=== PATIENT | female | born 1930 | race Caucasian/White ===

== ENCOUNTER 2016-10-25 19:07 | Inpatient (IN) | payer MEDICARE, BC ==
[~2016-10-25] VITALS: Ht 160 cm; Wt 106.2 kg
[~2016-10-25 19:07] MED LIST: HYDR-4246 PO; METF500T4 PO; TRAM50TA4 PO
--- OUTSIDE RECORDS SUMMARY | 2016-10-25 19:10 | XMS REPORT ---
Author Author [facility]. Organization [facility] Address [address] [facility] [facility] [place] [address] Phone [phone] Summary purpose CCDA Sent to [facility] Chief Complaint and Reason for Visit No authorized Reason for Visit (Admitting Diagnosis) is available for this visit. Problem list No authorized problems tracked for continuity of care are available for this visit. Encounters No authorized problems tracked for encounter diagnoses are available for this visit. Medications No home medications recorded for this patient visit Allergies, adverse reactions, alerts Allergen Category Ingredient Status Reaction Severity Onset No Known Drug Allergy No Known Drug Allergy No Known Drug Allergy Active Immunizations No immunizations recorded for this patient visit Relevant diagnostic tests and/or laboratory data No authorized results are available for this patient visit History of procedures No procedures recorded for this patient visit. Functional status Cognitive Status Finding Observation Time Level of Consciousne Alert :15 Oriented to Person Yes :[address] Yes :15 Oriented to Time Yes :15 Vital signs Type Value Date Respirations 20 :19 Pulse 108 :48 O2 Saturation 92% :48 Systolic Blood Press 165mm/HG :48 Diastolic Blood Pres 94mm/HG :48 Temperature (Fahr) 98.5Degrees :19 Social history Type Value Smoking Status NEVER SMOKER Treatment Plan No treatment plan text is available for this visit. Hospital discharge instructions No discharge instruction text is available for this visit.
--- OUTSIDE RECORDS SUMMARY | 2016-10-25 19:10 | XMS REPORT ---
Author Author [facility] Organization [facility] Address [address] [facility] [address] [place] [address] Phone [phone] Summary purpose CCDA Sent to [facility] Chief Complaint and Reason for Visit No authorized Reason for Visit (Admitting Diagnosis) is available for this visit. Problem list No authorized problems tracked for continuity of care are available for this visit. Encounters No authorized problems tracked for encounter diagnoses are available for this visit. Medications No medications recorded for this patient visit Allergies, adverse reactions, alerts Allergen Category Ingredient Status Reaction Severity Onset No Known Drug Allergy No Known Drug Allergy No Known Drug Allergy Active Immunizations No immunizations recorded for this patient visit Relevant diagnostic tests and/or laboratory data RESULTS CBC :20:00 Result Normal Range Units WBC 8.01 4.8-10.8 x103/mm3 Neutrophil % 64.1 50-70 % Lymph % 24.5 20-50 % [place] % 8.0 1.0-9.0 % Eosinophil % 3.0 0-4 % Basophil % 0.4 0-2 % Neutrophil # 5.14 3.0-7.0 x103/mm3 Lymph # 1.96 1.0-4.0 x103/mm3 [place] # 0.64 0.0-0.8 x103/mm3 Eosinophil # 0.24 0-0.5 x103/mm3 Basophil # 0.03 0-0.2 x103/mm3 RBC L 3.78 4.20-5.40 x103/mm3 HGB L 11.7 12.0-16.0 g/dl HCT L 36.4 37.0-47.0 % MCV 96.3 81-99 FL MCH 31.0 27.0-31.0 pg MCHC 32.1 32.0-36.0 g/dl RDW 13.1 12-15 % Platelet 185 150-400 x103/mm3 MPV H 14.4 6.0-10.0 FL Chemistry Group [id number]:20:00 Result Normal Range Units Sodium 143 134-145 mmol/L Potassium 4.7 3.6-5.0 mmol/L Chloride 105 98-107 mmol/L CO2 24 22-30 mmol/L Glucose 91 75-110 mg/dl BUN 15 9-20 mg/dl Creatinine L .7 0.8-1.7 mg/dl Total Protein 7.7 6.3-8.2 g/dl Albumin 4.1 3.5-5.0 g/dl Calcium 9.9 8.4-10.2 mg/dl Alk Phos 80 38-126 U/L AST 19 14-36 U/L ALT 24 11-66 U/L T Bili .4 0.2-1.3 mg/dl A/G Ratio 1.1 Ratio Special Chemistry Group :20:00 Result Normal Range Units TSH 4.61 0.50-6.00 uIU/mL History of procedures Procedure Code Code Type Description Date Performed Performing Physician 71179 CPT-4 COMPLETE CBC, AUTOMATED 07-13-2015 [facility] [address]1894 CPT-4 COMPREHEN METABOLIC PANEL 07-13-2015 [facility] 63195 CPT-4 ASSAY THYROID STIM HORMONE 07-13-2015 [facility] Functional status No functional or cognitive status observations are available for this visit. Vital signs No authorized vital signs are available for this visit. Social history No Social History or smoking status observations were recorded for this visit. ( Unknown if ever smoked.) Treatment Plan No treatment plan text is available for this visit. Hospital discharge instructions No discharge instruction text is available for this visit.
--- OUTSIDE RECORDS SUMMARY | 2016-10-25 19:10 | XMS REPORT | Referral Summary ---
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 Final: Facial weakness following cerebral infarction Final: Other sequelae of cerebral infarction Final: Other disturbances of skin sensation Final: Type 2 diabetes mellitus without complications Final: Hyperlipidemia, unspecified Final: Obstructive sleep apnea (adult) (pediatric) Final: Essential (primary) hypertension Final: Disorientation, unspecified Final: Major depressive disorder, single episode, unspecified [facility]ending [facility]ician: Hilary Poon DO Admitting Physician: Yahir Edmond MD Vital Signs Most recent to 1 oldest [Reference Range]: Temperature Oral 36.5 degC [35.8-37.3 degC] (08/18/15 6:45 AM) Peripheral Pulse 76 bpm Rate [60-100 bpm] (08/18/15 6:45 AM) Heart Rate Monitored 72 bpm [60-100 bpm] (08/14/15 5:15 AM) Respiratory Rate 18 br/min [14-20 br/min] (08/18/15 6:45 AM) Blood Pressure 138/74 mmHg [90-140/60-90 mmHg] (08/18/15 6:45 AM) Mean Arterial 87 mmHg Pressure, Cuff (08/12/15 4:32 AM) SpO2 94 % (08/18/15 6:45 AM) Problem List Condition Effective Dates Status Health Status Informant Acute Active pain(Confirmed) At risk for Resolved aspiration(Confirmed )1 At risk for Resolved injury(Confirmed)2 At risk for unstable Active blood glucose level(Confirmed)3 At risk of pressure Active sore(Confirmed) Impaired 07/28/15 Active mobility(Confirmed)4 Knowledge Resolved deficit(Confirmed)5 Self -care 07/28/15 Resolved deficit(Confirmed)6 Tissue perfusion Active alteration(Confirmed )7 Diabetes mellitus Active patient type 2 in obese(Confirmed) Urinary Active incontinence(Confirm ed)8 1Problem added automatically by system based on initiation of At Risk for Aspiration Plan of Care 2Problem added automatically by system based on initiation of Risk for Injury Plan of Care 3Problem added automatically by system based on initiation of At Risk for Unstable Blood Glucose Plan of Care 4Problem added by Discern Expert 5Problem added automatically by system based on initiation of Knowledge Deficit Plan of Care 6Problem added by Discern Expert 7Problem added automatically by system based on initiation of Tissue Perfusion Cerebral Plan of Care 8Problem added automatically by system based on initiation of Urinary Incontinence Plan of Care Allergies, Adverse Reactions, Alerts No Known Medication Allergies Medications acetaminophen 325 mg oral tablet 650 mg 2 tabs, Oral, q6hr, Pain Mild (1-3), 0 Refill(s) Start Date: 07/28/15 Status: Ordered amLODIPine 5 mg oral tablet 5 mg 1 tabs, Oral, Daily, 0 Refill(s) Start Date: 08/17/15 Status: Ordered aspirin 325 mg oral tablet 325 mg 1 tabs, Oral, Daily, 0 Refill(s) Start Date: 08/17/15 Status: Ordered atorvastatin 80 mg oral tablet 80 mg 1 tabs, Oral, Daily, 0 Refill(s) Start Date: 08/17/15 Status: Ordered Benadryl 25 mg oral tablet 50 mg 2 tabs, Oral, Bedtime (once a day), Insomnia, 0 Refill(s) Start Date: 08/17/15 Status: Ordered citalopram 20 mg oral tablet 10 mg 0.5 tabs, Oral, Daily, 0 Refill(s) Start Date: 08/17/15 Status: Ordered cyclobenzaprine 5 mg oral tablet 5 mg 1 tabs, Oral, TID, Leg Cramps, 0 Refill(s) Start Date: 08/17/15 Status: Ordered insulin detemir 100 units/mL subcutaneous solution 5 units, SubCutaneous, Bedtime (once a day), 0 Refill(s) Start Date: 08/17/15 Status: Ordered lactulose 10 g/15 mL oral syrup 20 g 30 mL, Oral, TID, Constipation, 0 Refill(s) Start Date: 08/17/15 Status: Ordered Senna S 50 mg-8.6 mg oral tablet 1 tabs, Oral, BID, 0 Refill(s) Start Date: 08/17/15 Status: Ordered Voltaren 1% topical gel 1 hair, Topical, QID, 0 Refill(s) Start Date: 08/17/15 Status: Ordered Results Hematology Most recent to 1 oldest [Reference Range]: WBC [4.8-10.8 7.6 10*3/uL 10*3/uL] (08/16/15 8:39 AM) RBC [4.00-5.20] 3.95 *LOW* (08/16/15 8:39 AM) Hgb [12.0-16.0 12.1 gm/dL gm/dL] (08/16/15 8:39 AM) Hct [37.0-47.0 %] 37.7 % (08/16/15 8:39 AM) MCV [82.0-99.0 fL] 95.4 fL (08/16/15 8:39 AM) MCH [27.0-32.0 pg] 30.6 pg (08/16/15 8:39 AM) MCHC [32.0-36.0 32.1 gm/dL gm/dL] (08/16/15 8:39 AM) RDW [11.5-14.5 %] 13.2 % (08/16/15 8:39 AM) Platelet [150-400 217 10*3/uL 10*3/uL] (08/16/15 8:39 AM) MPV [9.4-12.4 fL] 12.7 fL *HI* (08/16/15 8:39 AM) Immature 0.1 % Granulocytes (08/16/15 8:39 AM) [0.0-1.0 %] Neutrophils [51-75 65 % %] (08/16/15 8:39 AM) Lymphocytes [20-46 22 % %] (08/16/15 8:39 AM) Monocytes [4-11 %] 8 % (08/16/15 8:39 AM) Eosinophils [0-4 %] 4 % (08/16/15 8:39 AM) Basophils [0-2 %] 1 % (08/16/15 8:39 AM) Neutro Absolute 4.92 10*3 [1.90-7.00 10*3] (08/16/15 8:39 AM) Lymph Absolute 1.65 10*3 [0.80-3.30 10*3] (08/16/15 8:39 AM) [place] Absolute 0.61 10*3 [0.30-1.00 10*3] (08/16/15 8:39 AM) Eos Absolute 0.32 10*3 [0.00-0.50 10*3] (08/16/15 8:39 AM) Baso Absolute 0.05 10*3 [0.00-0.20 10*3] (08/16/15 8:39 AM) Chemistry Most recent to 1 oldest [Reference Range]: Sodium Lvl [136-144 137 mEq/L mEq/L] (08/16/15 8:39 AM) Potassium Lvl 4.2 mEq/L [3.6-5.1 mEq/L] (08/16/15 8:39 AM) Chloride [99-109 107 mEq/L mEq/L] (08/16/15 8:39 AM) CO2 [22-32 mEq/L] 22 mEq/L (08/16/15 8:39 AM) AGAP [3-20] 8 (08/16/15 8:39 AM) BUN [4-20 mg/dL] 17 mg/dL (08/16/15 8:39 AM) Glucose Lvl [70-100 135 mg/dL mg/dL] *HI* (08/16/15 8:39 AM) Creatinine Lvl 0.69 mg/dL [0.44-1.03 mg/dL] (08/16/15 8:39 AM) eGFR [>60] >60 1 (08/16/15 8:39 AM) Calcium Lvl 9.2 mg/dL [8.6-10.0 mg/dL] (08/16/15 8:39 AM) Albumin Lvl [3.5-4.8 3.9 gm/dL gm/dL] (08/16/15 8:39 AM) Magnesium Lvl 2.2 mg/dL [1.8-2.5 mg/dL] (08/16/15 8:39 AM) Phosphorus [2.4-4.7 2.9 mg/dL 2 mg/dL] (08/16/15 8:39 AM) Blood Glucose, 170 mg/dL Capillary [70-100 *HI* mg/dL] (08/18/15 12:24 PM) 1Result Comment: Multiply eGFR results by 1.21 for race. 2Result Comment: High dosages of liposomal Amphotericin B (AmBisome) therapy or other drug preparations that use a liposomal envelope to facilitate drug delivery may cause falsely elevated results for phosphorus. Urinalysis Most recent to 1 oldest [Reference Range]: UA Color Lt Yellow (08/18/15 6:40 AM) UA Appear Clear (08/18/15 6:40 AM) UA pH [5.0-8.0] 5.0 (08/18/15 6:40 AM) UA Leuk Est Negative [Negative] (08/18/15 6:40 AM) UA Nitrite Negative [Negative] (08/18/15 6:40 AM) UA Protein Negative [Negative] (08/18/15 6:40 AM) UA Glucose Negative [Negative] (08/18/15 6:40 AM) UA Ketones Trace [Negative] *ABN* (08/18/15 6:40 AM) UA Urobilinogen Negative [<1.0] (08/18/15 6:40 AM) UA Bili [Negative] Negative (08/18/15 6:40 AM) UA Blood [Negative] Negative (08/18/15 6:40 AM) UA Spec Grav 1.020 [1.003-1.030] (08/18/15 6:40 AM) Type Clean Catch (08/18/15 6:40 AM) UA WBC [0-4] 10-20 *ABN* (08/10/15 7:00 PM) UA RBC [0-2] 0-2 (07/28/15 10:44 PM) Epithelial Cells 5-10 (08/10/15 7:00 PM) UA Bacteria Moderate *ABN* (08/10/15 7:00 PM) Crystals Amorphous (08/10/15 7:00 PM) Microbiology Reports TEST: Urine Culture STATUS: Auth (Verified) BODY SITE: SOURCE: Urine COLLECTED DATE/TIME: 08/10/15 7:00 PM Urine Culture - - - - - - - Positive urine culture (even if >100,000 cfu/ml) without presence of symptoms does not require antibiotic treatment unless the patient is or undergoing urinary surgery. Please document as bacteriuria. Klebsiella pneumoniae >100,000 cfu/ml ORGANISM:Klebsiella pneumoniae TEST: Urine Culture STATUS: Auth (Verified) BODY SITE: SOURCE: Urine, Clean Catch COLLECTED DATE/TIME: 07/28/15 10:44 PM Urine Culture Low counts of multiple isolates. No further workup will be performed on this culture. Immunizations Vaccine Date Refusal Reason influenza virus vaccine, inactivated 08/03/15 Patient Refuses pneumococcal 23-polyvalent vaccine 08/09/04 pneumococcal 23-polyvalent vaccine 07/13/99 tetanus-diphth toxoids (Td) adult/adol 06/29/99 Procedures No data available for this section Social History Social History Type Response Smoking Status Former smoker Assessment and Plan No data available for this section
--- OUTSIDE RECORDS SUMMARY | 2016-10-25 19:10 | XMS REPORT | Referral Summary ---
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 Role Phone No PCP, Pt States Primary Care Physician [phone] Encounter VC Date(s): 07/24/15 - 07/28/15 [facility] [address] [place] [address] Discharge Disposition: [facility]-Inpatient Rehab Facility Attending Physician: Rashard Bauer JR, MD Admitting Physician: Marcus Tabor MD Vital Signs Most recent to 1 oldest [Reference Range]: Temperature Oral 36.8 degC [35.8-37.3 degC] (07/24/15 8:36 PM) Temperature Tympanic 36.8 degC [36.6-38.1 degC] (07/24/15 11:33 PM) Temperature Temporal 36.6 degC Artery [36.3-37.8 (07/28/15 8:00 AM) degC] Peripheral Pulse 104 bpm Rate [60-100 bpm] *HI* (07/26/15 4:07 AM) Heart Rate Monitored 93 bpm [60-100 bpm] (07/28/15 9:00 AM) Respiratory Rate 20 br/min [14-20 br/min] (07/28/15 9:00 AM) Blood Pressure 135/80 mmHg [90-140/60-90 mmHg] (07/28/15 9:00 AM) Mean Arterial 90 mmHg Pressure, Cuff (07/28/15 9:00 AM) SpO2 95 % (07/28/15 9:00 AM) Problem List Condition Effective Dates Status Health Status Informant Acute Active pain(Confirmed) At risk for Active aspiration(Confirmed )1 At risk for Active injury(Confirmed)2 At risk for unstable Active blood glucose level(Confirmed)3 At risk of pressure Active sore(Confirmed) Impaired 07/28/15 Active mobility(Confirmed)4 Knowledge Active deficit(Confirmed)5 Self -care 07/28/15 Active deficit(Confirmed)6 Tissue perfusion Active alteration(Confirmed )7 Diabetes [...] tablet 650 mg 2 tabs, Oral, q6hr, Fever, 0 Refill(s) Start Date: 07/28/15 Status: Ordered Results Hematology Most recent to 1 oldest [Reference Range]: WBC [4.8-10.8 12.7 10*3/uL 10*3/uL] *HI* (07/28/15 3:41 AM) RBC [4.00-5.20] 4.26 (07/28/15 3:41 AM) Hgb [12.0-16.0 13.0 gm/dL gm/dL] (07/28/15 3:41 AM) Hct [37.0-47.0 %] 39.9 % (07/28/15 3:41 AM) MCV [82.0-99.0 fL] 93.7 fL (07/28/15 3:41 AM) MCH [27.0-32.0 pg] 30.5 pg (07/28/15 3:41 AM) MCHC [32.0-36.0 32.6 gm/dL gm/dL] (07/28/15 3:41 AM) RDW [11.5-14.5 %] 13.6 % (07/28/15 3:41 AM) Platelet [150-400 242 10*3/uL 10*3/uL] (07/28/15 3:41 AM) MPV [9.4-12.4 fL] 12.8 fL *HI* (07/28/15 3:41 AM) Immature 0.6 % Granulocytes (07/24/15 8:10 PM) [0.0-1.0 %] Neutrophils [51-75 70 % %] (07/24/15 8:10 PM) Lymphocytes [20-46 18 % %] *LOW* (07/24/15 8:10 PM) Monocytes [4-11 %] 8 % (07/24/15 8:10 PM) Eosinophils [0-4 %] 3 % (07/24/15 8:10 PM) Basophils [0-2 %] 0 % (07/24/15 8:10 PM) Neutro Absolute 7.31 10*3 [1.90-7.00 10*3] *HI* (07/24/15 8:10 PM) Lymph Absolute 1.88 10*3 [0.80-3.30 10*3] (07/24/15 8:10 PM) [place] Absolute 0.84 10*3 [0.30-1.00 10*3] (07/24/15 8:10 PM) Eos Absolute 0.27 10*3 [0.00-0.50 10*3] (07/24/15 8:10 PM) Baso Absolute 0.04 10*3 [0.00-0.20 10*3] (07/24/15 8:10 PM) Nucleated RBC 0.0 /100 WBC Automated [0 /100 (07/24/15 8:10 PM) WBC] Coagulation Most recent to 1 oldest [Reference Range]: INR [0.9-1.2] 1.0 (07/24/15 8:10 PM) PTT [25.0-35.0 34.5 seconds seconds] (07/24/15 8:10 PM) Chemistry Most recent to 1 oldest [Reference Range]: Sodium Lvl [136-144 137 mEq/L mEq/L] (07/28/15 3:41 AM) Potassium Lvl 3.7 mEq/L [3.6-5.1 mEq/L] (07/28/15 3:41 AM) Chloride [99-109 108 mEq/L mEq/L] (07/28/15 3:41 AM) CO2 [22-32 mEq/L] 20 mEq/L *LOW* (07/28/15 3:41 AM) AGAP [3-20] 9 (07/28/15 3:41 AM) BUN [4-20 mg/dL] 29 mg/dL *HI* (07/28/15 3:41 AM) Glucose Lvl [70-100 149 mg/dL mg/dL] *HI* (07/28/15 3:41 AM) Creatinine Lvl 0.83 mg/dL [0.44-1.03 mg/dL] (07/28/15 3:41 AM) eGFR [>60] >60 1 (07/28/15 3:41 AM) Calcium Lvl 9.1 mg/dL [8.6-10.0 mg/dL] (07/28/15 3:41 AM) Albumin Lvl [3.5-4.8 3.8 gm/dL gm/dL] (07/28/15 3:41 AM) Magnesium Lvl 2.3 mg/dL [1.8-2.5 mg/dL] (07/28/15 3:41 AM) Phosphorus [2.4-4.7 2.9 mg/dL 2 mg/dL] (07/28/15 3:41 AM) Troponin [<0.06 <0.05 ng/mL ng/mL] (07/24/15 8:10 PM) Sodium Venous 135 mEq/L [136-144 mEq/L] *LOW* (07/24/15 8:24 PM) Potassium Venous 4.1 mEq/L 3 [3.6-5.1 mEq/L] (07/24/15 8:24 PM) Calcium Ionized 1.09 mmol/L Venous [1.19-1.41 *LOW* mmol/L] (07/24/15 8:24 PM) Total CO2 Venous 25 mEq/L [25-29 mEq/L] (07/24/15 8:24 PM) HGB Venous NPT 11.2 gm/dL [12.0-16.0 gm/dL] *LOW* (07/24/15 8:24 PM) HCT Venous 33.0 % [37.0-47.0 %] *LOW* (07/24/15 8:24 PM) Glucose Venous 155 mg/dL [70-100 mg/dL] *HI* (07/24/15 8:24 PM) BUN Venous [4-20] 15 (07/24/15 8:24 PM) Creatinine Venous 0.9 mg/dL [0.4-1.0 mg/dL] (07/24/15 8:24 PM) Venous CL [99-109 113 mEq/L mEq/L] *HI* (07/24/15 8:24 PM) Anion Gap, Josr -3 [3-20] *LOW* (07/24/15 8:24 PM) Blood Glucose, 159 mg/dL Capillary [70-100 *HI* mg/dL] (07/28/15 7:03 AM) Chol [0-200 mg/dL] 212 mg/dL *HI* (07/25/15 3:52 AM) Trig [0-150 mg/dL] 181 mg/dL *HI* (07/25/15 3:52 AM) HDL [>40 mg/dL] 37 mg/dL *ABN* (07/25/15 3:52 AM) LDL [0-100 mg/dL] 139 mg/dL *HI* (07/25/15 3:52 AM) VLDL Cholesterol 36 mg/dL [0-30 mg/dL] *HI* (07/25/15 3:52 AM) Cardiac Risk 5.7 [0.0-5.0] *HI* (07/25/15 3:52 AM) Hgb A1c [4.1-5.6 %] 6.7 % *HI* (07/24/15 8:10 PM) eAvg Glucose 145.6 mg/dL (07/24/15 8:10 PM) 1Result Comment: Multiply eGFR results by 1.21 for race. 2Result Comment: High dosages of liposomal Amphotericin B (AmBisome) therapy or other drug preparations that use a liposomal envelope to facilitate drug delivery may cause falsely elevated results for phosphorus. 3Result Comment: This test was performed on a whole blood specimen. The presence or absence of hemolysis cannot be assessed. Hemolysis can falsely elevate potassium levels. Normals are for venous specimens only. Urinalysis Most recent to 1 oldest [Reference Range]: UA Color Yellow (07/25/15 8:39 AM) UA Appear Sl Cloudy (07/25/15 8:39 AM) UA pH [5.0-8.0] 7.0 (07/25/15 8:39 AM) UA Leuk Est Negative [Negative] (07/25/15 8:39 AM) UA Nitrite Negative [Negative] (07/25/15 8:39 AM) UA Protein Negative [Negative] (07/25/15 8:39 AM) UA Glucose Negative [Negative] (07/25/15 8:39 AM) UA Ketones Negative [Negative] (07/25/15 8:39 AM) UA Urobilinogen Negative [<1.0] (07/25/15 8:39 AM) UA Bili [Negative] Negative (07/25/15 8:39 AM) UA Blood [Negative] Negative (07/25/15 8:39 AM) UA Spec Grav 1.020 [1.003-1.030] (07/25/15 8:39 AM) Type Clean Catch (07/25/15 8:39 AM) Immunizations Vaccine Date Refusal Reason pneumococcal 23-polyvalent vaccine 08/09/04 pneumococcal 23-polyvalent vaccine 07/13/99 tetanus-diphth toxoids (Td) adult/adol 06/29/99 Procedures No data available for this section Social History Social History Type Response Smoking Status Former smoker Assessment and Plan No data available for this section
--- OUTSIDE RECORDS SUMMARY | 2016-10-25 19:10 | XMS REPORT | Continuity of Care Document ---
Author Author [facility] [employer]. Organization [facility] Address Unknown Phone Unavailable Allergies Active Description Code Type Severity Reaction Onset Reported/Identified Relationship to Patient Clinical Status Yes No Known Drug Allergy 84047266 ND N/A N/A 04/22/2015 Confirmed or Verified Medications Problems Date Dx Coded Attending Type Code Diagnosis Diagnosed By 08/26/2013 SNEHA DAHL MD, BETSY Martines 250.00 DM2/NOS UNCOMP NSU 08/26/2013 BETSY MENJIVAR MD 715.16 LOC PRIM OSTEOART-L/LEG 12/25/2013 SNEHA DAHL MD, BETSY Martines 250.00 DM2/NOS UNCOMP NSU 12/25/2013 BETSY MENJIVAR MD 715.16 LOC PRIM OSTEOART-L/LEG 04/22/2015 BARI DIANE, SANDRA Martines J02.9 Acute pharyngitis, unspecified 07/13/2015 SNEHA DAHL MD, BETSY Martines E11.9 Type 2 diabetes mellitus without complications 07/13/2015 SNEHA DAHL MD, BETSY Martines R53.82 Chronic fatigue, unspecified Procedures Code Description [place] [address] METABOLIC PANEL TOTAL CA SNEHA DAHL MD, BETSY R 08/26/2013 28797 COMPLETE CBC, AUTOMATED SNEHA DAHL MD, BETSY Polanco 08/26/2013 79380 METABOLIC PANEL TOTAL CA SNEHA DAHL MD, BETSY R 12/25/2013 34334 LIPID PANEL SNEHA DAHL MD, BETSY Polanco 12/25/2013 60024 COMPLETE CBC, AUTOMATED SNEHA DAHL MD, BETSY Polanco 12/25/2013 39478 EMERGENCY DEPT VISIT SANDRA CANDELARIA MD 04/22/2015 29954 COMPREHEN METABOLIC PANEL SNEHA DAHL MD, BETSY Polanco 07/13/2015 11790 ASSAY THYROID STIM HORMONE SNEHA DAHL MD, BETSY Polanco 07/13/2015 83306 COMPLETE CBC, AUTOMATED SNEHA DAHL MD, BETSY Polanco 07/13/2015 Encounters ACCT No. Visit Date/Time Discharge Status Pt. Type Provider Facility Loc./Unit Complaint [id number] 07/14/2015 09:39:00 07/14/2015 09:39:00 DIS Outpatient SNEHA DAHL MD, [facility] [id number] 04/22/2015 19:13:00 04/22/2015 21:00:00 DIS Emergency BARI DIANE, [facility] ER [id number] 12/25/2013 13:30:00 12/25/2013 13:30:00 DIS Outpatient SNEHA DAHL MD, [facility] [id number] 08/26/2013 14:57:00 08/26/2013 14:57:00 [facility]
--- OUTSIDE RECORDS SUMMARY | 2016-10-25 19:10 | XMS REPORT | Continuity of Care Document ---
Author Author [facility] Organization [facility] Address Unknown Phone Unavailable Support Name Relationship Address Phone KERWINVINAY SAMPSON Caregiver [facility] [address] [place], [place] [id number] BETSY MENJIVAR MD Caregiver [facility] [address] [place] [address] RODERICK NEAL Next Of Kin [address] [place] [address] Advance Directives Directive Response Recorded Date/Time Advanced Directives Type None 06/22/14 1:17pm Problems Medical Problems Problem Onset Date Status Contusion of coccyx Unknown Active Fall Unknown Active Contusion of coccyx Unknown Active Medications Medication Dose Route Sig Days/Qty Instructions Order Date Discontinued Date Status Metformin HCl 500 Mg PO TWICE DAILY WITH MEALS Take one tablet, by mouth , 2 times a day with Meals. 06/22/14 Active Tramadol HCl 50 Mg PO PRN PAIN/AIR HUNGER 06/22/14 Active Hydrocodone/Acetaminophen 1 Tab PO EVERY 4-6 HOURS 20 Qty 06/22/14 Active Social History Social History Problem Response Recorded Date/Time Tobacco Usage none 06/22/2014 2:31pm Query Response Start Date Stop Date Smoking Status Never smoker Hospital Discharge Instructions Discharge Medications/Orders are not finalized. Discharge Medications/Orders are not finalized. Reason for Hospitalization: Hyponatremia I was in the hospital because (patient own words): "BUMPED MY HEAD" Discharge Diet: Regular; fluid restrict to 1500 cc/day Discharge Activity: Up with Assistance Follow Up Appointments: Dr Gallardo post discharge from [facility] Condition at time of discharge: Good Nebulizer Notify Physician If: Short of breath or wheezing Condition at time of discharge: Fair at [phone]. 2. Problems such as: Temp above 101.5 degrees You develop redness, excessive swelling of the incision, increasing pain or excessive foul smelling drainage. 3. If the office is closed, call [facility] at [phone] and have your Surgeon paged. Condition at time of discharge: Fair Discharge Diet: Regular Diet Discharge Activity: No weight bearing on left leg. Elevate left leg. Apply ice pack to left knee to reduce swelling. May ambulate with front wheeled walker but must avoid weight bearing left leg. Follow Up Appointments: Scheduled for surgical repair of left tibial plateau fracture by Dr. Guillermo Robb on 06/22/14. Patient Instructions: Same as discharge activity listed above Take medications as directed. Durable Medical Equipment: Front wheeled Walker Notify Physician If: Severe pain not controlled with Roxicodone 5 mg 1-2 tabs po q4-6hrs prn pain. Condition at time of discharge: Good Plan of Care Prescriptions See Medications Section Functional Status Query Response Date Recorded Physical Hygiene Self June 22, 2014 2:12pm Disabilities None June 22, 2014 2:12pm Devices Used Cane June 22, 2014 2:12pm Dressing Self June 22, 2014 2:12pm Ambulation Self June 22, 2014 2:12pm Diet Self June 22, 2014 2:12pm Mental Status Alert Oriented June 22, 2014 2:12pm Disabilities None June 22, 2014 2:12pm Devices Used Cane June 22, 2014 2:12pm Physical Hygiene Self June 22, 2014 2:12pm Dressing Self June 22, 2014 2:12pm Ambulation Self June 22, 2014 2:12pm Diet Self June 22, 2014 2:12pm Allergies, Adverse Reactions, Alerts Allergen Type Severity Reaction Status Last Updated No Known Allergies Active 06/22/14 Immunizations Name Given Type Hx Influenza Vaccination Y FALL 2013 Historical Hx Influenza Vaccination Y FALL 2013 Historical Vital Signs Acute Vital Signs Vital Response Date/Time Temperature (Fahrenheit) 97.2 deg F (96.8 - 99.1) Temperature (Calculated Celsius) 36.51715 degrees C (36.0 - 37.3) Pulse Rate (adult) 82 bpm (60 - 100) Respiratory Rate 16 breaths/min (10 - 20) O2 Sat by Pulse Oximetry 100 % (90 - 100) Blood Pressure 133/62 mm Hg Height 5 ft 4 in Weight 200 lb Body Mass Index 34.0 kg/m^2 Results Name: ESEQUIEL NEAL Unit #: [id number] : 1930 Sex: F Loc / Svc: ED DOS: 06/22/14 Signed Report #: [id number] DIAGNOSTIC IMAGING REPORT TYPE OF EXAM: PELVIS AP (1 or 2 view) Dictated By: GUILLERMO GREENE MD INDICATION: ITS.REASON: TAILBONE PAIN, FALL PELVIS AP (1 or 2 view): Comparison: None Findings: There is no acute fracture, dislocation or malalignment identified. Degenerative changes in the visualized lower lumbar spine. Mild degenerative change in both hips. Bony demineralization. Impression: No acute osseous abnormality. . Procedures No known history of procedures. Encounters Encounter Location Date/Time Departed Emergency Room [facility] 06/22/14 12:11pm Recent Diagnosis
--- OUTSIDE RECORDS SUMMARY | 2016-10-25 19:10 | XMS REPORT | Referral Summary ---
Author Author [facility] Organization [facility] Address Unknown Phone Unavailable Care Team Providers Care Receptionist Secretary Name Role Phone Murray Candelario Primary Care Physician [phone] Encounter [facility] [id number] Date(s): 11/22/15 - 11/22/[address] [facility] [address] [facility] [address] [place], [place] [address] Discharge Diagnosis: Acute ischemic stroke Discharge Diagnosis: Diabetes Discharge Diagnosis: HLD (hyperlipidemia) Discharge Diagnosis: Right hemiparesis Discharge Disposition: 01-Home or Self Care Attending Physician: Elijah Rodriguez MD Admitting Physician: Elijah Rodriguez MD Vital Signs Most recent to 1 oldest [Reference Range]: Peripheral Pulse 78 bpm Rate [60-100 bpm] (11/22/15 12:48 PM) Blood Pressure 126/70 mmHg [90-140/60-90 mmHg] (11/22/15 12:48 PM) Problem List Condition Effective Dates Status Health [...] 0 Refill(s) Start Date: 08/17/15 Status: Ordered metFORMIN 500 mg oral tablet 500 mg 1 tabs, Oral, BID, # 60 tabs, 0 Refill(s) Start Date: 11/22/15 Status: Ordered Senna S 50 mg-8.6 mg oral tablet 1 tabs, Oral, BID, 0 Refill(s) Start Date: 08/17/15 Status: Ordered traMADol 50 mg oral tablet 100 mg 2 tabs, Oral, Daily, [facility] [phone], # 60 tabs, 0 Refill(s) Start Date: 11/16/15 Status: Ordered Voltaren 1% topical gel 1 hair, Topical, QID, 0 Refill(s) Start Date: 08/17/15 Status: Ordered Results No data available for this section Immunizations Vaccine Date Refusal Reason influenza virus vaccine, inactivated 08/03/15 Patient Refuses pneumococcal 23-polyvalent vaccine 08/09/04 pneumococcal 23-polyvalent vaccine 07/13/99 tetanus-diphth toxoids (Td) adult/adol 06/29/99 Procedures No data available for this section Social History Social History Type Response Smoking Status Former smoker Assessment and Plan Extracted from: Title: Neurology initial Office Author: Elijah Rodriguez MD Date: 11/22/15 Visit Note Assessment/Plan 1.Acute ischemic stroke Discussed risk factors for her ischemic stroke including DM, hyperlipidemia, and age. Continue ASA 325mg daily Continue Lipitor 80mg daily Stroke counselling: We discussed smoke cessation, healthy diet, exercise, stroke risk factors, signs and symptoms of stroke, what to do in case of suspected acute stroke, options of treatment for acute ischemic stroke including tPA, importance of dialling 911. 2.Diabetes Continue management per PCP 3.HLD (hyperlipidemia) Continue [id number] daily 4.Right hemiparesis Continue physical therapy, the patient reports continued improvement Time spent with the patient: 45min with greater than 50% of the office visit spent in counseling the patient, coordination of care, reviewing diagnostic studies, treatment options, follow up plan, and answering the patient's questions. No need for routine follow up but I will be happy to schedule a follow up appointment if the patient and/or the PCP wish so.
--- NOTE | 2016-10-25 19:23 | NUR ---
TO XRAY VIA CART
--- OUTSIDE RECORDS SUMMARY | 2016-10-25 19:33 | XMS REPORT | Continuity of Care Document ---
Author Author [facility] [employer]. Organization [facility] Address Unknown Phone Unavailable Allergies Active Description Code Type Severity Reaction Onset Reported/Identified Relationship to Patient Clinical Status Yes No Known Drug Allergy 94614165 ND N/A N/A 04/22/2015 Confirmed or Verified [...] Procedures Code [place] [address] METABOLIC PANEL TOTAL CA SNEHA DAHL MD, BETSY R 08/26/2013 42006 COMPLETE CBC, AUTOMATED SNEHA DAHL MD, BETSY Polanco 08/26/2013 [id number] METABOLIC PANEL TOTAL CA SNEHA DAHL MD, BETSY R 12/25/2013 87956 LIPID PANEL SNEHA DAHL MD, BETSY Polanco 12/25/2013 [id number] COMPLETE CBC, AUTOMATED SNEHA DAHL MD, BETSY Polanco 12/25/2013 86450 EMERGENCY DEPT VISIT SANDRA CANDELARIA MD 04/22/2015 [id number] COMPREHEN METABOLIC PANEL SNEHA DAHL MD, BETSY Polanco 07/13/2015 47137 ASSAY THYROID STIM HORMONE SNEHA ADHL MD, BETSY Polanco 07/13/2015 [id number] COMPLETE CBC, AUTOMATED SNEHA DAHL MD, BETSY Polanco 07/13/2015 Encounters ACCT No. Visit Date/Time Discharge Status Pt. Type Provider Facility Loc./Unit Complaint [id number] 07/14/2015 09:39:00 07/14/2015 09:39:00 DIS Outpatient SNEHA DAHL MD, [facility] [id number] 04/22/2015 19:13:00 04/22/2015 21:00:00 DIS Emergency BARI DIANE, [facility] ER [id number] 12/25/2013 13:30:00 12/25/2013 13:30:00 DIS Outpatient SNEHA DAHL MD, [facility] [id number] 08/26/2013 14:57:00 08/26/2013 14:57:00 [facility]
--- OUTSIDE RECORDS SUMMARY | 2016-10-25 19:33 | XMS REPORT | Continuity of Care Document ---
Author Author [facility] Organization [facility] Address Unknown Phone Unavailable Support Name Relationship Address Phone KERWINVINAY SAMPSON Caregiver [facility] [address] [place], [place] [phone] BETSY MENJIVAR MD Caregiver [facility] [address] [place] [address] RODERICK NEAL Next Of Kin [address] [place] [address] Advance Directives Directive Response Recorded Date/Time Advanced [...] Up with Assistance Follow Up Appointments: Dr Gallarod post discharge from [facility] [place] Condition at time of discharge: Good Nebulizer Notify Physician If: Short of breath or wheezing Condition at time of discharge: Fair at [phone]. 2. Problems such as: Temp above 101.5 degrees You develop redness, excessive swelling of the incision, increasing pain or excessive foul smelling drainage. 3. If the office is closed, call [facility] at [phone] and have your Surgeon paged. Condition at [...] F (96.8 - 99.1) Temperature (Calculated Celsius) 36.16574 degrees C (36.0 - 37.3) Pulse Rate (adult) 82 bpm (60 - 100) Respiratory Rate 16 breaths/min (10 - 20) O2 Sat by Pulse Oximetry 100 % (90 - 100) Blood Pressure 133/62 mm Hg Height 5 ft 4 in Weight 200 lb Body Mass Index 34.0 kg/m^2 Results Name: ESEQUIEL NEAL Unit #: [id number] : 1930 Sex: F Loc / Svc: ED DOS: 06/22/14 Signed Report #: [id number] DIAGNOSTIC IMAGING REPORT TYPE OF EXAM: PELVIS [...] Encounters Encounter Location Date/Time Departed Emergency Room [facility] 06/22/14 12:11pm Recent Diagnosis
--- NOTE | 2016-10-25 19:41 | ERPDOC ---
Departure Disposition Decision Date: Oct 25, 2016 Disposition Decision Time: 20:21 (KATHY FLORES APRN) Disposition: 01 DISCHARGED HOME, SELF-CARE Impression Impression (KATHY FLORES APRN) Impression: Primary Impression: Right femoral shaft fracture Qualified Codes: S72.321A - Displaced transverse fracture of shaft of right femur, initial encounter for closed fracture Severity: Moderate (KATHY FLORES APRN) Condition: Stable Seen By: Mid-level only (KATHY FLORES APRN) Referrals: BETSY MENJIVAR MD (Family) Problems/Meds/Labs Reviewed?: Yes Medications reviewed and manag: Yes (KATHY FLORES APRN) Follow up care ordered?: Yes Mental Status: Alert (KATHY FLORES APRN) Scripts Furosemide (Furosemide) 40 Mg Tablet 40 MG PO DAILY for 30 Days, #30 TAB Prov: HERNANDO GALEANO MD 10/30/16 Tramadol HCl (Ultram) 50 Mg Tablet 100 MG PO Q6H Y for PAIN for 30 Days, #240 TAB Prov: HERNANDO GALEANO MD 10/30/16 Enoxaparin Sodium (Lovenox) 40 Mg/0.4 Ml Inj 40 MG SQ Q24H for 30 Days Prov: HERNANDO GALEANO MD 10/30/16 Cephalexin (Keflex) 500 Mg Capsule 1 CAP PO TID for 3 Days, #9 CAP Prov: HERNANDO GALEANO MD 10/30/16 HPI - Hip Pain General Chief Complaint: Fall Stated Complaint: FALL Time Seen by Provider: 19:07 Source: patient, EMS Exam Limitations: no limitations (KATHY FLORES APRN) Time Seen by Provider: 19:07 (LOREE TERAN DO) HPI - Hip Pain Initial Comments She took her motorized scooter outside today to feed the chickens. The scooter tipped over and she fell out. 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 She was unable to get up and laid there for about 15 minutes. EMS was called as she was having a lot of right sided hip pain. Was noted to have shortening and rotation of the right leg once on the EMS cot. Was given Fentanyl 100mcg per EMS. She did hit her face on the ground when she fell and has abrasions on the face but is alert and oriented. Did not have any LOC and denies any neck pain. Occurred At: home Onset: Rapid Duration: 1-3 hrs Severity: moderate Location: hip (R) Associated Symptoms: trouble walking, DENIES: fatigue, fever, groin pain, insomnia, lumps, muscle aches, pain radiating to knees Hx of Similar Symptoms: No (NOLD,KATHY N FIRE MEDIC) Allergies: Coded Allergies: No Known Allergies (Unverified , 10/25/16) Past History Patient Medical History Problem List Updates: CVA with right sided weakness (NOLD,KATHY N FIRE MEDIC) Past Medical History Metabolic: diabetes, hypercholesterolemia Neurological: CVA Musculoskeletal: back pain, osteoarthritis (NOLD,KATHY N FIRE MEDIC) Surgical History Joint: knee, other (NOLD,KATHY N FIRE MEDIC) Family History Family History: Negative (NOLD,KATHY N FIRE MEDIC) Vaccines Hx Influenza Vaccination: Yes (FALL 2013) (NOLD,KATHY N FIRE MEDIC) Social History Smoking Status: Never smoker Substance Use Type: does not use Alcohol Intake: none (NOLD,KATHY N FIRE MEDIC) Review of Systems Constitutional Constitutional: DENIES: chills, dizziness, fatigue, fever, weakness (NOLD, KATHY N FI[employer] MEDIC) Cardiovascular Cardiac: DENIES: chest pain, orthopnea Rhythm/Rate: DENIES: irregular beat, palpitations (NOLD,KATHY N FIRE MEDIC) Pulmonary Respiratory: DENIES: cough, dyspnea, sputum, tachypnea (NOLD,KATHY N FIRE MEDIC) GI Upper Abdomen: DENIES: nausea, pain, vomiting Lower Abdomen: DENIES: constipation, diarrhea, pain (NOLD,KATHY N FIRE MEDIC) General: DENIES: dysuria, frequency, urgency (NOLD,KATHY N FIRE MEDIC) Musculoskeletal General: pain (right leg), tenderness (right leg and hip) (NOLD,KATHY N FIRE MEDIC) Integumentary Skin: DENIES: rash (NOLD,KATHY N FIRE MEDIC) Neurological General: DENIES: headache, numbness, tingling, weakness (NOLD,KATHY N FIRE MEDIC) Physical Exam General General Nourishment: well nourished, well developed, appears stated age, no acute distress, adult General Body Habitus: well groomed (KATHY FLORES APRN) Vitals and Pain Weight: Kilograms: Height (feet): 5 Height (inches): 4.00 Triage Pain Scale: (KATHY FLORES APRN) RN VS reviewed by Provider: Yes (KATHY FLORES APRN) Normal Exams: Neck: Full range of motion, without adenopathy, JVD, bruits or thyromegaly Chest/Resp: Clear all majano, with good airflow, and symmetry bilaterally CV: Regular rate and rhythm, without murmur or gallop, Pulses 2+ all extremities, capillary refill, <2 seconds all ext., no pedal edema noted Abdomen: Bowel sounds positive, soft, non-tender, non-distended, no hepatosplenomegaly, masses or bruits noted Lymphatic: No lymphadenopathy, or lymphedema noted Integumentary: No rashes, hives, or bruising noted Neurologic: Patient is alert, and oriented, cranial nerves, motor/sensory/ cerebellar, exams w/o gross deficits, to observation Psychiatric: Patient exhibits, appropriate attention, emotion and affect (KATHY FLORES APRN) Musculoskeletal (brief) Musculoskeletal Brief: FOUND: tenderness (She does have right lateral hip tenderness and TTP along the femur. Noted shortening and rotation on the right LE. Sensation is intact to RLE with right pedal pulse of 2+. ) (KATHY FLORES APRN) Differential Diagnoses Considering: Contusion, Fracture, Strain, Sprain (KATHY FLORES APRN) Progress Results/Orders Orders Procedure Category Date Status Time EKG EKG 10/25/[address] Head W/O Contrast CT 10/25/16 Resulted Cbc W/Auto LAB 10/25/16 Complete Diff-Reflex Manual Bmp - Basic Metabolic LAB 10/25/16 Complete Panel Pruitt (Ed) EDM 10/25/16 Transmitted 19:16 Femur Right RAD 10/25/16 Resulted Pelvis 1-2 View RAD 10/25/[address] In Facility As: ADMIT 10/25/16 Transmitted UA, LAB 10/25/16 Complete Dip&Micro(Complete) & 20:34 ( M DO) Lab Results Laboratory Tests Test 10/25/16 20:16 White Blood Count 13.0T/MM3 Red Blood Count 4.00M/MM3 Hemoglobin 12.4GM/DL Hematocrit 38.1% Mean Corpuscular Volume 95.3UM3 Mean Corpuscular Hemoglobin 31.0UUG Mean Corpuscular Hemoglobin Concent 32.5GM/DL RDW Standard Deviation 44.0FL Platelet Count 185T/MM3 Mean Platelet Volume 12.1UM3 Immature Granulocyte % (Auto) 0.5% Neutrophils (%) (Auto) 76.6% Lymphocytes (%) (Auto) 14.6% Monocytes (%) (Auto) 5.8% Eosinophils (%) (Auto) 2.1% Basophils (%) (Auto) 0.4% Absolute Immature Granulocyte (auto 0.07T/MM3 Absolute Neutrophils (auto) 9.9T/MM3 Absolute Lymphocytes (auto) 1.9T/MM3 Absolute Monocytes (auto) 0.8T/MM3 Absolute Eosinophils (auto) 0.3T/MM3 Absolute Basophils (auto) 0.1T/MM3 Turbidity < 20 Sodium Level 143MEQ/L Potassium Level 4.4MEQ/L Chloride Level 106MEQ/L Carbon Dioxide Level 23MEQ/L Anion Gap 14MEQ/L Blood Urea Nitrogen 15.0MG/DL Creatinine 0.8MG/DL Glomerular Filtration Rate Calc 68 BUN/Creatinine Ratio 19RATIO Glucose Level 133MG/DL Calculated Osmolality 278MOSM/KG Calcium Level 9.5MG/DL Icterus Index < 2 Chemistry Specimen Hemolysis < 15 (OCTOBER,LOREE M DO) Progress Progress WBC is 13. BMP is normal. UA does show nitrite positive, LE 2+, 20-30 WBC, and 4 + bacteria. Will treat with 1 G IV Rocephin. EKG shows NSR. Chest xray is clear. Head CT is negative. Xray of pelvis is without bony abnormality. Noted right femur fracture. Did talk with Dr Carmen regarding femur fracture. Will accept patient with hospitalist admission. Spoke with Dr Guevara who does accept for admission at this time. She does decline any need for pain medication while in Er. (KATHY FLORES FIRE MEDIC) Xray Xray #1: Reason for Exam: Fall with right LE shortening Xray: Pelvis Interpretation: Normal Xray #2: Reason for Exam: fall with right LE shortening Xray: Femur R Interpretation: Abnormal (right femoral shaft fracture) (KATHY FLORES APRN) CT CT : Reason for Exam: fall with head injury CT: Head no contrast Interpretation: Normal (KATHY FLORES APRN) KATHY FLORES APRN Oct 25, 2016 19:41 OCTOBERLOREE DO October 31, 2016 07:02
--- NOTE | 2016-10-25 19:59 | NUR ---
RETURN FROM CT
--- NOTE | 2016-10-25 20:16 | NUR ---
LAB LAB STAFF IN ROOM TO COLLECT BLOOD
[2016-10-25 20:30] LABS: BASOPHILS # (AUTO) 0.1 T/MM3 (0-0.2); BASOPHILS % (AUTO) 0.4 % (0-2); EOSINOPHILS # (AUTO) 0.3 T/MM3 (0-0.5); EOSINOPHILS % (AUTO) 2.1 % (0-4); HCT - HEMATOCRIT 38.1 % (36-46); HGB - HEMOGLOBIN 12.4 GM/DL (12-16); IMMATURE GRANULOCYTE # (AUTO) 0.07 T/MM3 (0.00-0.03); IMMATURE GRANULOCYTE % (AUTO) 0.5 % (0.0-0.5); LYMPHOCYTES # (AUTO) 1.9 T/MM3 (1-4.8); LYMPHOCYTES % (AUTO) 14.6 % (23-45); MEAN CORPUSCULAR HGB CONC(MCHC 32.5 GM/DL (31-37); MEAN CORPUSCULAR VOLUME 95.3 UM3 (80-100); MEAN PLATELET VOLUME 12.1 UM3 (9.4-12.4); MONOCYTES # (AUTO) 0.8 T/MM3 (0-0.8); MONOCYTES % (AUTO) 5.8 % (0-9.0); NEUTROPHILS #(AUTO)-ABSOLUTE 9.9 T/MM3 (1.8-7.7); NEUTROPHILS % (AUTO) 76.6 % (33-66)
[2016-10-25] MEDS ORDERED: ONDANSETRON 4mg/2ml INJECTION IV PRN (20:30)
[2016-10-25] MEDS ORDERED: DOCUSATE SODIUM 100 MG CAPSULE PO PRN (20:30)
[2016-10-25] MEDS ORDERED: ACETAMINOPHEN 325 MG TABLET PO PRN (20:30)
[2016-10-25] MEDS ORDERED: CITA20TA9 PO (20:35)
[2016-10-25] MEDS ORDERED: ASPI325T PO (20:35)
[2016-10-25] MEDS ORDERED: CYCL5TAB PO (20:36)
[2016-10-25] MEDS ORDERED: ACET-2890 PO (20:36)
[2016-10-25] MEDS ORDERED: ATOR80TA76 PO (20:36)
--- OUTSIDE RECORDS SUMMARY | 2016-10-25 20:37 | XMS REPORT | Continuity of Care Document ---
Author Author [facility] Organization [facility] Address Unknown Phone Unavailable Support Name Relationship Address Phone KERWINVINAY SAMPSON Caregiver [facility] [address] [place], [place] [phone] BETSY MENJIVAR MD Caregiver [facility] [address] [place] [address] RODERICK NEAL Next Of Kin [address] [place] [address] Advance Directives Directive Response Recorded Date/Time Advanced [...] Up Appointments: Dr Gallardo post discharge from [facility] Condition at time of discharge: Good Nebulizer Notify Physician If: Short of breath or wheezing Condition at time of discharge: Fair at [phone]. 2. Problems such as: Temp above 101.5 degrees You develop redness, excessive swelling of the incision, increasing pain or excessive foul smelling drainage. 3. If the office is closed, call [facility] at [phone] and have your Surgeon paged. Condition at [...] F (96.8 - 99.1) Temperature (Calculated Celsius) 36.99738 degrees C (36.0 - 37.3) Pulse Rate (adult) 82 bpm (60 - 100) Respiratory Rate 16 breaths/min (10 - 20) O2 Sat by Pulse Oximetry 100 % (90 - 100) Blood Pressure 133/62 mm Hg Height 5 ft 4 in Weight 200 lb Body Mass Index 34.0 kg/m^2 Results Name: ESEQUIEL NEAL Unit #: [id number] : 1930 Sex: F Loc / Svc: ED DOS: 06/22/14 Signed Report #: [id number] DIAGNOSTIC IMAGING REPORT TYPE OF EXAM: PELVIS [...] Encounters Encounter Location Date/Time Departed Emergency Room [facility] 06/22/14 12:11pm Recent Diagnosis
--- OUTSIDE RECORDS SUMMARY | 2016-10-25 20:37 | XMS REPORT | Continuity of Care Document ---
Author Author [facility]. Organization [facility] Address Unknown Phone Unavailable Allergies Active Description Code Type Severity Reaction Onset Reported/Identified Relationship to Patient Clinical Status Yes No Known Drug Allergy [id number] ND N/A N/A 04/22/2015 Confirmed or Verified [...] Procedures Code Description [place] [address] METABOLIC PANEL TOTAL CA SNEHA DAHL MD, BETSY R 08/26/2013 [id number] COMPLETE CBC, AUTOMATED SNEHA DAHL MD, BETSY Polanco 08/26/2013 87198 METABOLIC PANEL TOTAL CA SNEHA DAHL MD, BETSY R 12/25/2013 31646 LIPID PANEL SNEHA DAHL MD, BETSY Polanco 12/25/2013 [id number] COMPLETE CBC, AUTOMATED SNEHA DAHL MD, BETSY Polanco 12/25/2013 60259 EMERGENCY DEPT VISIT SANDRA CANDELARIA MD 04/22/2015 [id number] COMPREHEN METABOLIC PANEL SNEHA DAHL MD, BETSY Polanco 07/13/2015 [id number] ASSAY THYROID STIM HORMONE SNEHA DAHL MD, BETSY Polanco 07/13/2015 [id number] COMPLETE CBC, AUTOMATED SNEHA DAHL MD, BETSY Polanco 07/13/2015 Encounters ACCT No. Visit Date/Time Discharge Status Pt. Type Provider Facility Loc./Unit Complaint [id number] 07/14/2015 09:39:00 07/14/2015 09:39:00 DIS Outpatient SNEHA DAHL MD, [facility] [id number] 04/22/2015 19:13:00 04/22/2015 21:00:00 DIS Emergency BARI DIANE, [facility] ER [id number] 12/25/2013 13:30:00 12/25/2013 13:30:00 DIS Outpatient SNEHA DAHL MD, [facility] [id number] 08/26/2013 14:57:00 08/26/2013 14:57:00 [facility]
[2016-10-25 20:38] LABS: ANION GAP 14 MEQ/L (5-15); BUN/CREATININE RATIO 19 RATIO (6-26); CALCIUM 9.5 MG/DL (8.4-10.2); CHLORIDE 106 MEQ/L (98-107); CO2 - CARBON DIOXIDE 23 MEQ/L (22-30); CREATININE 0.8 MG/DL (0.7-1.2); GLOMERULAR FILTRATION RATE 68; GLUCOSE 133 MG/DL (65-110); POTASSIUM 4.4 MEQ/L (3.6-5); SODIUM 143 MEQ/L (134-144)
[2016-10-25 20:38] LABS: BLOOD, URINE TRACE-INTACT (NEGATIVE); COLOR,URINE YELLOW (YELLOW); LEUKOCYTE ESTERASE ,URINE 2+ (NEGATIVE); NITRITE,URINE POSITIVE (NEGATIVE); UROBILINOGEN,URINE 0.2 EU/DL (NORMAL)
[2016-10-25 20:44] LABS: BACTERIA,URINE 4+ (NEGATIVE); RBC,URINE 0-1 /HPF (0-3); WBC,URINE 20-30 /HPF (0-5)
[2016-10-25] MEDS ORDERED: GLUCOSE ORAL GEL 40% 37.5 G TUBE PO PRN (20:45)
[2016-10-25] MEDS ORDERED: DEXTROSE 50% SYRINGE 50ml (Eq. 1 AMP) IV PRN (20:45)
--- NOTE | 2016-10-25 20:45 | NUR ---
FAMILY FAMILY IN ROOM. CONVERSATION WITH PROVIDER REGARDING HER ADMISSION
--- NOTE | 2016-10-25 20:45 | NUR ---
REPORT CALLED REPORT TO KATHERINE ROLDAN
[2016-10-25] MEDS ORDERED: CEFTRIAXONE I.V. (ER USE ONLY) 1 G in NORMAL SALINE 100 ML IV ONE (21:00)
--- NOTE | 2016-10-25 21:08 | HPPDOC ---
MICHELLE BUSTAMANTE MD 10/25/16 2101: HPI - Adult Date DATE: 10/25/16 TIME: 20:56 General History of Present Illness This is an 86 y/o female w/ h/o CVA w/ Right sided residual weakness & DM type 2 who presents to ED at [facility] [place] after fall out of her motorized scooter today while feeding the chickens. She c/o right hip and leg pain and xray confirms femur fracture on the right. Patient received Fentanyl 100mcg per EMS and her pain is currently controlled. She was in her usual state of health prior to the fall out of the scooter. She denies LOC and head trauma and CT head in ER reported as negative. Patient noted to have WBCs on micro of her urine so started on Rocephin [address] Carmen of [facility] contacted and will see the patient in consult and requests admission to the Hospitalist service. CXR reported as normal and EKG NSR. Patient denies chest pain, soa, dyspnea, LAZO, n/v and no change in bowel/bladder function. Pain w/ movement of right LE. Patient to be admitted to the Hospitalist service for further evaluation and management. Past Medical History Past Medical History CVA with right sided weakness - especially minimal movement in RLL DM type 2 on Metformni Chronic low back pain on prn flexeril and Acetaminophen and/or Tramadol HLD on atorvastatin Osteoarthritis Current Medications Home Meds Reported Medications Cyclobenzaprine HCl (Cyclobenzaprine HCl) 5 Mg Tablet, 5 MG PO HS 10/25/16 Atorvastatin Calcium (Atorvastatin Calcium) 80 Mg Tablet, 80 MG PO HS 10/25/16 Acetaminophen (Acetaminophen) 650 Mg Tablet.er, 650 MG PO HS 10/25/16 Aspirin (Aspirin) 325 Mg Tablet, 325 MG PO DAILY 10/25/16 Citalopram Hydrobromide (Citalopram HBr) 20 Mg Tablet, 20 MG PO DAILY 10/25/16 Tramadol HCl (Tramadol HCl) 50 Mg Tablet, 100 MG PO DAILY Y for PAIN/AIR HUNGER 06/22/14 Metformin HCl (Metformin HCl) 500 Mg Tablet, 500 MG PO BIDWM 06/22/14 Allergies: Coded Allergies: No Known Allergies (Unverified , 10/25/16) Family History Family History: Patient's father w/ h/o CVA Social History Smoking Status: Never smoker Substance Use Type: does not use Alcohol Intake: none Marital Status: Household Members: spouse Social History Comments Patient has nursing aid that helps her w/ ADLs and has been participating recently in PT for her CVA right sided weakness Review of Systems All Other Systems All Other Systems: Reviewed (remainder of 10-point ROS Neg.) Physical Exam General General Nourishment: well nourished, well developed Height (Feet): 5 Height (Inches): 4.00 Telemetry Rhythm: Sinus Rhythm Eyes Brief: FOUND: EOMI, PERRL, NOT FOUND: scleral icterus ENMT Brief: FOUND: hearing intact, mucosa moist Neck Brief: FOUND: midline, NOT FOUND: JVD, nuchal rigidity Respiratory Brief: FOUND: clear all majano, equal bilaterally, symmetrical, NOT FOUND: rales, wheezes Cardiovascular (brief) Cardiac Brief: FOUND: pedal edema (trace distal LE edema), regular rate, regular rhythm Abdomen (brief) Abdominal Brief: FOUND: BS normo active x4, soft, NOT FOUND: distended, tender Integumentary (brief) Integumentary Brief: FOUND: dry, pink, warm Neurologic (brief) Comments Able to move her right arm, flex and extended at elbow and moves digits easily; some weakness w/ elevation and abduction of RUE, uses her left arm to lift her right arm high above her head; Minimal movement of the RLE Neurologic RN Documented GCS Eye Opening: (4)Spontaneous Verbal: (5)Oriented Motor: (6)Obeys Commands Total: Psychiatric (brief) FOUND: alert, attentive, normal affect, oriented Comments Very pleasant and appropriate Laboratory Laboratory Tests Test 10/25/16 20:16 10/25/16 20:34 White Blood Count 13.0T/MM3 Red Blood Count 4.00M/MM3 Hemoglobin 12.4GM/DL Hematocrit 38.1% Mean Corpuscular Volume 95.3UM3 Mean Corpuscular Hemoglobin 31.0UUG Mean Corpuscular Hemoglobin Concent 32.5GM/DL RDW Standard Deviation 44.0FL Platelet Count 185T/MM3 Mean Platelet Volume 12.1UM3 Immature Granulocyte % (Auto) 0.5% Neutrophils (%) (Auto) 76.6% Lymphocytes (%) (Auto) 14.6% Monocytes (%) (Auto) 5.8% Eosinophils (%) (Auto) 2.1% Basophils (%) (Auto) 0.4% Absolute Immature Granulocyte (auto 0.07T/MM3 Absolute Neutrophils (auto) 9.9T/MM3 Absolute Lymphocytes (auto) 1.9T/MM3 Absolute Monocytes (auto) 0.8T/MM3 Absolute Eosinophils (auto) 0.3T/MM3 Absolute Basophils (auto) 0.1T/MM3 Turbidity < 20 Sodium Level 143MEQ/L Potassium Level 4.4MEQ/L Chloride Level 106MEQ/L Carbon Dioxide Level 23MEQ/L Anion Gap 14MEQ/L Blood Urea Nitrogen 15.0MG/DL Creatinine 0.8MG/DL Glomerular Filtration Rate Calc 68 BUN/Creatinine Ratio 19RATIO Glucose Level 133MG/DL Calculated Osmolality 278MOSM/KG Calcium Level 9.5MG/DL Icterus Index < 2 Chemistry Specimen Hemolysis < 15 Urine Collection Type Cleancatch-midstream Urine Color Yellow Urine Turbidity Cloudy Urine pH 5.5 Urine Specific [place] 1.020 Urine Protein Negative Urine Glucose (UA) Negative Urine Ketones Negative Urine Blood Trace-intact Urine Nitrite Positive Urine Bilirubin Negative Urine Urobilinogen 0.2EU/DL Urine Leukocyte Esterase 2+ Urine RBC 0-1/HPF Urine WBC 20-30/HPF Urine Squamous Epithelial Cells 5-10 Urine Bacteria 4+ Urine Culture Indicated Cult reflexed &setup Assessment & Plan Assessment 1) Acute fall out of motorized scooter w/ Right Femur fracture and RLE pain POA 2) Acute UTI POA 3) DM Type 2 on oral med 4) CVA in the past w/ residual right sided weakness - uses motorized scooter to get around 5) Chronic Back Pain 6) HLD 7) Osteoarthritis Plan/Intensity of Service Admit to Hospitalist service Consult Ortho - done - Dr. Carmen notified and will see ;the patient Hold ASA Prn pain meds - both po and IV available depending on pain severity Continue home meds as otherwise indicated Diabetic Consistent carb diet NPO after midnight except for sips w/ meds NS IVFS at 75 cc/hour starting at midnight tonight Rocephin 1 gram q 24 hours with first dose given in the ED tonight Urine culture pending Correctional Scale insulin Supportive care SCDs DVT Prophylaxis: SCD'S Code Status Full Code Hospital Course Summary Disclaimer The hospital course summary below is not to be considered part of the above Progress Note. JUAN MIGUEL REAL MD 10/26/16 1016: Past Medical History Current Medications Home Meds Reported Medications Cyclobenzaprine HCl (Cyclobenzaprine HCl) 5 Mg Tablet, 5 MG PO HS 10/25/16 Atorvastatin Calcium (Atorvastatin Calcium) 80 Mg Tablet, 80 MG PO HS 10/25/16 Acetaminophen (Acetaminophen) 650 Mg Tablet.er, 650 MG PO HS 10/25/16 Aspirin (Aspirin) 325 Mg Tablet, 325 MG PO DAILY 10/25/16 Citalopram Hydrobromide (Citalopram HBr) 20 Mg Tablet, 20 MG PO DAILY 10/25/16 Tramadol HCl (Tramadol HCl) 50 Mg Tablet, 100 MG PO DAILY Y for PAIN/AIR HUNGER 06/22/14 Metformin HCl (Metformin HCl) 500 Mg Tablet, 500 MG PO BIDWM 06/22/14 Allergies: Coded Allergies: No Known Allergies (Unverified , 10/25/16) Assessment & Plan Assessment Dr. Bustamante's note reviewed. Mrs. Mueller interviewed and examined. CC: Right leg pain, fall HPI: Mrs. Mueller is an 86-year-old female who has right-sided weakness after an ischemic stroke in July 2015. She is nonambulatory as a result and uses a motorized scooter. Yesterday evening she fell from the scooter while returning to her home after feeding the chickens. Her indicates that it appeared the scooter went over an uneven surface prompting the patient to fall landing face down. He arrived immediately and the patient was conscious without confusion. No seizure activity was present. The patient describes immediate pain in her right hip and leg in addition to pain in her head. She was unable to get up and EMS was summoned bring her to the emergency room where fracture of the right proximal femur was identified. CT head was negative. She's been seen by Dr. Carmen and is scheduled for surgical stabilization later today. The patient is unable to transfer independently and a Albert lift is used at home. Patient denies any recent changes in weakness on the right side and has otherwise been doing well recently. Pyuria was noted in the emergency room but the patient has had no dysuria or urinary frequency/urgency. PH/SH/FH: agree with that recorded above with rotation the patient had no history of hyperlipidemia prior to stroke. She does have a history of hypertension, carotid stenosis, and sleep apnea. She has no prior surgeries. Echocardiogram in June 2016 revealed ejection fraction 70%. In addition to father having stroke multiple siblings have had strokes and multiple family members have tobacco-related cancers. She has one son who is a diabetic. Patient wants her to be her alternate decision-maker and after extensive discussion she confirmed DO NOT RESUSCITATE order as previously written. Primary care physician is Dr. Kendra Morales. ROS: 10 point review completed and is entirely negative other than chronic minor low back and knee pain due to arthritis. Patient is able to feed herself independently using her left arm. EXAM: General-120/67, 97.3, alert, soft-spoken, mild discomfort evident HEENT-PERRL, EOMI without nystagmus, conjugate gaze, facial structures symmetric , oropharynx clear, neck supple and without adenopathy Lungs-respirations nonlabored, clear lung majano anterior majano Cardiac-regular rhythm, S1-S2 Abd-obese, soft, nontender, diminished bowel sounds Ext-+1 nonpitting edema bilaterally Musculoskeletal-right leg slightly shortened and externally rotated relative to the left, palpation of the foot triggers spasm/pain Skin-superficial facial abrasions present, minor bruising on the right forearm without ulceration or skin tears Neuro-cranial nurse 2 through 12 intact, right flash ranging crewmember/biceps/triceps graded 4 minus/5 relative to 4+/5 on the left, right deltoid graded 2/5. Lower extremity power and not assessed; sensation intact to light touch 4 extremities Psych-calm, cooperative CT head with atrophy and evidence of past lacunar nurse infarct in the right caudate, old left frontal infarct with encephalomalacia. No acute pathology. X-rays of the pelvis and right femur reviewed demonstrating oblique proximal fracture. Chest x-ray without acute lung disease although heart is slightly enlarged with tortuous aorta. ECG reviewed by myself-sinus rhythm without acute ST-T wave changes. Laboratory data notable for drop in hemoglobin to 9.8 overnight, mild leukocytosis, and normal electrolytes. Blood sugar 139. Pyuria present. A/P: 1. Proximal femur fracture 2. UTI 3. History stroke with right hemiparesis 4. Acute blood loss anemia 5. Diabetes mellitus 6. Hypertension 7. Obstructive sleep apnea 8. Osteoarthritis Patient is medically stable to proceed with surgical stabilization of the fracture. Anticipate return to [facility] and rehabilitation where she recovered from stroke after acute rehabilitation. Continue CPAP, hold metformin initially, monitor hemoglobin as initial drop significant. Continue pain medications and IV fluids perioperatively. Continue Rocephin for UTI pending culture. Plan/Intensity of Service Multiple x-rays and EKG reviewed by myself. Prior records at [facility] reviewed. Laboratory data reviewed and discussed with orthopedics. High-risk medications in use. For surgical stabilization. MICHELLE BUSTAMANTE MD Oct 25, 2016 21:01 JUAN MIGUEL REAL MD Oct 26, 2016 10:16
[2016-10-25] MEDS ORDERED: HYDROMORPHONE 2mg/ml INJECTION IV ONE (21:30)
--- NOTE | 2016-10-25 21:45 | NUR ---
ADMISSION PT ADMITTED FROM ER TO RM 131 AT THIS TIME. PT IS ALERT AND ORIENTED X3, ABLE TO ANSWER ADMISSION QUESTIONS. SHE IS TRANSFERRED FROM CART TO BED WITH ASSIST OF 3. WILL CONTINUE TO MONITOR.
--- NOTE | 2016-10-25 21:45 | NUR ---
TRANSFER TO 131 PT IS TRANSFERRED TO ROOM 131 VIA CART. PT WAS GIVEN PAIN MEDS PRIOR TO TRANSFER TO AID IN PAIN CONTROL. PT TOLERATED WELL WITH TRANSFER.
[2016-10-25 21:48] VITALS: BP 159/77; PULSE 81; RESP 18; TEMP 99.7; O2SAT 97
[2016-10-25 21:49] VITALS: Ht 160 cm; Wt 106.2 kg
[2016-10-25] MEDS: ATORVASTATIN 40 MG TABLET PO SCH (22:00)
[2016-10-25] MEDS: NORMAL SALINE 1,000 ML IV SCH (23:04)
[2016-10-25] MEDS: CYCLOBENZAPRINE 5 MG TABLET PO SCH (23:05)
[2016-10-25] MEDS: HYDROCODONE/APAP 5 mg/325 mg TABLET PO PRN (23:05)
[2016-10-25 23:08] VITALS: PULSE 80; RESP 18; O2SAT 95
[2016-10-25 23:42] VITALS: BP 135/69; PULSE 93; TEMP 99.1; O2SAT 97
[2016-10-26] VITALS (25 sets, daily range): BP systolic 120–159; BP diastolic 58–75; PULSE 82–104; RESP 15–24; TEMP 97.3–99.2; O2SAT 91–100
[2016-10-26] MEDS: HYDROMORPHONE 2mg/ml INJECTION IV PRN ×3 (01:10→08:30)
[2016-10-26 04:51] LABS: BASOPHILS % (AUTO) 0.2 % (0-2); EOSINOPHILS # (AUTO) 0.2 T/MM3 (0-0.5); EOSINOPHILS % (AUTO) 1.2 % (0-4); HCT - HEMATOCRIT 30.7 % (36-46); HGB - HEMOGLOBIN 9.8 GM/DL (12-16); IMMATURE GRANULOCYTE # (AUTO) 0.02 T/MM3 (0.00-0.03); IMMATURE GRANULOCYTE % (AUTO) 0.2 % (0.0-0.5); LYMPHOCYTES # (AUTO) 2.2 T/MM3 (1-4.8); LYMPHOCYTES % (AUTO) 17.1 % (23-45); MEAN CORPUSCULAR HGB 30.7 UUG (26-34); MEAN CORPUSCULAR HGB CONC(MCHC 31.9 GM/DL (31-37); MEAN CORPUSCULAR VOLUME 96.2 UM3 (80-100); MEAN PLATELET VOLUME 12.3 UM3 (9.4-12.4); MONOCYTES # (AUTO) 0.7 T/MM3 (0-0.8); MONOCYTES % (AUTO) 5.1 % (0-9.0); NEUTROPHILS #(AUTO)-ABSOLUTE 9.7 T/MM3 (1.8-7.7); NEUTROPHILS % (AUTO) 76.2 % (33-66); RED BLOOD COUNT 3.19 M/MM3 (4.00-5.20); WBC - WHITE BLOOD COUNT 12.8 T/MM3 (4.5-11.0)
--- NOTE | 2016-10-26 05:05 | NUR ---
SHIFT SUMMARY PT HAS BEEN RESTING QUIETLY MOST OF THE NIGHT. SHE IS ALERT AND ORIENTED X2. SHE HAS NOT WANTED TO REPOSITION IN THE BED DUE TO THE PAIN IN THE LEG. VITALS HAVE BEEN STABLE. SHE HAS BEEN TAKING NORCO AND DILAUDID FOR PAIN AND TOLERATES WELL. SHE HAS DENIED NAUSEA. WILL CONTINUE TO MONITOR.
[2016-10-26 05:12] LABS: ANION GAP 12 MEQ/L (5-15); BUN/CREATININE RATIO 20 RATIO (6-26); CALCIUM 9.1 MG/DL (8.4-10.2); CHLORIDE 106 MEQ/L (98-107); CO2 - CARBON DIOXIDE 24 MEQ/L (22-30); CREATININE 0.7 MG/DL (0.7-1.2); GLOMERULAR FILTRATION RATE 80; GLUCOSE 139 MG/DL (65-110); POTASSIUM 4.3 MEQ/L (3.6-5); SODIUM 142 MEQ/L (134-144)
--- NOTE | 2016-10-26 07:40 | CONSPD ---
Consultation Info Date DATE: 10/26/16 TIME: 07:27 Attending Physician Tiffani Carmen MD Reason for Consultation: Right hip fracture. Impression/Recommendation Impression/Recommendation: (1) Subtrochanteric fracture of right femur Status: Acute Qualifiers: Encounter type: initial encounter Fracture type: closed Qualified Codes: S72.21XA - Displaced subtrochanteric fracture of right femur, initial encounter for closed fracture Recommendation: x Plan IM nailing with long gamma nail later today. Dr Carmen will discuss the surgical procedure, risk vs benefits, and possible complications with pt and family. Type and screen for surgery today. Labs look stable. Urine culture pending and pt on Rocephin. SCD's in place. Right hip marked for surgery. NPO for surgery today. Ortho HPI HPI Elements Location: FOUND hip (right) Injury: Yes (Fell off scooter 10/25/16 while feeding her chickens at home.) Pain: FOUND sharp Onset: Sudden Radiating: No Severity: FOUND severe (Severe when it happened. Pain is a "4" at this time.) Duration: FOUND 6-12 hours Previous Surgery: No Previous Injury: No Aggrevated by: FOUND all activity Associated Symptoms: FOUND other (Has a Right maritza paresis from a CVA in July 2016. She was not able to walk or transfer independently prior to this injury.) Treatments Tried: FOUND pain medications, FOUND immobilization X-ray Findings: FOUND other (Displaced sub trochanteric fx of the right proximal femur.) Recommendation: FOUND IM fixation (Long gamma nailing to the right femur.) Review of Systems Constitutional: REPORTS: weakness (from right CVA July 2016.), DENIES: chills, dizziness, fever Cardiovascular DENIES: chest pain Pulmonary Respiratory: DENIES: cough, dyspnea GI Upper Abdomen: DENIES: abdominal swelling, nausea, pain, vomiting General: dysuria, frequency, other (Reports that she thinks she has a UTI.) Musculoskeletal General: joint pain (Right knee is severely arthritic.), see HPI Integumentary Skin: DENIES: lesion, rash, sores Neurological General: paralysis/paresis (Right maritza paresis following CVA in July 2016.) Psychiatric Psychiatric: DENIES: depression, memory impairment Hematologic/Lymphatic DENIES: easy bruising All Other Systems Reviewed (remainder of 10-point ROS Neg.) Past Medical History Adult Problem List Updates CVA with right sided weakness - especially minimal movement in RLL DM type 2 on Metformni Chronic low back pain on prn flexeril and Acetaminophen and/or Tramadol HLD on atorvastatin Osteoarthritis Current Medications Acetaminophen (Acetaminophen) 650 Mg Tablet.er, 650 MG PO HS, (Reported) Last Taken: Unknown Dose on 10/24/161999 Aspirin (Aspirin) 325 Mg Tablet, 325 MG PO DAILY, (Reported) Last Taken: Unknown Dose on 10/25/16 0800 Atorvastatin Calcium (Atorvastatin Calcium) 80 Mg Tablet, 80 MG PO HS, (Reported) Last Taken: Unknown Dose on 10/24/161999 Citalopram Hydrobromide ( Citalopram HBr) 20 Mg Tablet, 20 MG PO DAILY, (Reported) Last Taken: Unknown Dose on 10/25/16 08 Cyclobenzaprine HCl ( Cyclobenzaprine HCl) 5 Mg Tablet, 5 MG PO HS, (Reported) Last Taken: Unknown Dose on 10/24/161999 Metformin HCl (Metformin HCl) 500 Mg Tablet, 500 MG PO BIDWM, (Reported) Last Taken: Unknown Dose on 10/25/16 08 Tramadol HCl (Tramadol HCl) 50 Mg Tablet, 100 MG PO DAILY PRN for PAIN/AIR HUNGER, (Reported) Last Taken: Unknown Dose on 10/25/16 0800 Allergies Allergies: Coded Allergies: No Known Allergies (Unverified , 10/25/16) Family History Family History: Patient's father w/ h/o CVA Vaccines FALL 2015 Social History Smoking Status: Never smoker Substance Use Type: does not use Alcohol Intake: none Marital Status: Household Members: spouse Advance Directives: Yes DPOA for Healthcare Only Physical Exam General General: well developed, no acute distress, obese Respiratory FOUND non-labored Cardiovascular FOUND pedal pulses intact Capillary Refill: <2 sec Abdomen Abdominal: FOUND soft, NOT FOUND distended, NOT FOUND tender Musculoskeletal Musculoskeletal Brief: FOUND: deformity (Right leg is externally rotated.), loss of motion, tenderness (At the right trochanter and right distal femur around the medial condyle of the knee.) Integumentary FOUND dry, FOUND pink, FOUND warm Neurologic FOUND intact to light touch, FOUND other (Has weakness of the right upper ext but can move it. She has limited movement of the right LE. Sensation intact.) Psychiatric FOUND alert, FOUND oriented Laboratory Laboratory Tests Test 10/25/16 20:16 10/25/16 20:34 10/25/16 22:32 10/26/16 04:03 White Blood Count 13.0T/MM3 12.8T/MM3 Red Blood Count 4.00M/MM3 3.19M/MM3 Hemoglobin 12.4GM/DL 9.8GM/DL Hematocrit 38.1% 30.7% Mean Corpuscular Volume 95.3UM3 96.2UM3 Mean Corpuscular Hemoglobin 31.0UUG 30.7UUG Mean Corpuscular Hemoglobin Concent 32.5GM/DL 31.9GM/DL RDW Standard Deviation 44.0FL 43.6FL Platelet Count 185T/MM3 189T/MM3 Mean Platelet Volume 12.1UM3 12.3UM3 Immature Granulocyte % (Auto) 0.5% 0.2% Neutrophils (%) (Auto) 76.6% 76.2% Lymphocytes (%) (Auto) 14.6% 17.1% Monocytes (%) (Auto) 5.8% 5.1% Eosinophils (%) (Auto) 2.1% 1.2% Basophils (%) (Auto) 0.4% 0.2% Absolute Immature Granulocyte (auto 0.07T/MM3 0.02T/MM3 Absolute Neutrophils (auto) 9.9T/MM3 9.7T/MM3 Absolute Lymphocytes (auto) 1.9T/MM3 2.2T/MM3 Absolute Monocytes (auto) 0.8T/MM3 0.7T/MM3 Absolute Eosinophils (auto) 0.3T/MM3 0.2T/MM3 Absolute Basophils (auto) 0.1T/MM3 0.0T/MM3 Turbidity < 20 < 20 Sodium Level 143MEQ/L 142MEQ/L Potassium Level 4.4MEQ/L 4.3MEQ/L Chloride Level 106MEQ/L 106MEQ/L Carbon Dioxide Level 23MEQ/L 24MEQ/L Anion Gap 14MEQ/L 12MEQ/L Blood Urea Nitrogen 15.0MG/DL 14.0MG/DL Creatinine 0.8MG/DL 0.7MG/DL Glomerular Filtration Rate Calc 68 80 BUN/Creatinine Ratio 19RATIO 20RATIO Glucose Level 133MG/DL 139MG/DL Calculated Osmolality 278MOSM/KG 276MOSM/KG Calcium Level 9.5MG/DL 9.1MG/DL Icterus Index < 2 < 2 Chemistry Specimen Hemolysis < 15 < 15 Urine Collection Type Cleancatch-midstream Urine Color Yellow Urine Turbidity Cloudy Urine pH 5.5 Urine Specific [place] 1.020 Urine Protein Negative Urine Glucose (UA) Negative Urine Ketones Negative Urine Blood Trace-intact Urine Nitrite Positive Urine Bilirubin Negative Urine Urobilinogen 0.2EU/DL Urine Leukocyte Esterase 2+ Urine RBC 0-1/HPF Urine WBC 20-30/HPF Urine Squamous Epithelial Cells 5-10 Urine Bacteria 4+ Urine Culture Indicated Cult reflexed &setup Glucometer 120mg/dL Radiology Radiology Severe OA of the right knee. Displaced, closed fx of the right proximal femur / sub trochanteric region. TOMMIE LEZAMA Oct 26, 2016 07:31
[2016-10-26] MEDS ORDERED: CEFAZOLIN 2 GM VIAL IV ONE (07:45)
[2016-10-26] MEDS ORDERED: NOZIN NASAL SWAB NS ONE ×3 (07:45→17:30)
[2016-10-26] MEDS ORDERED: CEFAZOLIN 1 GRAM INJECTION IV ONE (08:00)
[2016-10-26] MEDS: NOZIN NASAL SWAB NS SCH ×2 (08:11→16:12)
--- NOTE | 2016-10-26 08:13 | DI ---
Indication: ITS.REASON: right femur fracture PROCEDURE: AP and Lateral views of the Right Femur Encounter: Initial Comparison: None Findings: Diffuse bony demineralization. Displaced oblique fracture of the proximal femoral diaphysis. There is medial displacement of the distal fracture fragment by three fourths shaft width and apex anterior angulation. No additional acute fracture or dislocation seen. Severe degenerative change in the knee joint medially. Impression: Closed posttraumatic proximal femoral fracture. .
--- NOTE | 2016-10-26 08:14 | DI ---
Indication: ITS.REASON: fall, hit head PROCEDURE: CT HEAD W/O CONTRAST: Encounter: Initial Comparison: None Technique: Axial CT images through the head were performed without contrast. Iterative Reconstruction dose reducing technique was utilized. FINDINGS: Mild to moderate atrophy. Old lacunar infarct in the right caudate region. Old left frontal infarct with encephalomalacia. The ventricles are of normal size, shape, and configuration for the patient's age. There is no evidence of acute intracranial hemorrhage, midline displacement, or mass effect. There are scattered areas of low attenuation in the white matter which most likely represent changes of chronic microvascular ischemia. The CT attenuation of the brain parenchyma is otherwise normal within the cerebellum, brain stem, and cerebral hemispheres. The tympanic cavities and mastoid air cells are free of appreciable disease. There are no definite fractures of the skull base, calvarium, or visualized portion of the midface. IMPRESSION: No CT evidence of acute traumatic intracranial injury. There is a preliminary report by virtual radiologic. .
--- NOTE | 2016-10-26 08:23 | DI ---
Indication: ITS.REASON: femur fracture PROCEDURE: CHEST 1 VIEW: Encounter: Initial Comparison: None Findings: Mild senescent changes in the lungs without focal consolidation, pleural effusion or pneumothorax. Cardiac silhouette is upper limits of normal in size to mildly enlarged. Tortuous ectatic thoracic aorta. Pulmonary vascularity appears normal. Impression: No pneumonia or congestive failure. .
--- NOTE | 2016-10-26 08:24 | DI ---
Indication: ITS.REASON: fall, right hip pain PROCEDURE: PELVIS 1-2 VIEW DEDICATED PELV: Encounter: Initial Comparison: Right femur radiographs from the same time and pelvis x-ray dated June 22, 2014 Findings: Oblique proximal femoral fracture is better evaluated on the dedicated femoral radiographs. No additional acute fracture or dislocation seen. Diffuse bony demineralization. Degenerative change in the visualized lower lumbar spine. Impression: Closed posttraumatic right femoral fracture. .
--- NOTE | 2016-10-26 08:29 | DI ---
Indication: ITS.REASON: RECENT FALL PROCEDURE: KNEE RIGHT 2 VIEW: Encounter: Initial Comparison: None Findings: No acute fracture or dislocation. Severe medial compartment degenerative change with a [id number] appearance. Mild lateral subluxation of the tibia relative to the femur, presumably degenerative. Calcified loose bodies in the anterior joint space. Diffuse bony demineralization. Impression: No acute fracture. .
[2016-10-26 08:53] LABS: INR 1.19 (0.76-1.04)
[2016-10-26] MEDS ORDERED: MILK OF MAGNESIA 30 ML SUSP PO PRN ×2 (10:30→15:30)
--- NOTE | 2016-10-26 10:38 | NUR ---
CM CM IN TO VISIT WITH PT. SHE IS ALERT AND ORIENTED. HER SON, SPOUSE AND HOME CAREGIVERS ARE PRESENT. THEY REPORT THAT PT HAS HOSPITAL BED, SIT TO STAND LIFT AND JANETH SCOOTER AT HOME. SHE HAS RN AND ELEVATOR CONSTRUCTOR HELPER CAREGIVERS AT HOME. SHE USES [facility]. CM VISITS WITH THEM ABOUT SNF. THEY WOULD LIKE REFERRALS TO [facility], [facility], AND [facility]. THEY ARE MADE AWARE THAT IF PT IS AT PRIOR LEVEL OF FUNCTIONING AT TIME OF DC, SHE MAY NOT QUALIFY FOR SNF STAY. HOME WITH [facility] ARE ALSO DISCUSSED. IF THEY OPT FOR THIS ROUTE, PT WILL NEED DEVANG LIFT AND BSC. CM WILL CHECK ON THIS WELL. THEY ARE GIVEN CM CONTACT INFORMATION AND [facility] LETTER. Addendum: 10/26/16 at 1041 by KALEY MCCURDY RN Amended: Links added.
--- NOTE | 2016-10-26 10:43 | NUR ---
TO OR PT TRANSPORTED TO OR AT THIS TIME VIA BED AND ACCOMPANIED BY [facility] STAFF. INFORMED CONSENT OBTAINED PRIOR TO TRANSFER. PT COMPETENT TO SIGN, HOWEVER PHYSICALLY UNABLE DUE TO RECENT STROKE CAUSING RIGHT SIDED WEAKNESS. SIGNED INFORMED CONSENT FOR PT. VITAL SIGNS STABLE ON 2L OF O2 VIA NC. REDDY EMPTIED. FAMILY AND CAREGIVERS PRESENT UPON TRANSFER. WILL CONTINUE TO MONITOR CLOSELY.
--- NOTE | 2016-10-26 11:40 | ANESPREOP ---
Anesthesia Record Date and Time DATE: 10/26/16 TIME: 1124 Proposed Surgical Procedure Allergies: Coded Allergies: No Known Allergies (Unverified , 10/25/16) Ht/Wt/BMI Height: 5 ' 3.00 " Weight: 106.300 kg BMI: 41.6 kg/m2 Vital Signs Date Time Temp Pulse Resp B/P Pulse Ox O2 Delivery O2 Flow Rate FiO2 10/26/16 10:54 98.2 84 15 135/60 94 Room Air 10/25/16 23:42 2.00 Medications Inpatient Medications Current Medications Medications (Trade) Dose Ordered Sig/Aman Start Time Stop Time Status Last Admin Dose Admin Sodium Chloride (Normal Saline IV) 1,000 ml @ 75 mls/hr [id number] 10/25/16 20:24 10/25/16 23:04 75 MLS/HR Acetaminophen/ Hydrocodone Bitart ([place] 5/325) 1 tab Q6H PRN 10/25/16 20:30 10/25/16 23:05 1 TAB Hydromorphone HCl (Dilaudid) 0.5 mg Q3HR PRN 10/25/16 20:30 10/26/16 08:30 0.5 MG Ondansetron HCl (Zofran) 4 mg Q6H PRN 10/25/16 20:30 Docusate Sodium (Colace) 100 mg BID PRN 10/25/16 20:30 10/26/16 10:24 DC Acetaminophen (Tylenol Regular Strength) 650 mg Q6H PRN 10/25/16 20:30 Citalopram Hydrobromide (Celexa) 20 mg DAILY 10/26/16 09:00 Cyclobenzaprine HCl (Flexeril) 5 mg HS 10/25/16 22:00 10/25/16 23:05 5 MG Atorvastatin Calcium (LIPITOR 40 mg) 80 mg HS 10/25/16 22:00 Glucose (Glutose 15) 37.5 g PRN PRN 10/25/16 20:45 Dextrose (D50w) 25 ml PRN PRN 10/25/16 20:45 Insulin Aspart SS PRN 10/25/16 20:45 Ceftriaxone Sodium/Sodium Chloride (Rocephin/NS) 100 ml @ 200 mls/hr Q24H 10/26/16 21:00 Multi-Ingredient Antiseptic (Nozin Nasal Swab) 1 each Q8HR 10/26/16 09:00 Polyethylene Glycol (Miralax) 17 g DAILY 10/27/16 09:00 Magnesium Hydroxide (Mom) 30 ml DAILY PRN 10/26/16 10:30 Senna/Docusate Sodium (Senna Plus) 2 tab BID 10/26/16 21:00 Acetaminophen (Acetaminophen) 650 Mg Tablet.er, 650 MG PO HS, (Reported) Last Taken: on 10/24/161999 Aspirin (Aspirin) 325 Mg Tablet, 325 MG PO DAILY, (Reported) Last Taken: on 10/25/16 0800 Atorvastatin Calcium (Atorvastatin Calcium) 80 Mg Tablet, 80 MG PO HS, (Reported) Last Taken: on 10/24/161999 Citalopram Hydrobromide (Citalopram HBr) 20 Mg Tablet, 20 MG PO DAILY, (Reported) Last Taken: on 10/25/16 08 Cyclobenzaprine HCl (Cyclobenzaprine HCl) 5 Mg Tablet, 5 MG PO HS, (Reported) Last Taken: on 10/24/161999 Metformin HCl (Metformin HCl) 500 Mg Tablet, 500 MG PO BIDWM, (Reported) Last Taken: on 10/25/16 08 Tramadol HCl (Tramadol HCl) 50 Mg Tablet, 100 MG PO DAILY PRN for PAIN/AIR HUNGER, (Reported) Last Taken: on 10/25/16 0800 Currently on Beta Moreno: No Medical/Surgical History Anesthesia PMH: Reports: *Diabetes, Arthritis, CVA/Stroke/TIA (AFFECTED RIGHT SIDE Jul 2015), Reflux, Sleep Apnea, Denies: *Hypertension, *NM, Asthma, Blood Transfusion Reac, CHF, COPD, Cancer, Seizures Smoking Status: Never smoker Use Chewing Tobacco?: No Substance Use Type: does not use Alcohol Intake: none Past Surgical History Orthopedic Surgeries: Yes - ACL REPAIR RIGHT KNEE Abdominal Surgeries: No Genitourinary Surgeries: No Cardiac Surgeries: No Endocrine Surgeries: No Reproductive Surgeries: No Neurological Surgeries: No Ear Surgeries: No Nose Surgeries: No Throat Surgeries: No Other Surgeries: Yes - LASER ON RUPTURED DISC Anesthesia Adverse Reactions: FOUND none Family Hx of Anesthesia Advers: none Hx of Motion Sickness: No Pertinent Findings Laboratory Tests 10/26/16 04:03 Test 10/26/16 08:15 Prothromb Time International Ratio 1.19 (0.76-1.04) EKG Rhythm: Sinus Rhythm Physical Exam Respiratory: Lungs clear Cardiovascular: FOUND Regular rate, rhythm Airway Assessment Mallampati Score: II TMD: 3 Fingerbreadths Neck Extension: Fair Overall Assessment: May Be Diff Mask Vent., May Be Diff Intubation ASA: 3 Plan Anesthesia Plan: TIVA Discussion Discussed risks/options/alternatives of anesthesia and questions answered. Patient consents. Nursing pain assessment noted. Present: Family Member, Spouse Attestation Statement Prior to the delivery of any anesthetic medication, I examined the patient, developed the plan, obtained the patient's consent and discussed the risk and benefits of the procedure with the patient/guardian. SAÚL HILLIARD CRNA Oct 26, 2016 11:40
[2016-10-26] MEDS ORDERED: PROPOFOL 500mg 50 ML IV ONE (11:44)
[2016-10-26] MEDS ORDERED: MIDAZOLAM 2mg/2ml INJECTION ONE (11:46)
[2016-10-26] MEDS ORDERED: FENTANYL 100mcg/2ml INJECTION ONE ×2 (11:46→14:10)
[2016-10-26] MEDS ORDERED: KETAMINE 500mg/10ml INJECTION ONE (11:46)
[2016-10-26] MEDS ORDERED: PHENYLEPHRINE 10mg/ml INJECTION ONE (12:45)
[2016-10-26] MEDS ORDERED: SALINE FLUSH 10ml SYRINGE ONE (12:45)
[2016-10-26] MEDS ORDERED: CEFAZOLIN 1 GRAM INJECTION ONE (12:48)
[2016-10-26] MEDS ORDERED: BUPIVACAINE 0.25% (2.5mg/ml) INJ 30ml SDV ONE (12:50)
[2016-10-26] MEDS ORDERED: ONDANSETRON 4mg/2ml INJECTION ONE (12:53)
[2016-10-26] MEDS ORDERED: DEXAMETHASONE 4mg/ml - 1ml INJECTION ONE (12:53)
[2016-10-26] MEDS ORDERED: CEFAZOLIN 1 G in NORMAL SALINE 100 ML IV ONE (13:30)
[2016-10-26] MEDS ORDERED: VASOPRESSIN 20 UNIT/ML ONE (13:42)
--- NOTE | 2016-10-26 14:32 | NUR ---
CM PER NITHYA MONSALVE AT [facility], THEY CAN ACCEPT PT FOR SNF UPON DC.
[2016-10-26] MEDS ORDERED: FENTANYL 100mcg/2ml INJECTION IV PRN (15:00)
[2016-10-26] MEDS ORDERED: ONDANSETRON 4mg/2ml INJECTION IV PRN (15:00)
--- NOTE | 2016-10-26 15:40 | ANESPO ---
Post-Op Note Date 10/26/16 Time: 15:40 Status Pt Participated in Evaluation: Pt participated in person Vital Signs Date Time Temp Pulse Resp B/P Pulse Ox O2 Delivery O2 Flow Rate FiO2 10/26/16 15:20 97.3 88 24 139/60 100 Mask 6.00 Respiratory Function: Airway patent, Regular respirations Cardiovascular Function: Regular pulse Mental Status: Alert/oriented Pain Level Intensity: 0 Unable to Assess Pain Due To: Pt Sleeping Hydration: IV infusing Complications during Recovery None apparent Follow-Up Instructions Instructions Per Surgeon AJITH STEPHENS CRNA Oct 26, 2016 15:40
--- NOTE | 2016-10-26 16:00 | NUR ---
RETURN TO UNIT ARRIVES TO ROOM 131 VIA HOSPITAL BED POST SURGERY. PATIENT ORIENTED TO PERSON ONLY. O2 3L PER NC. IVF INFUSING. REDDY TO DEPENDENT DRAINAGE BAG. FAMILY AT BEDSIDE. BED IN LOWEST POSITION, CALL LIGHT WITHIN REACH, SIDE RAILS UP X2.
[2016-10-26] MEDS: NORMAL SALINE 1,000 ML IV SCH ×2 (16:13→23:04)
--- NOTE | 2016-10-26 16:17 | DI ---
Indication: ITS.REASON: FX PROCEDURE: RF FEMUR RIGHT: Encounter: Initial Comparison: Femur radiographs from yesterday Findings: Six fluoroscopic spot images are submitted for interpretation. Images show open reduction and internal fixation of the right femoral fracture with placement of an intramedullary nail, compression screw and two distal interlocking screws. Cerclage wires are also noted. Impression: Fluoroscopy as above. Fluoroscopy time is 278.3 seconds. Fluoroscopy dose is 8200 mRad. .
--- NOTE | 2016-10-26 16:47 | NUR ---
CM [facility] WILL HAVE SEMIPRIVATE ROOM AVAILABLE ON SUNDAY FOR SNF.
--- NOTE | 2016-10-26 17:22 | PDOPERATE ---
Operative Report Date of Operation 10/26/16 Side: Right Preoperative Diagnosis: other (right subtrochanteric femur fracture, comminuted ) Postoperative Diagnosis Same as preoperative diagnosis. Operation/Procedure: other (intramedullary fixation with cerclage wires of subtrochanteric femur fracture) Surgeon Fransisco Carmen MD Field Representative/Health Education ROBERTO Ortiz Complications None. Anesthesia Plan: GETA Estimated Blood Loss See Anesthesia Record. Fluids Please See Anesthesia Record. Description of Operation Ms. Mueller and her right hip were identified and marked in the the preoperative holding area. She was then brought back to the operating suite and proper anesthesia was administered. She was then positioned supine on the fracture table. Both feet were placed into well-padded traction boots. The right leg was placed into traction and the left leg was placed into extension without traction. Timeout was performed with all operating room personnel. Fluoroscopic imaging confirmed reduction using a crutch to help reduce deformity in the sagittal plane. The surgery was made much more difficult due to the patient's body habitus. Next A 5 cm incision was made superior to the greater trochanter and guide sujit was then placed through an awl was used to open the proximal femur the long guide sujit was passed down past the fracture site and overreamed to a 14-1/2. I then selected 360 mm 13 mm gamma nail and placed it over the guide sujit. As the nail was being placed there was increased displacement at the fracture site and for this reason I did choose to place cerclage wires. Lateral incision was made approximately 10 cm in length and blunt dissection was carried down to the femur. 2 cerclage wires were then placed around the fracture site in both held temporarily in place as I finished placing the lag screw into a center center location into the femoral head. I then tightened and clamped both cerclage wires. I was happy with the reduction. I then placed 2 interlocking screws in the distal holes using perfect hoopa technique. All wounds were thoroughly irrigated before being closed in layers. Patient did have a fair amount of bleeding from the fracture site during placement of cerclage wires. This H&H will be checked in the recovery room. Patient was taken to recovery room in the care of anesthesia at the conclusion of surgery. SANDRA CAMREN MD Oct 26, 2016 17:22
[2016-10-26] MEDS: HYDROCODONE/APAP 5 mg/325 mg TABLET PO PRN (18:12)
[2016-10-26 18:36] LABS: HCT - HEMATOCRIT 30.8 % (36-46); HGB - HEMOGLOBIN 9.6 GM/DL (12-16); MEAN CORPUSCULAR HGB 30.8 UUG (26-34); MEAN CORPUSCULAR HGB CONC(MCHC 31.2 GM/DL (31-37); MEAN CORPUSCULAR VOLUME 98.7 UM3 (80-100); MEAN PLATELET VOLUME 12.4 UM3 (9.4-12.4); RED BLOOD COUNT 3.12 M/MM3 (4.00-5.20); WBC - WHITE BLOOD COUNT 20.6 T/MM3 (4.5-11.0)
[2016-10-26] MEDS: INSULIN ASPART 100 UNIT/ML SQ PRN (21:06)
[2016-10-26] MEDS: ENOXAPARIN 40 MG/0.4 ML INJECTION SQ SCH (21:06)
[2016-10-26] MEDS: CEFAZOLIN 2 G in NORMAL SALINE 100 ML IV SCH (21:07)
[2016-10-26] MEDS: ATORVASTATIN 40 MG TABLET PO SCH (21:07)
[2016-10-26] MEDS: CYCLOBENZAPRINE 5 MG TABLET PO SCH (21:07)
[2016-10-26] MEDS: SENNA + DOCUSATE TAB PO SCH (21:08)
[2016-10-26] MEDS: CEFTRIAXONE 1 G in NORMAL SALINE 100 ML IV SCH (21:53)
--- NOTE | 2016-10-26 22:25 | PNPDOC ---
Progress Note Date 10/26/16 Please see addendum to H&P for preoperative clearance and examination the morning of 10/26. Patient cleared for surgery. JUAN MIGUEL REAL MD Oct 26, 2016 22:25
[2016-10-27] VITALS (7 sets, daily range): BP systolic 117–146; BP diastolic 41–72; PULSE 82–98; RESP 16–20; TEMP 97.2–98.2; O2SAT 90–97
[2016-10-27] MEDS: NOZIN NASAL SWAB NS SCH ×4 (00:29→17:57)
[2016-10-27] MEDS: HYDROCODONE/APAP 5 mg/325 mg TABLET PO PRN ×3 (02:30→18:52)
[2016-10-27] MEDS: CEFAZOLIN 2 G in NORMAL SALINE 100 ML IV SCH (04:51)
[2016-10-27 05:21] LABS: BASOPHILS % (AUTO) 0.1 % (0-2); HCT - HEMATOCRIT 23.4 % (36-46); HGB - HEMOGLOBIN 7.4 GM/DL (12-16); IMMATURE GRANULOCYTE # (AUTO) 0.04 T/MM3 (0.00-0.03); IMMATURE GRANULOCYTE % (AUTO) 0.3 % (0.0-0.5); LYMPHOCYTES # (AUTO) 1.2 T/MM3 (1-4.8); LYMPHOCYTES % (AUTO) 10.7 % (23-45); MEAN CORPUSCULAR HGB 31.1 UUG (26-34); MEAN CORPUSCULAR HGB CONC(MCHC 31.6 GM/DL (31-37); MEAN CORPUSCULAR VOLUME 98.3 UM3 (80-100); MONOCYTES # (AUTO) 1.1 T/MM3 (0-0.8); MONOCYTES % (AUTO) 9.6 % (0-9.0); NEUTROPHILS #(AUTO)-ABSOLUTE 9.2 T/MM3 (1.8-7.7); NEUTROPHILS % (AUTO) 79.3 % (33-66); RED BLOOD COUNT 2.38 M/MM3 (4.00-5.20); WBC - WHITE BLOOD COUNT 11.6 T/MM3 (4.5-11.0)
[2016-10-27 05:32] LABS: ALBUMIN 2.9 G/DL (3.5-5.0); ALKALINE PHOSPHATASE 54 U/L (38-126); ALT (SGPT) 33 U/L (9-52); ANION GAP 11 MEQ/L (5-15); AST (SGOT) 20 U/L (14-36); BUN/CREATININE RATIO 15 RATIO (6-26); CALCIUM 8.9 MG/DL (8.4-10.2); CHLORIDE 108 MEQ/L (98-107); CO2 - CARBON DIOXIDE 24 MEQ/L (22-30); CREATININE 0.8 MG/DL (0.7-1.2); GLOMERULAR FILTRATION RATE 68; GLUCOSE 172 MG/DL (65-110); POTASSIUM 4.4 MEQ/L (3.6-5); SODIUM 143 MEQ/L (134-144); TOTAL PROTEIN 5.7 G/DL (6.3-8.2)
[2016-10-27] MEDS: NORMAL SALINE 1,000 ML IV SCH ×2 (06:16→17:57)
--- NOTE | 2016-10-27 07:47 | NUR ---
SHIFT SUMMARY SHE IS ALERT AND ORIENTED X2. VSS STABLE ON 1L 02 NC. SNORES/SLEEP APNEA. TOLERATES REPOSITIONING WELL. SHE HAS TAKEN 1 NORCO FOR PAIN THIS SHIFT. SHE HAS DENIED NAUSEA. VERY PLEASANT. SLEPT WELL THROUGHOUT THE NIGHT. SCDS ON. DRESSING CDI. WILL CONTINUE TO MONITOR.
[2016-10-27] MEDS: INSULIN ASPART 100 UNIT/ML SQ PRN ×4 (08:05→20:57)
--- NOTE | 2016-10-27 08:22 | PDORTHOPN ---
Subjective Date DATE: 10/27/16 TIME: 08:10 Subjective Alycia denies much pain this AM. She has not been out of bed or worked with PT yet. Alycia knew me when I walked in this AM. She is alert and oriented. She had some dizziness when getting up prior to this injury, but has not felt that way since surgery. No CP, cough or SOA. Objective Vital Signs Vital signs Vital Signs 10/26/16 10/26/16 10/26/16 10/26/16 20:13 20:56 21:20 23:02 Temp 97.6 98.7 Pulse 96 96 104 Resp 18 18 16 B/P 134/64 129/69 Pulse Ox 95 95 O2 Delivery Nasal Cannula Nasal Cannula Nasal Cannula O2 Flow Rate 1.00 1.00 1.00 10/27/16 10/27/16 04:00 04:03 Temp 97.9 97.9 Pulse 87 87 Resp 16 16 B/P 119/57 119/57 Pulse Ox 93 93 O2 Delivery Nasal Cannula Nasal Cannula O2 Flow Rate 1.00 1.00 Height (Feet): 5 Height (Inches): 3.00 Weight (Kilograms): 106.300 General General Appearance: Alert, Orientated x 2, Overweight, No Acute Distress Respiratory (Brief) Respiratory Brief: FOUND: non-labored Cardiovascular (Brief) Cardiac: FOUND: calf easily compressible, calf soft, nontender, pedal pulses intact Abdomen (Brief) Abdominal Brief: FOUND: non-tender, soft Surgical Site Incision: FOUND: dressing intact, no drainage Integumentary (Brief) Integumentary Brief: FOUND dry, FOUND pink, FOUND warm Neurologic (Brief) Neurological Brief: FOUND: deficit present (From her previous right-sided CVA in Jul 2016. Findings are stable compared to her pre op exam.) Psychiatric (Brief) Psychiatric Brief: FOUND: alert, no acute distress, oriented Laboratory Laboratory Laboratory Tests 10/25/16 20:16 10/26/16 04:03 10/26/16 18:23 10/27/16 04:24 Laboratory Tests 10/25/16 20:16 10/26/16 04:03 10/27/16 04:24 Microbiology Microbiology Microbiology Date/Time Source Procedure Growth Status 10/25/16 20:45 Urine, Clean Catch-Midstream Urine Culture - Preliminary Gram Negative Shailesh Resulted Assessment & Plan Problems: (1) Subtrochanteric fracture of right femur Status: Acute Qualifiers: Encounter type: initial encounter Fracture type: closed Qualified Codes: S72.21XA - Displaced subtrochanteric fracture of right femur, initial encounter for closed fracture Assessment & Plan: x S/P IM nailing with long gamma nail 10/26/16. SCD's & Lovenox for DVT coverage. Hgb 7.4 this morning. Urine C&S pending (gm neg rods on culture) on Rocephin. Begin mobilization / txfrs as tolerated. Hospitalist to manage medically. Hospital Course Summary Disclaimer The visit summary below is not to be considered part of the above Progress Note. TOMMIE LEZAMA Oct 27, 2016 08:17
[2016-10-27] MEDS: POLYETHYL.GLYCOL 3350 PACKET 17gm PO SCH (09:37)
[2016-10-27] MEDS: SENNA + DOCUSATE TAB PO SCH ×2 (09:38→20:58)
--- NOTE | 2016-10-27 09:38 | NUR ---
[facility] CM SPOKE WITH PT SON AND SPOUSE. THEY ARE MADE AWARE THAT [facility] HAS ACCEPTED PT FOR SNF. THEY ARE MADE AWARE THAT [facility] WILL HAVE SEMI-PRIVATE ROOM. THEY ARE NOT INTERESTED IN THAT. THEY REQUEST REFERRAL TO [facility]. CM SHOWS SON [facility]ANG LIFT. HE REQUESTS THAT CM CHECK ON RENTAL OPTIONS FROM [facility].
[2016-10-27] MEDS ORDERED: NORMAL SALINE 500 ML IV SCH (12:01)
[2016-10-27] MEDS ORDERED: FUROSEMIDE 20 MG/2 ML INJECTION IV ONE (12:15)
[2016-10-27] MEDS: CYCLOBENZAPRINE 5 MG TABLET PO PRN (12:43)
[2016-10-27] MEDS: ASPIRIN 325 MG TABLET PO SCH (13:48)
--- NOTE | 2016-10-27 13:55 | PNPDOC ---
Subjective Date DATE: 10/27/16 TIME: 13:39 Subjective Mrs. Mueller was seen with her at the bedside this morning. She complains of pain "everywhere". She continues to have some spasms in her right leg and complains of pain in the left anterolateral ribs with inspiration prompting her question whether she could have a rib fracture. She denied dyspnea or palpitations. She's had no nausea or vomiting and was able to eat breakfast this morning without difficulty. She sat on the edge of the bed with therapy earlier today. Approximate 700 cc blood loss was reported surgically. Objective Vital Signs Vital signs Vital Signs Date Time Temp Pulse Resp B/P Pulse Ox O2 Delivery O2 Flow Rate FiO2 10/27/16 12:40 120/53 10/27/16 12:39 97.2 82 16 97 Nasal Cannula 1.00 I/O 3668/2325 EXAM General-NAD, alert, pleasant HEENT-conjunctiva clear, conjugate gaze Lungs-respirations nonlabored with good airflow, crackles at the left base posteriorly Cardiac-regular rhythm, S1-S2, 2/6 systolic murmur right upper sternal border Abd-obese, soft, nontender, diminished bowel sounds Ext-nonpitting edema bilateral lower extremities, palpation of right foot triggers muscle spasm Neuro-sensation intact bilateral lower extremities, patient is able to wiggle her right toes minimally (known right hemiparesis), improved power left plantar flexion/dorsiflexion Telemetry Rhythm: Sinus Rhythm Height (Feet): 5 Height (Inches): 3.00 Weight (Kilograms): 106.300 Laboratory Laboratory Laboratory Tests 10/25/16 20:16 10/26/16 04:03 10/27/16 04:24 Laboratory Tests 10/25/16 20:16 10/26/16 04:03 10/26/16 18:23 10/27/16 04:24 Blood sugars 168-316 in the past 24 hours Liver enzymes within normal limits, albumin 2.9 Microbiology Microbiology Microbiology Date/Time Source Procedure Growth Status 10/25/16 20:45 Urine, Clean Catch-Midstream Urine Culture - Preliminary >100,000 Escherichia Coli 50,000-100-000 Gram Positive Cocci Resulted Assessment & Plan Assessment 1. Proximal femur fracture 2. UTI 3. History stroke with right hemiparesis 4. Acute blood loss anemia 5. Diabetes mellitus 6. Hypertension 7. Obstructive sleep apnea 8. Osteoarthritis 9. Right lower extremity muscle spasms Hemoglobin has dropped from 12.4 to 7.4 in approximately 36 hours with further drop anticipated in the immediate postoperative time. No clear symptoms in the absence of activities however given anticipated further drop in history cerebrovascular disease I believe it safer to proceed with transfusion now than wait till patient is compromised. One unit of packed red blood cells will be given today with 20 mg of Lasix in conjunction with blood. Flexeril added when necessary for muscle spasms. Continue to monitor hemoglobin. Sensitivities pending for gram-negative identified in urine and further identification of gram-positive organism pending. Continue Rocephin pending additional information. Blood pressure well-controlled. Blood sugars erratic in the immediate postoperative time. Resume metformin tomorrow. Resume aspirin for stroke prophylaxis. Plan/Intensity of Service Laboratory data reviewed, discussed with Dr. Carmen, nursing, and case management. DVT Prophylaxis: Lovenox Code Status Do Not Resuscitate Hospital Course Summary Disclaimer The hospital course summary below is not to be considered part of the above Progress Note. JUAN MIGUEL REAL MD Oct 27, 2016 13:42
--- NOTE | 2016-10-27 14:37 | NUR ---
CM PT HAS BEEN ACCEPTED TO SNF.
--- NOTE | 2016-10-27 14:43 | NUR ---
CM PER FAMILY REQUEST, REFERRAL IS MADE TO [facility] AT [facility].
--- NOTE | 2016-10-27 15:57 | NUR ---
[facility] PT IS ACCEPTED FOR SNF AT [facility].
[2016-10-27 17:15] LABS: HGB - HEMOGLOBIN 8.9 GM/DL (12-16)
--- NOTE | 2016-10-27 19:22 | NUR ---
PROGRESS NOTE PT IS ALERT AND ORIENTED X3. VITAL SIGNS STABLE, ON 1L O2 PER NC. THE PT HAS TOLERATED HER DIET WELL, NO NAUSEA. THE PT IS RESTING IN BED, AND WAS JUST GIVEN A NORCO 5/325MG PRIOR TO SHIFT CHANGE FOR INCREASED PAIN. PT HAS DANGLED HER LEGS OFF THE EDGE OF THE BED X1 THIS SHIFT WITH A X3 ASSIST. PT HAS PATENT REDDY CATHETER, DRAINING ADEQUATE URINE OUTPUT. 1 UNIT OF BLOOD ADMINISTERED THIS SHIFT, PT TOLERATED WELL. NO CONCERNS NOTED.
[2016-10-27] MEDS: ENOXAPARIN 40 MG/0.4 ML INJECTION SQ SCH (20:57)
[2016-10-27] MEDS: ATORVASTATIN 40 MG TABLET PO SCH (20:58)
[2016-10-27] MEDS: CYCLOBENZAPRINE 5 MG TABLET PO SCH (20:58)
[2016-10-27] MEDS: CEFTRIAXONE 1 G in NORMAL SALINE 100 ML IV SCH (20:59)
--- NOTE | 2016-10-27 22:53 | NUR ---
PAIN PT RATES PAIN AT A 9/10 ON RIGHT LEG, "LIKE CRAMPING". PT GIVEN TYLENOL 350MG 2 TABS PO PER PT REQUEST. WILL CONTINUE TO MONITOR.
[2016-10-28] VITALS (9 sets, daily range): BP systolic 136–152; BP diastolic 57–71; PULSE 88–97; RESP 14–22; TEMP 97.3–99.3; O2SAT 90–93
[2016-10-28] MEDS: NOZIN NASAL SWAB NS SCH ×3 (01:11→18:49)
--- NOTE | 2016-10-28 01:38 | NUR ---
Chart Check 24 hour chart check completed
[2016-10-28] MEDS: HYDROCODONE/APAP 5 mg/325 mg TABLET PO PRN ×3 (02:19→15:44)
--- NOTE | 2016-10-28 06:21 | NUR ---
SHIFT SUMMARY PT IS ALERT AND ORIENTED X 3. PT HAS SLEPT SOUNDLY THROUGHOUT THE NIGHT. PT GIVEN NORCO AND TYLENOL FOR PAIN, SEE EMAR FOR TIMES. 1800 ADA DIET. REDDY CATHETER WITH ADEQUATE OUTPUT. TURNED Q2H. NS RUNNING @ 75ML/HR IN LEFT WRIST. VSS, ON RA. CONTINUOUS OXIMETRY. DRESSING TO RIGHT HIP C/D/I, ICE PACK ON CONTINUOUSLY. BILAT SCD'S. BED LOCKED AND LOW, BED ALARM ON. CALL LIGHT WITHIN REACH. WILL CONTINUE TO MONITOR.
[2016-10-28] MEDS: NORMAL SALINE 1,000 ML IV SCH (06:55)
[2016-10-28] MEDS: INSULIN ASPART 100 UNIT/ML SQ PRN ×4 (06:55→21:30)
[2016-10-28] MEDS: CYCLOBENZAPRINE 5 MG TABLET PO PRN ×2 (06:55→14:51)
[2016-10-28] MEDS: ASPIRIN 325 MG TABLET PO SCH (08:56)
[2016-10-28] MEDS: POLYETHYL.GLYCOL 3350 PACKET 17gm PO SCH (08:56)
[2016-10-28] MEDS: SENNA + DOCUSATE TAB PO SCH ×2 (08:56→21:23)
[2016-10-28] MEDS ORDERED: BISACODYL 10 MG SUPPOSITORY RECTALLY ONE (10:15)
--- NOTE | 2016-10-28 10:23 | PNPDOC ---
Subjective Date DATE: 10/28/16 TIME: 10:11 Subjective Alycia is seen today in follow up. She somewhat anxious "don't feel well". No BM- is anxious re: not having a bowel movement. Reports ongoing pain concerns. Denies any other acute concerns- d/w pt and . Objective Vital Signs Vital signs Vital Signs Date Time Temp Pulse Resp B/P Pulse Ox O2 Delivery O2 Flow Rate FiO2 10/28/16 09:52 88 16 10/28/16 08:38 98.0 152/71 93 Room Air 10/27/16 12:39 1.00 Telemetry Rhythm: Sinus Rhythm Height (Feet): 5 Height (Inches): 3.00 Weight (Kilograms): 106.300 General General Appearance: Alert, Orientated x 3, Cooperative, No Acute Distress Eyes (Brief) Eyes: FOUND: EOMI, PERRL, NOT FOUND: foreign body, scleral icterus Neck (Brief) Neck: FOUND: midline, NOT FOUND: JVD, nuchal rigidity, spasm Comments Right jugular venous pulsation. Respiratory (Brief) Respiratory: FOUND: clear all majano, equal bilaterally, symmetrical, NOT FOUND : rales, wheezes Comments Diminished in bases. No crackles anteriorly. Cardiovascular (Brief) Cardiac: FOUND: pedal edema (Trace. ), regular rate, regular rhythm, NOT FOUND : murmur Abdomen (Brief) Abdominal: FOUND: BS normo active x4 (BS are hyperactive. ), soft, NOT FOUND: distended, tender (Brief) Comments Pruitt- clear yellow. Extremities (Brief) Extremity : Side: Bilateral Extremity Finding: FOUND: edema (Trace) Musculoskeletal (Brief) Musculoskeletal: FOUND: loss of motion, tenderness Integumentary (Brief) Integumentary: FOUND: dry, warm Psychiatric (Brief) Psychiatric: FOUND: alert, attentive, oriented Laboratory Laboratory Laboratory Tests 10/27/16 04:24 Laboratory Tests 10/26/16 18:23 10/27/16 04:24 10/27/16 16:56 Microbiology Microbiology Microbiology Date/Time Source Procedure Growth Status 10/25/16 20:45 Urine, Clean Catch-Midstream Urine Culture - Final Escherichia Coli Alpha-Hemolytic Streptococcus Complete Assessment & Plan Problems: (1) Subtrochanteric fracture of right femur Status: Acute Qualifiers: Encounter type: initial encounter Fracture type: closed Qualified Codes: S72.21XA - Displaced subtrochanteric fracture of right femur, initial encounter for closed fracture (2) Fluid overload Status: Acute Qualifiers: Hypervolemia type: other Qualified Codes: E87.79 - Other fluid overload (3) Constipation Status: Acute Qualifiers: Constipation type: unspecified constipation type Qualified Codes: K59.00 - Constipation, unspecified (4) Anxiety and depression Status: Chronic (5) Hypertension Status: Acute (6) Fall Status: Acute Qualifiers: Encounter type: initial encounter Qualified Codes: W19.XXXA - Unspecified fall, initial encounter (7) CVA, old, hemiparesis Status: Chronic (8) DM type 2 (diabetes mellitus, type 2) Status: Chronic Qualifiers: Diabetes mellitus complication status: with unspecified complications Diabetes mellitus terminal clerk insulin use: without correction use Qualified Codes : E11.8 - Type 2 diabetes mellitus with unspecified complications (9) HLD (hyperlipidemia) Status: Chronic Qualifiers: Hyperlipidemia type: unspecified Qualified Codes: E78.5 - Hyperlipidemia, unspecified (10) UTI (urinary tract infection) Status: Acute Qualifiers: Indwelling urinary catheter type: unspecified Assessment & Plan: MICROBIOLOGY URINE CULTURE. Final 10/28/16-0750 Organism 1 ESCHERICHIA COLI COLONY COUNT >100,000 CFU/ml Organism 2 ALPHA-HEMOLYTIC STREPTOCOCCUS COLONY COUNT 10,000 - 50,000 CFU/ml ORGANISM COMMENT: NO SENSITIVITY PERFORMED E COLI INTERP ANGELES ------ --------- AMOX/CLAV ACID S <=2 AMPICILLIN S <=2 CEFAZOLIN S <=4 CEFEPIME S <=1 CEFTAZIDIME S <=1 CEFTRIAXONE S <=1 CIPROFLOXACIN S <=0.25 ERTAPENEM S <=0.5 GENTAMICIN S <=1 LEVOFLOXACIN S <=0.12 NITROFURANTOIN S <=16 TOBRAMYCIN S <=1 TRIMETH/SULFA S <=20 PIPERACILL/TAZO S <=4 (11) Acute blood loss anemia Status: Acute Assessment 10/28/16- *Hip fx s/p repair- per Dr. Carmen. Potential dismissal to SNU. Resume home Tramadol for pain management. Minimize narcotics. *Chronic immobility Uses power scooter/Albert lift at home. Consider DC Pruitt when pain is improved. *UTI, polyorganism Continue Ceftriaxone D#2. Consider change to Keflex on dismissal for total 7 days therapy. *ABLA- s/p transfusion. Recheck labs today. *Fluid overload/HTN- suspect some underlying valvular heart disease given exam. Weight is up about 6kg. Start daily Lasix/KCL. No antihypertensives at home. DC IVF *HLD-statin *DM2- resume home metformin. Continue SSI for now as BG is a bit high. *Constipation- Multiple laxatives- BS hyperactive. Give dulcolax [place] x 1 now to assist with BM. *Depression, anxiety- home Celexa. Continue supportive care- repeat labs. Start bladder training. Potential DC to SNU on Sunday. DVT Prophylaxis: Lovenox Code Status Do Not Resuscitate Hospital Course Summary Disclaimer The hospital course summary below is not to be considered part of the above Progress Note. Hospital Course Summary 1. Proximal femur fracture 2. UTI 3. History stroke with right hemiparesis 4. Acute blood loss anemia 5. Diabetes mellitus 6. Hypertension 7. Obstructive sleep apnea 8. Osteoarthritis 9. Right lower extremity muscle spasms Hemoglobin has dropped from 12.4 to 7.4 in approximately 36 hours with further drop anticipated in the immediate postoperative time. No clear symptoms in the absence of activities however given anticipated further drop in history cerebrovascular disease I believe it safer to proceed with transfusion now than wait till patient is compromised. One unit of packed red blood cells will be given today with 20 mg of Lasix in conjunction with blood. Flexeril added when necessary for muscle spasms. Continue to monitor hemoglobin. Sensitivities pending for gram-negative identified in urine and further identification of gram-positive organism pending. Continue Rocephin pending additional information. Blood pressure well-controlled. Blood sugars erratic in the immediate postoperative time. Resume metformin tomorrow. Resume aspirin for stroke prophylaxis. 10/28/16- *Hip fx s/p repair- per Dr. Carmen. Potential dismissal to SNU. Resume home Tramadol for pain management. Minimize narcotics. *Chronic immobility Uses power scooter/Albert lift at home. Consider DC Pruitt when pain is improved. *UTI, polyorganism Continue Ceftriaxone D#2. Consider change to Keflex on dismissal for total 7 days therapy. *ABLA- s/p transfusion. Recheck labs today. *Fluid overload/HTN- suspect some underlying valvular heart disease given exam. Weight is up about 6kg. Start daily Lasix/KCL. No antihypertensives at home. DC IVF *HLD-statin *DM2- resume home metformin. Continue SSI for now as BG is a bit high. *Constipation- Multiple laxatives- BS hyperactive. Give dulcolax [place] x 1 now to assist with BM. *Depression, anxiety- home Celexa. Continue supportive care- repeat labs. Start bladder training. Potential DC to SNU on Sunday. EMELY LEONARD POLITICAL SCIENCE CHAIR Oct 28, 2016 10:14
[2016-10-28 10:47] LABS: BASOPHILS # (AUTO) 0.1 T/MM3 (0-0.2); BASOPHILS % (AUTO) 0.4 % (0-2); EOSINOPHILS # (AUTO) 0.2 T/MM3 (0-0.5); EOSINOPHILS % (AUTO) 1.7 % (0-4); HCT - HEMATOCRIT 27.2 % (36-46); HGB - HEMOGLOBIN 8.8 GM/DL (12-16); IMMATURE GRANULOCYTE # (AUTO) 0.06 T/MM3 (0.00-0.03); IMMATURE GRANULOCYTE % (AUTO) 0.5 % (0.0-0.5); LYMPHOCYTES # (AUTO) 1.9 T/MM3 (1-4.8); LYMPHOCYTES % (AUTO) 17.3 % (23-45); MEAN CORPUSCULAR HGB 30.6 UUG (26-34); MEAN CORPUSCULAR HGB CONC(MCHC 32.4 GM/DL (31-37); MEAN CORPUSCULAR VOLUME 94.4 UM3 (80-100); MEAN PLATELET VOLUME 12.1 UM3 (9.4-12.4); MONOCYTES # (AUTO) 1.1 T/MM3 (0-0.8); MONOCYTES % (AUTO) 9.5 % (0-9.0); NEUTROPHILS #(AUTO)-ABSOLUTE 7.9 T/MM3 (1.8-7.7); NEUTROPHILS % (AUTO) 70.6 % (33-66); RED BLOOD COUNT 2.88 M/MM3 (4.00-5.20); WBC - WHITE BLOOD COUNT 11.2 T/MM3 (4.5-11.0)
[2016-10-28 10:56] LABS: ALBUMIN 3.1 G/DL (3.5-5.0); ANION GAP 12 MEQ/L (5-15); BUN/CREATININE RATIO 15 RATIO (6-26); CALCIUM 8.7 MG/DL (8.4-10.2); CHLORIDE 108 MEQ/L (98-107); CO2 - CARBON DIOXIDE 26 MEQ/L (22-30); CREATININE 0.8 MG/DL (0.7-1.2); GLOMERULAR FILTRATION RATE 68; GLUCOSE 187 MG/DL (65-110); PHOSPHORUS 2.9 MG/DL (2.5-4.5); POTASSIUM 4.4 MEQ/L (3.6-5); SODIUM 146 MEQ/L (134-144)
[2016-10-28] MEDS: POTASSIUM CHLORIDE 20 MEQ TABLET PO SCH (11:09)
[2016-10-28] MEDS: FUROSEMIDE 40 MG TABLET PO SCH (11:09)
--- NOTE | 2016-10-28 11:34 | PDORTHOPN ---
Subjective Date DATE: 10/28/16 TIME: 11:30 Subjective Alycia is having more pain this AM. She has sit on the edge of the bed with PT but has not stood. Previous -CVA with right sided weakness will limit progress. No BM yet. She got a supp this AM.. Objective Vital Signs Vital signs Vital Signs 10/28/16 10/28/16 10/28/16 10/28/16 00:11 04:06 04:52 08:38 Temp 98.8 98.0 98.0 Pulse 92 94 88 Resp 14 16 16 B/P 138/63 136/57 152/71 Pulse Ox 91 90 92 93 O2 Delivery Room Air Room Air Room Air Room Air 10/28/16 09:52 Pulse 88 Resp 16 Height (Feet): 5 Height (Inches): 3.00 Weight (Kilograms): 106.300 General General Appearance: Alert, Overweight, Mild Distress Respiratory (Brief) Respiratory Brief: FOUND: non-labored Cardiovascular (Brief) Cardiac: FOUND: calf easily compressible, calf soft, nontender, pedal pulses intact Abdomen (Brief) Abdominal Brief: FOUND: non-tender, soft Musculoskeletal (Brief) Musculoskeletal Brief: FOUND: tenderness (At the right trochanter and right distal femur around the medial condyle of the knee.) Surgical Site Incision: FOUND: dressing intact, no drainage Integumentary (Brief) Integumentary Brief: FOUND dry, FOUND pink, FOUND warm Neurologic (Brief) Neurological Brief: FOUND: deficit present (From her previous right-sided CVA in Jul 2016. Findings are stable compared to her pre op exam.) Psychiatric (Brief) Psychiatric Brief: FOUND: alert, no acute distress, oriented Laboratory Laboratory Laboratory Tests 10/26/16 18:23 10/27/16 04:24 10/27/16 16:56 10/28/16 10:41 Laboratory Tests 10/27/16 04:24 10/28/16 10:41 Microbiology Microbiology Microbiology Date/Time Source Procedure Growth Status 10/25/16 20:45 Urine, Clean Catch-Midstream Urine Culture - Final Escherichia Coli Alpha-Hemolytic Streptococcus Complete Assessment & Plan Problems: (1) Subtrochanteric fracture of right femur Status: Acute Qualifiers: Encounter type: initial encounter Fracture type: closed Qualified Codes: S72.21XA - Displaced subtrochanteric fracture of right femur, initial encounter for closed fracture Assessment & Plan: x S/P IM nailing with long gamma nail 10/26/16. SCD's & Lovenox for DVT coverage. Hgb 8.8 this morning. Urine C&S pending. Begin mobilization / txfrs as tolerated. Hospitalist to manage medically. Hospital Course Summary Disclaimer The visit summary below is not to be considered part of the above Progress Note. Hospital Course 1. Proximal femur fracture 2. UTI 3. History stroke with right hemiparesis 4. Acute blood loss anemia 5. Diabetes mellitus 6. Hypertension 7. Obstructive sleep apnea 8. Osteoarthritis 9. Right lower extremity muscle spasms Hemoglobin has dropped from 12.4 to 7.4 in approximately 36 hours with further drop anticipated in the immediate postoperative time. No clear symptoms in the absence of activities however given anticipated further drop in history cerebrovascular disease I believe it safer to proceed with transfusion now than wait till patient is compromised. One unit of packed red blood cells will be given today with 20 mg of Lasix in conjunction with blood. Flexeril added when necessary for muscle spasms. Continue to monitor hemoglobin. Sensitivities pending for gram-negative identified in urine and further identification of gram-positive organism pending. Continue Rocephin pending additional information. Blood pressure well-controlled. Blood sugars erratic in the immediate postoperative time. Resume metformin tomorrow. Resume aspirin for stroke prophylaxis. 10/28/16- *Hip fx s/p repair- per Dr. Carmen. Potential dismissal to SNU. Resume home Tramadol for pain management. Minimize narcotics. *Chronic immobility Uses power scooter/Albert lift at home. Consider DC Pruitt when pain is improved. *UTI, polyorganism Continue Ceftriaxone D#2. Consider change to Keflex on dismissal for total 7 days therapy. *ABLA- s/p transfusion. Recheck labs today. *Fluid overload/HTN- suspect some underlying valvular heart disease given exam. Weight is up about 6kg. Start daily Lasix/KCL. No antihypertensives at home. DC IVF *HLD-statin *DM2- resume home metformin. Continue SSI for now as BG is a bit high. *Constipation- Multiple laxatives- BS hyperactive. Give dulcolax [place] x 1 now to assist with BM. *Depression, anxiety- home Celexa. Continue supportive care- repeat labs. Start bladder training. Potential DC to SNU on Sunday. TOMMIE LEZAMA Oct 28, 2016 11:33
[2016-10-28] MEDS: TRAMADOL 50 MG TABLET PO PRN ×2 (14:22→21:20)
[2016-10-28 16:17] LABS: C. DIFFICILE TOXIN B NEGATIVE (NEGATIVE)
--- NOTE | 2016-10-28 18:02 | NUR ---
PROGRESS NOTE THE PT IS ALERT AND ORIENTED X3 BUT THERE IS SOME CONFUSION NOTED AT TIMES. THE PT WAS REPORTING CONSTIPATION THIS MORNING SINCE THE September AND WAS GIVEN SCHEDULED LAXATIVE AND STOOL SOFTENER ALONG WITH MILK OF MAGNESIA WITH BREAKFAST, NO RESULTS OCCURRED AND THE PT WAS GIVEN A SUPPOSITORY AROUND 11AM. PT HAD SEVERAL LARGE LOOSE BOWEL MOVEMENTS AND A SPECIMEN WAS SENT TO LAB TO TEST FOR C-DIFF WITH A NEGATIVE RESULT. THE PT HAS NOT HAD ANY MORE STOOLS THIS AFTERNOON. THE PT IS TOLERATING A REGULAR DIET WELL. PT REFUSED TO WORK WITH PHYSICAL THERAPY THIS MORNING AND HAS BEEN TURNED Q2H THIS SHIFT. THE PT REQUIRED INSULIN TWICE THIS SHIFT AND HAS REQUIRED SEVERAL DOSES OF PRN ULTRAM AND NORCO. PT REDDY CATHETER PATENT WITH ADEQUATE URINE OUTPUT AND CATHETER CARE WITH EACH LOOSE STOOL. NO OTHER CONCERNS NOTED. WILL CONTINUE TO MONITOR. PT IS RESTING IN BED, CALL LIGHT WITHIN REACH, FAMILY PRESENT IN ROOM.
[2016-10-28] MEDS: METFORMIN 500 MG TABLET PO SCH (18:50)
[2016-10-28] MEDS ORDERED: NORMAL SALINE 500 ML IV PRN (21:15)
[2016-10-28] MEDS: ATORVASTATIN 40 MG TABLET PO SCH (21:19)
[2016-10-28] MEDS: CYCLOBENZAPRINE 5 MG TABLET PO SCH (21:19)
[2016-10-28] MEDS: CEFTRIAXONE 1 G in NORMAL SALINE 100 ML IV SCH (21:19)
[2016-10-28] MEDS: ENOXAPARIN 40 MG/0.4 ML INJECTION SQ SCH (21:22)
[2016-10-29] VITALS (9 sets, daily range): BP systolic 129–153; BP diastolic 57–74; PULSE 85–103; RESP 16–20; TEMP 96.1–98.5; O2SAT 92–96
[2016-10-29] MEDS: NOZIN NASAL SWAB NS SCH ×3 (01:35→17:17)
--- NOTE | 2016-10-29 01:57 | NUR ---
Chart Check 24 hour chart check completed
--- NOTE | 2016-10-29 06:44 | NUR ---
STATUS PATIENT ALTER AND ORIENTEDX3. BUT THERE IS SOME CONFUSION NOTED AT TIME. PATIENT HAD SEVERAL LARGE LOOSE BOWEL MOVEMENTS DURING NIGHT. PATIENT REDDY CATHETER PATENT WITH ADEQUATE URINE OUTPUT. PATIENT HAD SLEPT THROUGH NIGHT. PRN TRAMADOL WAS ADMINISTRATED FOR PAIN. 1L O2 VIA NC DUE TO SPO2 DROP DURING SLEEP PER ETCHER ELECTROLYTIC REPORTED. N/O C/O CHEST PAIN,SOA,OR N/V. 10 ML NS FLUSHED WELL THROUGH IV LOCK AT L WRIST. BLADDER TRAINING Q2H.Q2H CHANGED POSITION. DRESSING DRY ,INTACT AT RT HIP.CALL LIGHT WITHIN REACH .BED ALARM ON. CONTINUE TO MONITOR.
[2016-10-29] MEDS: POLYETHYL.GLYCOL 3350 PACKET 17gm PO SCH (09:00)
[2016-10-29] MEDS: SENNA + DOCUSATE TAB PO SCH (09:00)
[2016-10-29] MEDS: ASPIRIN 325 MG TABLET PO SCH (09:39)
[2016-10-29] MEDS: FUROSEMIDE 40 MG TABLET PO SCH (09:40)
[2016-10-29] MEDS: POTASSIUM CHLORIDE 20 MEQ TABLET PO SCH (09:40)
[2016-10-29] MEDS: HYDROCODONE/APAP 5 mg/325 mg TABLET PO PRN ×2 (09:40→17:18)
[2016-10-29] MEDS: METFORMIN 500 MG TABLET PO SCH ×2 (09:40→17:18)
--- NOTE | 2016-10-29 09:52 | PNPDOC ---
Subjective Date DATE: 10/29/16 TIME: 09:48 Subjective Feels well. States is having lots of loose stools now. No nausea or vomiting. Objective Vital Signs Vital signs Vital Signs Date Time Temp Pulse Resp B/P Pulse Ox O2 Delivery O2 Flow Rate FiO2 10/29/16 03:28 97.6 91 20 129/63 92 Room Air 10/27/16 12:39 1.00 Telemetry Rhythm: Sinus Rhythm Height (Feet): 5 Height (Inches): 3.00 Weight (Kilograms): 107.500 General General Appearance: Alert, Orientated x 3 Respiratory (Brief) Respiratory: FOUND: clear all majano, equal bilaterally Cardiovascular (Brief) Cardiac: FOUND: regular rate, regular rhythm Abdomen (Brief) Abdominal: FOUND: BS normo active x4, soft, NOT FOUND: distended, tender Extremities (Brief) Extremity : Extremity Finding: NOT FOUND: clubbing, cyanosis, edema Laboratory Laboratory Laboratory Tests 10/28/16 10:41 Laboratory Tests 10/27/16 16:56 10/28/16 10:41 Assessment & Plan Problems: (1) Subtrochanteric fracture of right femur Status: Acute Qualifiers: Encounter type: initial encounter Fracture type: closed Qualified Codes: S72.21XA - Displaced subtrochanteric fracture of right femur, initial encounter for closed fracture (2) Fluid overload Status: Resolved Qualifiers: Hypervolemia type: other Qualified Codes: E87.79 - Other fluid overload (3) Constipation Status: Resolved Qualifiers: Constipation type: unspecified constipation type Qualified Codes: K59.00 - Constipation, unspecified Assessment & Plan: Discontinue laxatives. (4) Anxiety and depression Status: Chronic (5) Hypertension Status: Acute (6) Fall Status: Acute Qualifiers: Encounter type: initial encounter Qualified Codes: W19.XXXA - Unspecified fall, initial encounter (7) CVA, old, hemiparesis Status: Chronic (8) DM type 2 (diabetes mellitus, type 2) Status: Chronic Qualifiers: Diabetes mellitus complication status: with unspecified complications Diabetes mellitus group home insulin use: without dedicated intermodal truck driver use Qualified Codes : E11.8 - Type 2 diabetes mellitus with unspecified complications (9) HLD (hyperlipidemia) Status: Chronic Qualifiers: Hyperlipidemia type: unspecified Qualified Codes: E78.5 - Hyperlipidemia, unspecified (10) UTI (urinary tract infection) Status: Acute Qualifiers: Indwelling urinary catheter type: unspecified Assessment & Plan: MICROBIOLOGY URINE CULTURE. Final 10/28/16-0750 Organism 1 ESCHERICHIA COLI COLONY COUNT >100,000 CFU/ml Organism 2 ALPHA-HEMOLYTIC STREPTOCOCCUS COLONY COUNT 10,000 - 50,000 CFU/ml ORGANISM COMMENT: NO SENSITIVITY PERFORMED E COLI INTERP ANGELES ------ --------- AMOX/CLAV ACID S <=2 AMPICILLIN S <=2 CEFAZOLIN S <=4 CEFEPIME S <=1 CEFTAZIDIME S <=1 CEFTRIAXONE S <=1 CIPROFLOXACIN S <=0.25 ERTAPENEM S <=0.5 GENTAMICIN S <=1 LEVOFLOXACIN S <=0.12 NITROFURANTOIN S <=16 TOBRAMYCIN S <=1 TRIMETH/SULFA S <=20 PIPERACILL/TAZO S <=4 (11) Acute blood loss anemia Status: Acute Assessment 10/28/16- *Hip fx s/p repair- per Dr. Carmen. Potential dismissal to SNU. Resume home Tramadol for pain management. Minimize narcotics. *Chronic immobility Uses power scooter/Albert lift at home. Consider DC Pruitt when pain is improved. *UTI, polyorganism Continue Ceftriaxone D#3. Change to Keflex on dismissal for total 7 days therapy. *ABLA- s/p transfusion. *Fluid overload/HTN- suspect some underlying valvular heart disease given exam. Weight is up about 6kg. Start daily Lasix/KCL. No antihypertensives at home. DC IVF *HLD-statin *DM2- resume home metformin. Continue SSI for now as BG is a bit high. *Constipation- Multiple laxatives- BS hyperactive. Give dulcolax [place] x 1 now to assist with BM. *Depression, anxiety- home Celexa. Continue supportive care- repeat labs. Start bladder training. Potential DC to SNU on Sunday. Code Status Do Not Resuscitate Hospital Course Summary Disclaimer The hospital course summary below is not to be considered part of the above Progress Note. Hospital Course Summary 1. Proximal femur fracture 2. UTI 3. History stroke with right hemiparesis 4. Acute blood loss anemia 5. Diabetes mellitus 6. Hypertension 7. Obstructive sleep apnea 8. Osteoarthritis 9. Right lower extremity muscle spasms Hemoglobin has dropped from 12.4 to 7.4 in approximately 36 hours with further drop anticipated in the immediate postoperative time. No clear symptoms in the absence of activities however given anticipated further drop in history cerebrovascular disease I believe it safer to proceed with transfusion now than wait till patient is compromised. One unit of packed red blood cells will be given today with 20 mg of Lasix in conjunction with blood. Flexeril added when necessary for muscle spasms. Continue to monitor hemoglobin. Sensitivities pending for gram-negative identified in urine and further identification of gram-positive organism pending. Continue Rocephin pending additional information. Blood pressure well-controlled. Blood sugars erratic in the immediate postoperative time. Resume metformin tomorrow. Resume aspirin for stroke prophylaxis. 10/28/16- *Hip fx s/p repair- per Dr. Carmen. Potential dismissal to SNU. Resume home Tramadol for pain management. Minimize narcotics. *Chronic immobility Uses power scooter/Albert lift at home. Consider DC Pruitt when pain is improved. *UTI, polyorganism Continue Ceftriaxone D#2. Consider change to Keflex on dismissal for total 7 days therapy. *ABLA- s/p transfusion. Recheck labs today. *Fluid overload/HTN- suspect some underlying valvular heart disease given exam. Weight is up about 6kg. Start daily Lasix/KCL. No antihypertensives at home. DC IVF *HLD-statin *DM2- resume home metformin. Continue SSI for now as BG is a bit high. *Constipation- Multiple laxatives- BS hyperactive. Give dulcolax [place] x 1 now to assist with BM. *Depression, anxiety- home Celexa. Continue supportive care- repeat labs. Start bladder training. Potential DC to SNU on Sunday. HERNANDO GALEANO MD Oct 29, 2016 09:51
[2016-10-29 10:31] LABS: BASOPHILS % (AUTO) 0.4 % (0-2); EOSINOPHILS # (AUTO) 0.4 T/MM3 (0-0.5); EOSINOPHILS % (AUTO) 3.1 % (0-4); HCT - HEMATOCRIT 27.8 % (36-46); HGB - HEMOGLOBIN 8.9 GM/DL (12-16); IMMATURE GRANULOCYTE # (AUTO) 0.05 T/MM3 (0.00-0.03); IMMATURE GRANULOCYTE % (AUTO) 0.4 % (0.0-0.5); LYMPHOCYTES # (AUTO) 1.8 T/MM3 (1-4.8); LYMPHOCYTES % (AUTO) 16.2 % (23-45); MEAN CORPUSCULAR HGB 30.9 UUG (26-34); MEAN CORPUSCULAR VOLUME 96.5 UM3 (80-100); MEAN PLATELET VOLUME 12.9 UM3 (9.4-12.4); NEUTROPHILS % (AUTO) 70.9 % (33-66); RED BLOOD COUNT 2.88 M/MM3 (4.00-5.20); WBC - WHITE BLOOD COUNT 11.3 T/MM3 (4.5-11.0)
[2016-10-29 10:41] LABS: ANION GAP 12 MEQ/L (5-15); BUN/CREATININE RATIO 16 RATIO (6-26); CHLORIDE 105 MEQ/L (98-107); CO2 - CARBON DIOXIDE 26 MEQ/L (22-30); CREATININE 0.7 MG/DL (0.7-1.2); GLOMERULAR FILTRATION RATE 80; GLUCOSE 173 MG/DL (65-110); POTASSIUM 4.4 MEQ/L (3.6-5); SODIUM 143 MEQ/L (134-144)
[2016-10-29] MEDS: INSULIN ASPART 100 UNIT/ML SQ PRN ×2 (12:48→20:20)
[2016-10-29] MEDS: CYCLOBENZAPRINE 5 MG TABLET PO PRN (15:41)
[2016-10-29] MEDS: TRAMADOL 50 MG TABLET PO PRN (15:43)
--- NOTE | 2016-10-29 19:37 | NUR ---
PROGRESS NOTE PT IS ALERT AND ORIENTED X3. VITAL SIGNS ARE STABLE, PT ON 1L O2 PER NC. THE PT HAS BEEN TURNED Q2H THIS SHIFT AND HAS HAD SEVERAL DOSES OF PRN ULTRAM AND NORCO. THE PT HAS A PATENT REDDY CATHETER WITH ADEQUATE URINE OUTPUT AND HAS HAD MULTIPLE SMALL INCONTINENT BOWEL MOVEMENTS THIS SHIFT. THE PT HAD POOR APPETITE THIS SHIFT. THE PT HAD MULTIPLE VISITORS THIS SHIFT AND GOT LITTLE REST. NO OTHER CONCERNS NOTED.
[2016-10-29] MEDS ORDERED: SENNA + DOCUSATE TAB PO PRN (20:00)
[2016-10-29] MEDS ORDERED: POLYETHYL.GLYCOL 3350 PACKET 17gm PO PRN (20:00)
[2016-10-29] MEDS: ENOXAPARIN 40 MG/0.4 ML INJECTION SQ SCH (20:16)
[2016-10-29] MEDS: CEFTRIAXONE 1 G in NORMAL SALINE 100 ML IV SCH (20:23)
[2016-10-29] MEDS: ATORVASTATIN 40 MG TABLET PO SCH (21:26)
[2016-10-29] MEDS: CYCLOBENZAPRINE 5 MG TABLET PO SCH (21:26)
[2016-10-30] MEDS: NOZIN NASAL SWAB NS SCH ×2 (01:30→08:20)
[2016-10-30] MEDS: TRAMADOL 50 MG TABLET PO PRN (02:02)
--- NOTE | 2016-10-30 02:28 | NUR ---
Chart Check 24 hour chart check completed
[2016-10-30 04:00] VITALS: BP 136/71; PULSE 95; RESP 16; TEMP 98.9; O2SAT 93
--- NOTE | 2016-10-30 04:43 | NUR ---
STATUS PATIENT ALERT AND ORIENTEDX3.VSS STABLE ON 1L O2 NC SNORES/SLEEP APNEA.PRN TRAMADOL WAS ADMINISTRATED FOR PAIN. PATIENT SLEPT THROUGH NIGHT. TOLERATES REPOSITION WELL. PATIENT SLEPT WELL THROUGHOUT NIGHT. NO BM DURING SHIFT. CALL LIGHT WITHIN REACH. SCD ON. ICE PACK APPLIED TO RT HIP.Q2H BLADDER TRAINING.CONTINUE TO MONITOR.
[2016-10-30] MEDS: INSULIN ASPART 100 UNIT/ML SQ PRN ×2 (05:27→10:53)
--- NOTE | 2016-10-30 06:01 | PDORTHOPN ---
Subjective Date DATE: 10/30/16 TIME: 05:59 Subjective Alycia was seen 10/29/16. She has no complaints. Previous -CVA with right sided weakness will limit progress. . Objective Vital Signs Vital signs Vital Signs 10/29/16 10/29/16 10/29/16 10/29/16 19:40 20:00 22:00 23:02 Temp 96.1 97.1 Pulse 103 103 94 Resp 16 16 16 B/P 150/68 134/62 Pulse Ox 95 93 O2 Delivery Nasal Cannula Nasal Cannula Nasal Cannula O2 Flow Rate 1.50 2.00 1.00 10/30/16 04:00 Temp 98.9 Pulse 95 Resp 16 B/P 136/71 Pulse Ox 93 O2 Delivery Nasal Cannula O2 Flow Rate 1.00 Height (Feet): 5 Height (Inches): 3.00 Weight (Kilograms): 107.500 General General Appearance: Alert, Overweight, Mild Distress Respiratory (Brief) Respiratory Brief: FOUND: non-labored Cardiovascular (Brief) Cardiac: FOUND: calf easily compressible, calf soft, nontender, pedal pulses intact Abdomen (Brief) Abdominal Brief: FOUND: non-tender, soft Musculoskeletal (Brief) Musculoskeletal Brief: FOUND: tenderness (At the right trochanter and right distal femur around the medial condyle of the knee.) Surgical Site Incision: FOUND: dressing intact, no drainage Integumentary (Brief) Integumentary Brief: FOUND dry, FOUND pink, FOUND warm Neurologic (Brief) Neurological Brief: FOUND: deficit present (From her previous right-sided CVA in Jul 2016. Findings are stable compared to her pre op exam.) Psychiatric (Brief) Psychiatric Brief: FOUND: alert, no acute distress, oriented Laboratory Laboratory Laboratory Tests 10/28/16 10:41 10/29/16 09:34 Laboratory Tests 10/28/16 10:41 10/29/16 09:34 Assessment & Plan Problems: (1) Subtrochanteric fracture of right femur Status: Acute Qualifiers: Encounter type: initial encounter Fracture type: closed Qualified Codes: S72.21XA - Displaced subtrochanteric fracture of right femur, initial encounter for closed fracture Assessment & Plan: x S/P IM nailing with long gamma nail 10/26/16. SCD's & Lovenox for DVT coverage. Begin mobilization / txfrs as tolerated. Hospitalist to manage medically. Hospital Course Summary Disclaimer The visit summary below is not to be considered part of the above Progress Note. Hospital Course 1. Proximal femur fracture 2. UTI 3. History stroke with right hemiparesis 4. Acute blood loss anemia 5. Diabetes mellitus 6. Hypertension 7. Obstructive sleep apnea 8. Osteoarthritis 9. Right lower extremity muscle spasms Hemoglobin has dropped from 12.4 to 7.4 in approximately 36 hours with further drop anticipated in the immediate postoperative time. No clear symptoms in the absence of activities however given anticipated further drop in history cerebrovascular disease I believe it safer to proceed with transfusion now than wait till patient is compromised. One unit of packed red blood cells will be given today with 20 mg of Lasix in conjunction with blood. Flexeril added when necessary for muscle spasms. Continue to monitor hemoglobin. Sensitivities pending for gram-negative identified in urine and further identification of gram-positive organism pending. Continue Rocephin pending additional information. Blood pressure well-controlled. Blood sugars erratic in the immediate postoperative time. Resume metformin tomorrow. Resume aspirin for stroke prophylaxis. 10/28/16- *Hip fx s/p repair- per Dr. Carmen. Potential dismissal to SNU. Resume home Tramadol for pain management. Minimize narcotics. *Chronic immobility Uses power scooter/Albert lift at home. Consider DC Pruitt when pain is improved. *UTI, polyorganism Continue Ceftriaxone D#2. Consider change to Keflex on dismissal for total 7 days therapy. *ABLA- s/p transfusion. Recheck labs today. *Fluid overload/HTN- suspect some underlying valvular heart disease given exam. Weight is up about 6kg. Start daily Lasix/KCL. No antihypertensives at home. DC IVF *HLD-statin *DM2- resume home metformin. Continue SSI for now as BG is a bit high. *Constipation- Multiple laxatives- BS hyperactive. Give dulcolax [place] x 1 now to assist with BM. *Depression, anxiety- home Celexa. Continue supportive care- repeat labs. Start bladder training. Potential DC to SNU on Sunday. ROSARIO MUELLER October 30, 2016 06:01
[2016-10-30 07:00] VITALS: BP 139/68; PULSE 96; RESP 18; TEMP 96.9; O2SAT 96
[2016-10-30 08:11] VITALS: PULSE 96; RESP 18
[2016-10-30] MEDS: POTASSIUM CHLORIDE 20 MEQ TABLET PO SCH (08:20)
[2016-10-30] MEDS: METFORMIN 500 MG TABLET PO SCH (08:20)
[2016-10-30] MEDS: ASPIRIN 325 MG TABLET PO SCH (08:20)
[2016-10-30] MEDS: HYDROCODONE/APAP 5 mg/325 mg TABLET PO PRN (08:21)
[2016-10-30] MEDS: FUROSEMIDE 40 MG TABLET PO SCH (08:21)
--- NOTE | 2016-10-30 09:02 | NUR ---
CM PER FAMILY REQUEST, CM CHECKED WITH [facility] ABOUT GETTING [facility]. THEY WERE ABLE TO CHECK RECORDS AND FOUND THAT PT SIT TO [facility] IS FROM [facility]. PT WILL HAVE TO USE [facility] IF HOME [facility] IF DESIRED.
[2016-10-30] MEDS: CYCLOBENZAPRINE 5 MG TABLET PO PRN (09:11)
--- NOTE | 2016-10-30 10:58 | NUR ---
[facility] CM IN TO VISIT WITH PT. SHE IS ALERT AND ORIENTED. HER SPOUSE AND CAREGIVER, JACKELIN, ARE PRESENT. THEY ARE CONSIDERING SNF. THEY ARE MADE AWARE THAT PT HAS BEEN ACCEPTED TO [facility]. CM LETS THEM KNOW WHAT SHE HAS FOUND ABOUT THE LIFT. THEY GIVE PERMISSION TO CHECK WITH [facility].
--- NOTE | 2016-10-30 11:09 | NUR ---
CM CM TELEPHONED [facility]. THEY REPORT THAT PT GOT HOSPITAL BED AND W/C FROM THEM BUT HAVE NO RECORD OF LIFT. CM TELEPHONED [facility]. THEY HAVE NO RECORD OF LIFT BEING PURCHASED FROM THEM. CM LEFT MESSAGE FOR [facility] TO CHECK AGAIN TO SEE IF LIFT WAS PURCHASED FROM THEM. SPOUSE IS SURE THAT IS WHERE THEY GO IT.
--- NOTE | 2016-10-30 11:36 | PDOCECFAO ---
Admission Orders Admission Orders Admit to: [facility] Allergies: Coded Allergies: No Known Allergies (Unverified , 10/25/16) Admitting Diagnosis Rt Femur Fracture Admitting Physician Lilibeth Villalba MD Code Status Do Not Resuscitate Anticipated LOS: 30 days or less Rehab Potential: Good Rehab Prognosis: Fair Diet: No Concentrated Sweets May use Facility Protocol /SO: Yes May Have Flu Vaccine: Yes Evaluations/Treat: PT, OT [facility] Certification I certify that SNF services are required to be given on an Inpatient basis because of the patients need for intermediate care on a continuing basis for the condition(s) for which he/she received inpatient hospital services prior to his/her transfer to the SNF. SNF inpatient care is necessary for the following reasons Postop Assessment Care HERNANDO GALEANO MD October 30, 2016 11:36
[2016-10-30] MEDS ORDERED: ENOX40DI SQ (11:42)
[2016-10-30] MEDS ORDERED: CEPH-583 PO (11:42)
--- NOTE | 2016-10-30 11:50 | DSPDOC ---
General Date Date DATE: 10/30/16 TIME: 11:45 Attending Physician Lilibeth Villalba MD Admitting Physician Lilibeth Villalba MD Consulting Physician Kaitlynn Villegas Admitting Diagnosis right femur fracture Discharge Diagnosis Right femur fracture Urinary tract infection Diabetes mellitus Dyslipidemia History of CVA Procedures Right femur fracture repair by Dr. Carmen Laboratory Laboratory Tests Test 10/29/16 05:50 10/29/16 09:34 10/29/16 11:10 10/29/16 15:40 Glucometer 136mg/dL (65-110) 222mg/dL (65-110) 121mg/dL (65-110) White Blood Count 11.3T/MM3 (4.5-11.0) Red Blood Count 2.88M/MM3 (4.00-5.20) Hemoglobin 8.9GM/DL (12-16) Hematocrit 27.8% (36-46) Mean Corpuscular Volume 96.5UM3 (80-100) Mean Corpuscular Hemoglobin 30.9UUG (26-34) Mean Corpuscular Hemoglobin Concent 32.0GM/DL (31-37) RDW Standard Deviation 49.5FL (36.9-50.2) Platelet Count 174T/MM3 (130-400) Mean Platelet Volume 12.9UM3 (9.4-12.4) Immature Granulocyte % (Auto) 0.4% (0.0-0.5) Neutrophils (%) (Auto) 70.9% (33-66) Lymphocytes (%) (Auto) 16.2% (23-45) Monocytes (%) (Auto) 9.0% (0-9.0) Eosinophils (%) (Auto) 3.1% (0-4) Basophils (%) (Auto) 0.4% (0-2) Absolute Immature Granulocyte (auto 0.05T/MM3 (0.00-0.03) Absolute Neutrophils (auto) 8.0T/MM3 (1.8-7.7) Absolute Lymphocytes (auto) 1.8T/MM3 (1-4.8) Absolute Monocytes (auto) 1.0T/MM3 (0-0.8) Absolute Eosinophils (auto) 0.4T/MM3 (0-0.5) Absolute Basophils (auto) 0.0T/MM3 (0-0.2) Turbidity < 20 (0-20) Sodium Level 143MEQ/L (134-144) Potassium Level 4.4MEQ/L (3.6-5) Chloride Level 105MEQ/L (98-107) Carbon Dioxide Level 26MEQ/L (22-30) Anion Gap 12MEQ/L (5-15) Blood Urea Nitrogen 11.0MG/DL (7-17) Creatinine 0.7MG/DL (0.7-1.2) Glomerular Filtration Rate Calc 80 BUN/Creatinine Ratio 16RATIO (6-26) Glucose Level 173MG/DL (65-110) Calculated Osmolality 278MOSM/KG (261-280) Calcium Level 9.0MG/DL (8.4-10.2) Icterus Index < 2 (0-7) Chemistry Specimen Hemolysis < 15 (0-25) Test 10/29/16 19:47 10/30/16 05:23 10/30/16 10:33 Glucometer 162mg/dL (65-110) 162mg/dL (65-110) 236mg/dL (65-110) History of Present Illness This is an 86 y/o female w/ h/o CVA w/ Right sided residual weakness & DM type 2 who presents to ED at [facility] [place] by EMS after fall out of her motorized scooter today while feeding the chickens. She c/o right hip and leg pain and xray confirms femur fracture on the right. Patient received Fentanyl 100mcg per EMS and her pain is currently controlled. She was in her usual state of health prior to the fall out of the scooter. She denies LOC and head trauma and CT head in ER reported as negative. Patient noted to have WBCs on micro of her urine so started on Rocephin [address] Carmen of ortho contacted and will see the patient in consult and requests admission to the Hospitalist service. CXR reported as normal and EKG NSR. Patient denies chest pain, soa, dyspnea, LAZO, n/v and no change in bowel/bladder function. Pain w/ movement of right LE. Patient to be admitted to the Hospitalist service for further evaluation and management. Hospital Course 1. Proximal femur fracture 2. UTI 3. History stroke with right hemiparesis 4. Acute blood loss anemia 5. Diabetes mellitus 6. Hypertension 7. Obstructive sleep apnea 8. Osteoarthritis 9. Right lower extremity muscle spasms Hemoglobin has dropped from 12.4 to 7.4 in approximately 36 hours with further drop anticipated in the immediate postoperative time. No clear symptoms in the absence of activities however given anticipated further drop in history cerebrovascular disease I believe it safer to proceed with transfusion now than wait till patient is compromised. One unit of packed red blood cells will be given today with 20 mg of Lasix in conjunction with blood. Flexeril added when necessary for muscle spasms. Continue to monitor hemoglobin. Sensitivities pending for gram-negative identified in urine and further identification of gram-positive organism pending. Continue Rocephin pending additional information. Blood pressure well-controlled. Blood sugars erratic in the immediate postoperative time. Resume metformin tomorrow. Resume aspirin for stroke prophylaxis. 10/28/16- *Hip fx s/p repair- per Dr. Carmen. Potential dismissal to SNU. Resume home Tramadol for pain management. Minimize narcotics as patient becomes very sonolent with them. *Chronic immobility Uses power scooter/Albert lift at home. *UTI, polyorganism Received Rocephin during her hospitalization. Continue keflex for 3 days at rehab. *ABLA- s/p transfusion. Stable. *HLD-statin *DM2- resume home metformin. Continue SSI for now as BG is a bit high. *Depression, anxiety- home Celexa. DC to SNU today Problems: (1) Subtrochanteric fracture of right femur Status: Acute (2) Fluid overload Status: Resolved (3) Constipation Status: Resolved Assessment & Plan: Discontinue laxatives. (4) Anxiety and depression Status: Chronic (5) Hypertension Status: Acute (6) Fall Status: Acute (7) CVA, old, hemiparesis Status: Chronic (8) DM type 2 (diabetes mellitus, type 2) Status: Chronic (9) HLD (hyperlipidemia) Status: Chronic (10) UTI (urinary tract infection) Status: Acute Assessment & Plan: MICROBIOLOGY URINE CULTURE. Final 10/28/16-0750 Organism 1 ESCHERICHIA COLI COLONY COUNT >100,000 CFU/ml Organism 2 ALPHA-HEMOLYTIC STREPTOCOCCUS COLONY COUNT 10,000 - 50,000 CFU/ml ORGANISM COMMENT: NO SENSITIVITY PERFORMED E COLI INTERP ANGELES ------ --------- AMOX/CLAV ACID S <=2 AMPICILLIN S <=2 CEFAZOLIN S <=4 CEFEPIME S <=1 CEFTAZIDIME S <=1 CEFTRIAXONE S <=1 CIPROFLOXACIN S <=0.25 ERTAPENEM S <=0.5 GENTAMICIN S <=1 LEVOFLOXACIN S <=0.12 NITROFURANTOIN S <=16 TOBRAMYCIN S <=1 TRIMETH/SULFA S <=20 PIPERACILL/TAZO S <=4 (11) Acute blood loss anemia Status: Acute Code Status Do Not Resuscitate Home Meds Active Scripts Enoxaparin Sodium (Lovenox) 40 Mg/0.4 Ml Inj, 40 MG SQ Q24H for 30 Days Prov:HERNANDO GALEANO MD 10/30/16 Cephalexin (Keflex) 500 Mg Capsule, 1 CAP PO TID for 3 Days, #9 CAP Prov:HERNANDO GALEANO MD 10/30/16 Reported Medications Cyclobenzaprine HCl (Cyclobenzaprine HCl) 5 Mg Tablet, 5 MG PO HS 10/25/16 Atorvastatin Calcium (Atorvastatin Calcium) 80 Mg Tablet, 80 MG PO HS 10/25/16 Acetaminophen (Acetaminophen) 650 Mg Tablet.er, 650 MG PO HS 10/25/16 Aspirin (Aspirin) 325 Mg Tablet, 325 MG PO DAILY 10/25/16 Citalopram Hydrobromide (Citalopram HBr) 20 Mg Tablet, 20 MG PO DAILY 10/25/16 Tramadol HCl (Tramadol HCl) 50 Mg Tablet, 100 MG PO DAILY Y for PAIN/AIR HUNGER 06/22/14 Metformin HCl (Metformin HCl) 500 Mg Tablet, 500 MG PO BIDWM 06/22/14 Face to Face Encounter I met with patient on the day of dismissal and discussed follow up appointments , medications, and safety plan. Discharge Disposition HERNANDO Galvez MD October 30, 2016 11:48
--- NOTE | 2016-10-30 11:52 | NUR ---
HUGH CM IN TO VISIT WITH PT, SPOUSE, SON, AND CAREGIVERS. DR. MCKINNON IS PRESENT. HUGH AND VISIT ABOUT PT MEETING DC CRITERIA. THEY VERBALIZED UNDERSTANDING THAT PT IS READY FOR DC TODAY. PT VERBALIZED THAT SHE WOULD LIKE TO DC TO [facility] FOR [facility]F. FAMILY IS REASSURED AND CM EXPLAINS HER ROLE IN TRANSITION OF CARE.
[2016-10-30] MEDS ORDERED: FURO40TA5 PO (12:13)
[2016-10-30] MEDS ORDERED: TRAM50TA53 PO (12:13)
[2016-10-30 12:27] VITALS: BP 132/62; PULSE 90; RESP 16; TEMP 98.9; O2SAT 94
--- NOTE | 2016-10-30 13:55 | NUR ---
Discharge Pt transferred to wheelchair at this time with a full lift. Pt transported [facility], family present at time of discharge. IV catheter DC'd, catheter tip intact. Pruitt catheter DC'd. Pt A&OX3. Discharge packet and instructions sent with vp transportation. Report called to [facility]. Personal belongings sent with Pt.
== END 2016-10-30 13:55 | DRG 481 ==
LOC: ED 19:07 → EDHOLD 20:21 → SRG 21:45
PROVIDERS: ADMIT Internal Medicine; ATTEND Internal Medicine
PROC: 0QS634Z Reposition Right Upper Femur with Internal Fixation Device, Percutaneous Approach (ICD-10-PCS; principal; 2016-10-26 12:49)
PROC: 30233N1 Transfusion of Nonautologous Red Blood Cells into Peripheral Vein, Percutaneous Approach (ICD-10-PCS; 2016-10-27)
DX: S72.21XA Displaced subtrochanteric fracture of right femur, initial encounter for closed fracture (principal); N39.0 Urinary tract infection, site not specified; I69.951 Hemiplegia and hemiparesis following unspecified cerebrovascular disease affecting right dominant side; D62 Acute posthemorrhagic anemia; E11.9 Type 2 diabetes mellitus without complications; I10 Essential (primary) hypertension; Z66 Do not resuscitate; E87.79 Other fluid overload; G47.33 Obstructive sleep apnea (adult) (pediatric); G89.29 Other chronic pain; M54.5 Low back pain; E78.5 Hyperlipidemia, unspecified; M19.91 Primary osteoarthritis, unspecified site; Z79.82 Long term (current) use of aspirin; Z79.84 Long term (current) use of oral hypoglycemic drugs; V00.811A Fall from moving wheelchair (powered), initial encounter; Y93.K9 Activity, other involving animal care; Y92.007 Garden or yard of unspecified non-institutional (private) residence as the place of occurrence of the external cause; Y99.8 Other external cause status
CPT/HCPCS: 36415; 51702; 80048; 80053; 80069; 81001; 82948; 85018; 85025; 85027; 85610; 86850; 86900; 86901; 86922; 87086; 87088; 87186; 87493; 93005

== ENCOUNTER 2017-07-06 23:27 | Inpatient (IN) ==
[2017-07-06] MEDS ORDERED: NS 1,000 ML IV ONE (23:35)
[2017-07-07] MEDS: SALINE FLUSH 10ml SYRINGE IVF PRN ×2 (00:02→21:29)
--- NOTE | 2017-07-07 00:22 | Emergency Department Report ---
Nausea/Vomiting/Diarrhea HPI - General Chief complaint: Nausea/Vomiting/Diarrhea Stated complaint: nausea Time Seen by Provider: 07/06/17 23:34 Source: patient, EMS Mode of arrival: EMS Limitations: no limitations - History of Present Illness HPI Narrative: Patient has had 30 day history of periodic vomiting. Progressively worsening, becoming more frequent and more severe. Emesis tends to be brown," just rolls out of her mouth." Patient was seen several times by her primary care physician in [place], and was actually seen in the ER yesterday for the same symptoms. At that time. No treatment was offered, but she had been given one single tablet of Zofran ODT. The day before. Last night the patient was observed apparently for some time, felt better, and when offered to stay in the hospital or go home, the patient elected to go home. Patient was not given any medications or fluids in the ER, but did have a lab draw, which apparently showed mild elevation in white blood cells and elevated liver enzymes. Patient was scheduled for an outpatient sonogram which she had done today, that showed moderate accumulation of gallstones, but no obvious obstruction. Currently the patient states that she is unable to tolerate anything liquid or solid, and her right upper quadrant/epigastric pain had worsened. - Related Data Home Medications Medication Instructions Recorded Confirmed Atorvastatin Calcium 80 mg PO HS #0 10/25/16 07/07/17 Cyclobenzaprine HCl 5 mg PO DAILY #0 10/25/16 07/07/17 Acetaminophen [Acetaminophen Extra 500 mg PO Q4H PRN 05/30/17 07/07/17 Strength] Aspirin [Adult Low Dose Aspirin EC] 81 mg PO DAILY 05/30/17 07/07/17 Citalopram [Celexa] 10 mg PO DAILY 05/30/17 07/07/17 Metformin [Glucophage] 1,000 mg PO BID 05/30/17 07/07/17 Ondansetron [Zofran Odt] 1 tab PO Q6H PRN 07/07/17 07/07/17 Sitagliptin [Januvia] 100 mg PO DAILY PRN 07/07/17 07/07/17 Allergies Allergy/AdvReac Type Severity Reaction Status Date / Time No Known Allergies Allergy Verified 05/30/17 17:34 Review of Systems All systems: reviewed and negative except as stated PFSH Patient Stated Medical History Cerebrovascular Accident Yes: 2016 Cataracts Yes Hypertension Yes Pneumonia Yes Sleep Apnea Yes Diabetes Mellitus Type 2 Yes Gastroesophageal Reflux Yes Disease Clinic Medical History (Last Reviewed 04/16/17 @ 12:20 by ROBERTO Ocasio) Fracture, subtrochanteric, right femur, closed (Acute Medical) Obstructive sleep apnea (Chronic Medical) Stroke (Chronic Medical) Depression (Chronic Medical) GERD (gastroesophageal reflux disease) (Chronic Medical) Diabetes (Chronic Medical) 2015. Patient has a large CVA with persistent right-sided weakness, and some confusion. Surgical History: Fx Rt femur 10/26/16 Rt Meniscus tear Family History: Family History (Last Reviewed 04/16/17 @ 12:20 by ROBERTO Ocasio) Mother Arthritis Heart attack Father Stroke - Social History Smoking status: Never smoker Physical Exam - Limitations Limitations: no limitations - General General appearance: alert - Normal Exams: Head:: Normocephalic without trauma Eyes:: Pupils are PERRLA w/ EOMI, No scleral icterus, irritation, or foreign bodies noted ENMT:: No facial trauma, nasal exudates, pharyngeal erythema, or exudates are noted Neck:: Full range of motion, without adenopathy, JVD, bruits or thyromegaly Chest/Respirations:: Clear all [place], with good airflow, and symmetry bilaterally Cardiovascular:: Regular rate and rhythm, without murmur or gallop, Pulses 2+ all extremities, capillary refill, <2 seconds all extremities Lymphatic:: No lymphadenopathy, or lymphedema noted Musculoskeletal:: No tenderness, or deformity noted, good range of motion, all extremities Integumentary:: No rashes, hives, or bruising noted, hair and nails, without abnormality Neurological:: Patient is alert, and oriented, cranial nerves, motor/sensory/ cerebellar, exams w/o gross deficits, to observation Psychiatric:: Patient exhibits, appropriate attention, emotion and affect - Abdominal Exam Abdominal exam: Present: soft, tenderness (mild epigastric and right quadrant tenderness, no rebounding, no guarding), diminished bowel sounds. Absent: distention, guarding, rebound, rigidity, hyperactive bowel sounds, hypoactive bowel sounds, trauma, incision, psoas sign, obturator sign, Shearer's sign, Rovsing's sign, tenderness at McBurney's Point, mass, bruit, pulsatile mass, hernia Course Vital Signs Temperature 97.9 F 07/06/17 23:31 Pulse Rate 112 H 07/06/17 23:31 Respiratory Rate 17 07/06/17 23:31 Blood Pressure 162/77 H 07/06/17 23:31 Pulse Oximetry 92 07/06/17 23:31 Temperature 97.9 F 07/06/17 23:31 Pulse Rate 104 H 07/07/17 01:00 Respiratory Rate 20 07/07/17 01:00 Blood Pressure 146/65 H 07/07/17 01:00 Pulse Oximetry 95 07/07/17 01:00 Nausea/Vomiting/Diarrhea - [facility] Narrative Medical decision making narrative: Patient given 1 L normal saline IV fluid bolus. Patient declines further medication for pain or nausea. As her symptoms have significantly improved after 4 mg, Reglan in route. CBC - elevated white blood cell count with minimal left shift CMP/L - elevated liver enzymes in the 400s, bilirubin elevated, and lipase significant elevated at 1776 Patient is feeling much better after fluids and antinausea medicine given in route. Lab comparisons from 12 hours ago show slight improvement in white blood cell count, slight improvement in bilirubin and liver enzymes, lipase was not evaluated Review of the sonogram shows gallstones but no evidence of ezequiel obstruction. Case is discussed with Dr. Colvin, and Dr. Turcios, we will admit for pancreatitis, and consult Dr. Colvin for possible EGD versus cholecystectomy as needed. - Lab Data Result diagrams: 07/07/17 00:12 07/07/17 00:12 Lab Results 07/07/17 07/07/17 07/07/17 Range/Units 00:12 00:12 01:07 WBC 20.8 H (4.5-11.0) T/MM3 RBC 3.40 L (4.00-5.20) M/MM3 Hgb 10.6 L (12-16) GM/DL Hct 33.6 L (36-46) % MCV 98.8 (80-100) UM3 MCH 31.2 (26-34) UUG MCHC 31.5 (31-37) GM/DL RDW Std Deviation 48.2 (36.9-50.2) FL Plt Count 230 (130-400) T/MM3 MPV 12.5 H (9.4-12.4) UM3 Immature Gran % (Auto) Not performed Neut % (Auto) Not performed Lymph % (Auto) Not performed [place] % (Auto) Not performed Eos % (Auto) Not performed Baso % (Auto) Not performed Neut # (Auto) Not performed Lymph # (Auto) Not performed [place] # (Auto) Not performed Eos # (Auto) Not performed Baso # (Auto) Not performed Abs Immat Gran (auto) Not performed Neutrophils % (Manual) 88.0 H (33-66) % Band Neutrophils % 4.0 (0-6) % Lymphocytes % (Manual) 6.0 L (23-45) % Monocytes % (Manual) 2.0 (0-9.0) % Neutrophils # (Manual) 18.3 H (1.8-7.7) T/MM3 Band Neutrophils # 0.8 T/MM3 Lymphocytes # (Manual) 1.2 (1-4.8) T/MM3 Monocytes # (Manual) 0.4 (0-0.8) T/MM3 RBC Morph Comment Normal Turbidity < 20 (0-20) Sodium 141 (134-144) MEQ/L Potassium 4.2 (3.6-5) MEQ/L Chloride 102 (98-107) MEQ/L Carbon Dioxide 23 (22-30) MEQ/L Anion Gap 16 H (5-15) MEQ/L BUN 25.0 H (7-17) MG/DL Creatinine 1.6 H D (0.7-1.2) MG/DL GFR Calculation 31 BUN/Creatinine Ratio 16 (6-26) RATIO Glucose 167 H (65-110) MG/DL Calculated Osmolality 279 (261-280) MOSM/KG Calcium 9.0 (8.4-10.2) MG/DL Total Bilirubin 4.10 H (0.20-1.30) MG/DL Conjugated Bilirubin 2.00 H (0.00-0.30) MG/DL Unconjugated Bilirubin 0.60 (0.00-1.1) MG/DL Icterus Index < 2 (0-7) AST 405 H (14-36) U/L ALT 404 H (9-52) U/L Alkaline Phosphatase 308 H (38-126) U/L Total Protein 7.9 (6.3-8.2) G/DL Albumin 4.2 (3.5-5.0) G/DL Globulin 3.7 H (2.4-3.6) G/DL Albumin/Globulin Ratio 1.1 (1.1-2.2) RATIO Lipase 1776 H (23-300) U/L Specimen Hemolysis < 15 (0-25) Ur Collection Type Urine, catheter Urine Color Yellow (YELLOW) Urine Clarity Sl cloudy Urine pH 6.0 (5.0-8.0) Ur Specific [place] 1.025 (1.015-1.025) Urine Protein 1+ A (NEGATIVE) Urine Glucose (UA) Negative (NEGATIVE) Urine Ketones Trace A (NEGATIVE) Urine Occult Blood 1+ A (NEGATIVE) Urine Nitrate Positive A (NEGATIVE) Urine Bilirubin 2+ A (NEGATIVE) Urine Urobilinogen 1.0 (NORMAL) EU/DL Ur Leukocyte Esterase Negative (NEGATIVE) Urine RBC 1-3 (0-3) /HPF Urine WBC 1-3 (0-5) /HPF Urine Bacteria 1+ H (NEGATIVE) Ur Culture Indicated? Cult reflexed &setup Disposition Clinical Impression: Pancreatitis Qualifiers: Chronicity: acute Pancreatitis type: unspecified pancreatitis type Acute pancreatitis complication: unspecified Qualified Code(s): K85.90 - Acute pancreatitis without necrosis or infection, unspecified Disposition: Discharged Home, Self-Care Condition: Improved Prescriptions: No Action Atorvastatin Calcium 80 mg PO HS #0 Cyclobenzaprine HCl 5 mg PO DAILY #0 Aspirin [Adult Low Dose Aspirin EC] 81 mg PO DAILY Citalopram [Celexa] 10 mg PO DAILY Acetaminophen [Acetaminophen Extra Strength] 500 mg PO Q4H PRN PRN Reason: Pain Ondansetron [Zofran Odt] 1 tab PO Q6H PRN PRN Reason: Nausea Metformin [Glucophage] 1,000 mg PO BID Sitagliptin [Januvia] 100 mg PO DAILY PRN PRN Reason: Hyperglycemia Referrals: Kendra Morales MD [Family Provider] - - Seen By: physician
[2017-07-07] MEDS ORDERED: PIPERACILLIN/TAZOBACTAM 3.375 GM in NS 100 ML IV ONE (01:51)
--- NOTE | 2017-07-07 02:05 | History & Physical Report ---
History of Present Illness Date: 07/07/17 Chief complaint: nausea/vomiting HPI: Pleasant 87 year old female PTER with N/V. I discussed with patient and also with ER DR who provided info from outside hospital. She has been having brown/bilious emesis intermittently for about 1 month, increasing episodes, now to daily. She says she is a person who tries to avoid going to drs so waitied until it got much worse/this bad to be seen. Was seen in [employer] on , labs drawn eval'd and got outpatient sono. I believe ordering physician d/w Dr Colvin. GB US showed gallstones but reportedly no CBD dilatation noted. Was offered admit last kaitlin but was feeling ok so declined. Returned tonight when n/v worse. Aslo with soem intermittent diarrhea. She denied abd pain to me but told ER had RUQ pain. She denies fever chills. She does not drink alcohol. Has never had abdominal surgery, EGD or colonoscopy. In ER she got fluids and I asked for zosyn to be administered. Dr Rodriguez spoke w Dr Colvin who agreed would consult. Review of Systems All systems PM: 10-point ROS was reviewed, no additional remarkable complaints except Past Medical History Patient Stated Medical History Cerebrovascular Accident Yes: 2016 Cataracts Yes Hypertension Yes Pneumonia Yes Sleep Apnea Yes Diabetes Mellitus Type 2 Yes Gastroesophageal Reflux Yes Disease Clinic Medical History (Last Reviewed 04/16/17 @ 12:20 by ROBERTO Ocasio) Fracture, subtrochanteric, right femur, closed (Acute Medical) Obstructive sleep apnea (Chronic Medical) Stroke (Chronic Medical) Depression (Chronic Medical) GERD (gastroesophageal reflux disease) (Chronic Medical) Diabetes (Chronic Medical) Surgical History: Fx Rt femur 10/26/16 Rt Meniscus tear Family History: Family History (Last Reviewed 04/16/17 @ 12:20 by ROBERTO Ocasio) Mother Arthritis Heart attack Father Stroke Family History Updates: nc based on age - Social History Smoking status: Never smoker Alcohol intake frequency: does not drink Housing: house Household members: spouse service: No Current occupational status: retired Medications Home Medications Medication Instructions Recorded Confirmed Type Atorvastatin Calcium 80 mg PO HS #0 10/25/16 07/07/17 History Cyclobenzaprine HCl 5 mg PO DAILY #0 10/25/16 07/07/17 History Acetaminophen [Acetaminophen Extra 500 mg PO Q4H PRN 05/30/17 07/07/17 History Strength] Aspirin [Adult Low Dose Aspirin EC] 81 mg PO DAILY 05/30/17 07/07/17 History Citalopram [Celexa] 10 mg PO DAILY 05/30/17 07/07/17 History Metformin [Glucophage] 1,000 mg PO BID 05/30/17 07/07/17 History Ondansetron [Zofran Odt] 1 tab PO Q6H PRN 07/07/17 07/07/17 History Sitagliptin [Januvia] 100 mg PO DAILY PRN 07/07/17 07/07/17 History Allergies Allergy/AdvReac Type Severity Reaction Status Date / Time No Known Allergies Allergy Verified 05/30/17 17:34 Exam Vital Signs: Temperature 97.9 F 07/06/17 23:31 Pulse Rate 104 H 07/07/17 01:00 Respiratory Rate 20 07/07/17 01:00 Blood Pressure 146/65 H 07/07/17 01:00 Pulse Oximetry 95 07/07/17 01:00 Height/Weight/BMI: Height 1.63 m Weight 97.6 kg Comments: She is very pleasant she appears stated age she is oriented 3 she appears mildly ill she is wearing a bit of oxygen by nasal cannula she is in no distress HEENT sclera are minimally icteric Oropharynx is dry Lungs are clear bilaterally with good air movement Cardiovascular is regular without murmur gallop or rub Abdomen is obese with mild epigastric and right upper quadrant tenderness palpation does not appear to have peritoneal signs by exam on the nurse completed Extremities no edema Results - Labs CBC & Chem 7: 07/07/17 00:12 07/07/17 00:12 Microbiology Results: Microbiology 07/07/17 01:07 Urine, Cath Straight Urine Culture - Preliminary Culture Initiated - Results Pending Assessment and Plan (1) Pancreatitis, gallstone Current visit: Yes Status: Acute (2) Cholelithiasis Current visit: Yes Status: Acute (3) Acute renal failure Current visit: Yes Status: Acute (4) Obstructive sleep apnea Current visit: No Status: Chronic (5) Depression Current visit: No Status: Chronic (6) GERD (gastroesophageal reflux disease) Current visit: No Status: Chronic (7) Diabetes Current visit: No Status: Chronic (8) Hepatitis Current visit: Yes Status: Acute Assessment and Plan: 1. acute pancreatitis - presumed from gallstones. 2. Gallstones - maybe some concern for cholangitis with leukocytosis 3. Acute AST/ALT elevation, perhpas either d/t passed stone or other, ? cholangitis 4. DM2 on oral meds lipitor and aspirin 5. WILBERT 6. GERD 7. Possible UTI - 8. Acute renal failure IV zosyn for possible cholangitis/UTI nausea and pain meds IV fluids Dr Colvin to consult in AM, probably needs GB out when pancreatitis calmed full admit DVT Prophylaxis: SCD's, Lovenox GI Prophylaxis: Pepcid - Physician Narrative Narrative: Date: 07/07/17 Time: 0201 Hospital Course Summary Disclaimer: The visit summary below is not to be considered part of the above Progress Note.
[2017-07-07] MEDS ORDERED: FAMOTIDINE PB 20 MG/50 ML BAG IV SCH (02:15)
[2017-07-07] MEDS ORDERED: ENOXAPARIN 40 MG/0.4 ML INJECTION SQ ONE (03:29)
[2017-07-07] MEDS ORDERED: DEXTROSE 50% SYRINGE 50ml (1 AMP) IVP PRN (03:29)
[2017-07-07] MEDS ORDERED: ONDANSETRON 4 MG/2 ML INJECTION IVP PRN (03:29)
[2017-07-07 04:49] VITALS: BMI 38.7
[2017-07-07] MEDS: D5-1/2NS 1,000 ML IV SCH ×3 (05:13→17:58)
[2017-07-07] MEDS: PIPERACILLIN/TAZOBACTAM 3.375 GM in NS 100 ML IV SCH ×3 (09:14→19:57)
[2017-07-07] MEDS ORDERED: IODIXANOL 320mg/ml 100ml INJECTION IV ONE ×2 (10:51→10:52)
[2017-07-07] MEDS ORDERED: SALINE FLUSH 10ml SYRINGE ONE (10:52)
[2017-07-07] MEDS ORDERED: NS 100 ML ONE (10:52)
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
--- NOTE | 2017-07-07 11:58 | Progress Note ---
- Date 07/07/17 Subjective: 87 y/o female presented to the ED with N/V. She has been having brown/bilious emesis intermittently for about 1 month, increasing episodes, now to daily. She says she is a person who tries to avoid going to drs so waitied until it got much worse/this bad to be seen. Was seen in [place] on , labs drawn, eval'd and got outpatient sono. I believe ordering physician d/w Dr Colvin. GB US showed gallstones but reportedly no CBD dilatation noted. Was offered admit last kaitlin but was feeling ok so declined. Returned tonight when n/v worse. Also with some intermittent diarrhea. She denied abd pain to me but told ER had RUQ pain. She denies fever or chills. She does not drink alcohol. Has never had abdominal surgery, EGD or colonoscopy. In ER she got fluids and I asked for zosyn to be administered. Dr Rodriguez spoke w Dr Colvin who agreed would consult. This morning she really denies any abdominal pain. She denies nausea. Her lipase was elevated. Her AST, ALT and Alk Phos were elevated but they are all trending down today. She denies any pain at all. Her right lower extremity is in a splint. As this does have apparently a fracture in 2 places. No surgeries planned at this time. She does not ambulate even prior to her leg fracture due to her right side paralysis from her stroke. She does however have movement in both the upper and lower extremities on the right side. She is currently wearing oxygen via nasal cannula 2 L setting 96%. She is on oxygen at home. She does have sleep apnea and is compliant with her CPAP. She denies feeling shortness of breath. She denies any chest discomfort or palpitations. She denies lightheadedness or dizziness. She denies abdominal pain. She has not had a bowel movement here that she is passing gas. Objective Vital signs: Temperature 98.8 F 07/07/17 09:53 Pulse Rate 87 07/07/17 09:53 Respiratory Rate 18 07/07/17 09:53 Blood Pressure 148/60 H 07/07/17 09:53 Pulse Oximetry 96 07/07/17 11:25 Height/Weight/BMI: Height 1.6 m Weight 98.9 kg Body Mass Index 38.7 Comments: Gen: alert and oriented. NAD Skin: warm and dry HEENT: NC/AT PERRL, EOMI, Sclera, lids and conjunctiva wnl. MMM. OP clear. Neck: No JVD, Carotids 2+ without bruits Lungs: clear. No rales, rhonchi or wheezes CV: regular. No murmur, rub or gallop Abd: Obese, soft. +BS. NT/ND MS: No edema. SCDs in place. Good strength and ROM Neuro: No focal deficits Results - Labs CBC & Chem 7: 07/07/17 06:39 07/07/17 06:39 Assessment and Plan (1) Diabetes Current visit: No Status: Chronic (2) GERD (gastroesophageal reflux disease) Current visit: No Status: Chronic (3) Depression Current visit: No Status: Chronic (4) Obstructive sleep apnea Current visit: No Status: Chronic (5) Pancreatitis, gallstone Current visit: Yes Status: Acute (6) Cholelithiasis Current visit: Yes Status: Acute (7) Hepatitis Current visit: Yes Status: Acute (8) Acute renal failure Current visit: Yes Status: Acute Assessment and Plan: 1. acute pancreatitis - presumed from gallstones. -Dr. Colvni consulted and there is no plan at this time for intervention -Start clear liquids and ADAT -Follow symptoms and lipase -CT of abd with oral contrast ordered today. 2. Gallstones -No evidence of U/S of cholecystitis -Probably will need Cholecystectomy at some point as outpt. 3. Acute AST/ALT/Alk Phos elevation -perhaps either d/t passed stone or other, ?cholangitis -Trending down -Hepatitis panel ordered 4. DM2 -On oral meds as well as lipitor and aspirin 5. WILBERT -CPAP 6. GERD -PPI 7. Possible UTI -Cx pending -On Zosyn 8. Acute renal failure -Likely due to dehydration -IVF -Improved today, follow 9. Prophylaxis -Lovenox and PPI - Physician Narrative Physician: Kamila Stephen MD Narrative: Date: 07/07/17 Time: 1152 Hospital Course Summary Disclaimer: The visit summary below is not to be considered part of the above Progress Note.
[2017-07-07] MEDS ORDERED: ENOXAPARIN 40 MG/0.4 ML INJECTION SQ SCH (12:15)
[2017-07-07] MEDS: HYDROMORPHONE 2 MG/ML INJECTION IVP PRN (19:46)
[2017-07-07] MEDS: INSULIN ASPART 100unit/ml INJECTION SQ PRN (21:27)
[2017-07-08] MEDS: HYDROMORPHONE 2 MG/ML INJECTION IVP PRN ×3 (00:07→20:16)
[2017-07-08] MEDS: PIPERACILLIN/TAZOBACTAM 3.375 GM in NS 100 ML IV SCH ×4 (02:40→19:20)
[2017-07-08] MEDS: PANTOPRAZOLE 40 MG TABLET PO SCH (06:11)
[2017-07-08] MEDS: D5-1/2NS 1,000 ML IV SCH (08:00)
[2017-07-08] MEDS: ENOXAPARIN 40 MG/0.4 ML INJECTION SQ SCH ×2 (08:14→08:20)
[2017-07-08] MEDS ORDERED: ENOXAPARIN 40 MG/0.4 ML INJECTION SQ SCH (09:00)
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
--- NOTE | 2017-07-08 10:08 | CT Scan Report ---
Indication: hx N/Ving, increased LFT's, pancreatitis PROCEDURE: CT abdomen pelvis w con: Encounter: Initial Comparison: Gallbladder ultrasound dated July 06, 2017 Technique: Axial CT images were performed through the abdomen and pelvis after the administration of intravenous contrast. Coronal and sagittal two-dimensional reformats. Automated Exposure Control and Iterative Reconstruction dose reducing techniques were utilized. Contrast: Visipaque 320 88 mL Findings: Mild atelectasis in the lower lobes. Heart is mildly enlarged. The liver is fatty infiltrated without enhancing lesion or bile duct dilatation. Gallstones noted within the gallbladder without obvious adjacent inflammation or fluid. Evaluation is somewhat limited due to motion artifact in this area. The spleen is normal. The pancreas appears normal. The adrenal glands and kidneys are within normal limits. No abdominal or pelvic lymphadenopathy. Bladder is normal. Uterus is unremarkable. No free fluid or evidence of a bowel obstruction. The appendix is normal. Bone windows show right femoral hardware with bony demineralization, degenerative change and scoliosis in the lumbar spine. Chronic appearing L1 compression fracture. Impression: 1. No acute disease process seen in the abdomen or pelvis. 2. Cholelithiasis. 3. Hepatic steatosis. There is a preliminary report by [facility] radiologic. .
[2017-07-08] MEDS: CYCLOBENZAPRINE 5 MG TABLET PO SCH ×2 (10:18→16:46)
[2017-07-08] MEDS: CITALOPRAM 10 MG TABLET PO SCH (10:18)
[2017-07-08] MEDS: ASPIRIN *EC* 81 MG TABLET PO SCH (10:18)
[2017-07-08] MEDS: POLYETHYL GLYCOL 3350 17gm PACKET PO SCH (10:18)
[2017-07-08] MEDS: SENNA + DOCUSATE TABLET PO SCH (10:19)
[2017-07-08] MEDS: INSULIN ASPART 100unit/ml INJECTION SQ PRN ×2 (11:31→17:53)
[2017-07-08] MEDS: AMLODIPINE 5 MG TABLET PO SCH (15:49)
[2017-07-08] MEDS ORDERED: CYCLOBENZAPRINE 5 MG TABLET PO ONE (16:45)
[2017-07-08] MEDS ORDERED: NON-FORMULARY MEDICATION 1 EACH EACH (Atorvastatin Calcium [Atorvastatin Calcium] 80 MG) PO SCH (21:00)
[2017-07-09] MEDS: PIPERACILLIN/TAZOBACTAM 3.375 GM in NS 100 ML IV SCH ×3 (03:04→15:17)
[2017-07-09] MEDS: HYDROMORPHONE 2 MG/ML INJECTION IVP PRN (03:39)
[2017-07-09] MEDS: PANTOPRAZOLE 40 MG TABLET PO SCH (06:16)
--- NOTE | 2017-07-09 07:59 | Progress Note ---
DATE 07/08/2016 FINDINGS Mrs. Mueller states that overall she is feeling better than yesterday. She still does not "feel completely well." VITALS: Afebrile. Normotensive. Current vitals include temperature 97.9, pulse 83, respirations 16, blood pressure 142/68, SaO2 93% on room air. HEENT: Normocephalic. Pupils are equal, round and reactive to light and accommodation. CHEST: Clear to auscultation bilaterally. HEART: Regular rate and rhythm. Normal S1 and S2 without gallops, murmurs or clicks. ABDOMEN: Palpation of the abdomen reveals it to be soft and completely nontender. No evidence for guarding or rebound. LABORATORY/RADIOGRAPH EVALUATION The patient had a CMP today and her potassium is slightly low at 3.3. Her bilirubin, fortunately, is on a downward trend at 1.5. AST, ALT and alk phos are improved at 196, 261 and 265. Lipase is improved at 168. ASSESSMENT 87-year-old female with increased liver function tests, positive UA, history for nausea and vomiting, history for pancreatitis with elevation of lipase level. The patient has made marked improvement since admission. PLAN I still believe patient is without an acute surgical entity at this time. Would recommend that we continue with current care. I do see that her diet has been advanced to a low fat diet. If the patient is able to tolerate a regular diet and her liver function tests continue to improve, I do believe that she can likely be discharged within the next 24-48 hours. I informed the patient at this time I would not recommend any surgical intervention and would recommend that we follow her from a clinical standpoint. If she would have recurrence of her symptomatology in the future or begin to develop biliary colic -like symptomatology, then at that time would recommend proceeding with cholecystectomy. The above plan was discussed with the patient and her this morning. They understood and agreed. MARCEL
--- NOTE | 2017-07-09 09:49 | Progress Note ---
- Date 07/09/17 Subjective: Alycia was eating breakfast consisting of vasquez and toast. She denied any abdominal pain or nausea. She reports that she's been having bowel movements, but there have been none documented. She denies any chest pain or shortness of breath. However, she has been confused and paranoid. Last night she became belligerent and was using profanity, which is unlike her. Her reports that she does not have confusion on a regular basis. This morning, she told the nursing home aide that she thought her RN was trying to kill her. She also does not know where she is. Objective Vital signs: Temperature 97.5 F 07/09/17 08:21 Pulse Rate 90 07/09/17 08:21 Respiratory Rate 16 07/09/17 08:21 Blood Pressure 145/61 H 07/09/17 08:21 Pulse Oximetry 92 07/09/17 08:21 Height/Weight/BMI: Height 1.6 m Weight 100.5 kg Body Mass Index 38.7 - Constitutional Present: no acute distress, well nourished, well developed, obese - Routine HEENT Exam Head: Present: normocephalic Eye: Absent: conjunctival icterus, scleral injection - Routine Respiratory Exam Present: CTA bilaterally - Routine Cardiovascular Exam Present: RRR, S1, S2 - Routine Abdominal Exam Present: soft, normoactive bowel sounds, non distended, non tender - Routine Musculoskeletal Exam Musculoskeletal: Present: other (knee immobilizer, right leg) - Routine Skin Exam Present: dry, warm - Routine Neurological Exam Present: alert, altered mental status. Absent: oriented X3 - Routine Psychiatric Exam Present: cooperative Results - Labs CBC & Chem 7: 07/09/17 04:06 07/09/17 04:06 Assessment and Plan (1) Pancreatitis, gallstone Current visit: Yes Status: Acute (2) Cholelithiasis Current visit: Yes Status: Acute (3) Hepatitis Current visit: Yes Status: Acute (4) Acute renal failure Current visit: Yes Status: Acute Assessment and Plan: Impression Acute gallstone pancreatitis, resolved Acute hepatitis secondary to above, improving Acute kidney injury, suspect prerenal, resolved Escherichia coli UTI, pansensitive Hypokalemia, not present on admission, resolved Acute encephalopathy Type II diabetes Anemia, suspect chronic Obstructive sleep apnea, on CPAP GERD Constipation Plan Acute pancreatitis - presumed from gallstones. -Tolerating advanced diet well -Abdominal symptoms have resolved, liver enzymes are trending down, lipase has normalized -Dr. Colvin has been consulted - she may need outpatient cholecystectomy Acute AST/ALT/Alk Phos elevation -perhaps d/t passed stone -Trending down -Hepatitis panel pending Escherichia coli UTI, pansensitive -Increasing encephalopathy, with belligerence and paranoia - consider psychiatric consult -Has been on Zosyn since 07/07/17 -Will discontinue centrally acting medications including Dilaudid and Flexeril - last received Dilaudid around 0330 this morning Acute kidney injury -Resolved with IV fluids -Creatinine 0.8 Anemia -Iron level is 48, TIBC 259, percent sat 19 -Stool for occult blood pending DVT Prophylaxis: Lovenox GI Prophylaxis: Protonix Resuscitation Status: Full Code - Physician Narrative Physician: Lilibeth Villalba MD Narrative: Date: 07/09/17 Time: 2044 I have independently evaluated and examined this patient. I reviewed the chart, the patient's history, and the TYING IN MACHINE OPERATOR/PA's documented findings as above. We discussed and formulated the assessment and plan as above with additions as below: Mrs. Mueller was seen with home caregiver at the bedside earlier today. The patient denied any concerns and was calm when I saw her. Her caregiver reports that she's been intolerant of narcotics in the past and that they're using Tylenol for control of her leg pain and tramadol when Tylenol doesn't work. She tolerates Flexeril for muscle spasms as long as she doesn't get it regularly but became confused when she was receiving at 3 times a day. Patient denies abdominal pain; her caregiver reports oral intake is poor which is confirmed by nursing. Patient reports she simply doesn't have a very good appetite right now. NAD, alert, cooperative, calm at present Conjunctiva clear, sclera anicteric Respirations nonlabored, decreased airflow, breath sounds clear Abdomen benign, no tenderness in the right upper quadrant Patient is oriented to the hospital by believe she is in [place]; could not identify the year Liver enzymes improving, bilirubin has normalized. Resume Tylenol and tramadol when necessary; narcotics discontinued earlier today to minimize delirium. Discontinue Zosyn; amoxicillin for UTI. Caregiver provides bulk of history. Hospital Course Summary Disclaimer: The visit summary below is not to be considered part of the above Progress Note. Hospital Course: Patient was admitted on 07/07/17 with gallstone pancreatitis and acute kidney injury. She was started on IV Zosyn and IV fluids for a creatinine level of 1.6. Her renal failure was attributed to dehydration. Analgesics and antiemetics were available for symptom control. Dr. Colvin was consulted, and recommended a hepatitis panel and CT scan of her abdomen and pelvis. CT scan showed cholelithiasis without obvious inflammation or fluid. It also showed hepatic steatosis. Over the following few days, her lipase normalized and her liver functions trended down. Her diet was advanced from nothing by mouth to clear liquids and then 12, low-fat diet, which was well-tolerated by 07/09/17. Urine culture grew out pansensitive Escherichia coli. She was mildly anemic, and iron studies were obtained. Iron level was 48, TIBC 259, % saturation = 19. On 07/08/17, the patient became more encephalopathic with belligerence, and on 07/09/17, she was paranoid, thinking that the RN was trying to kill her. Dilaudid and Flexeril were discontinued, in the event that these medications were contributing to her encephalopathy.
[2017-07-09] MEDS: AMLODIPINE 5 MG TABLET PO SCH (09:55)
[2017-07-09] MEDS: ENOXAPARIN 40 MG/0.4 ML INJECTION SQ SCH (09:55)
[2017-07-09] MEDS: CITALOPRAM 10 MG TABLET PO SCH (09:55)
[2017-07-09] MEDS: ASPIRIN *EC* 81 MG TABLET PO SCH (09:55)
[2017-07-09] MEDS: SENNA + DOCUSATE TABLET PO SCH ×2 (09:55→20:54)
[2017-07-09] MEDS: POLYETHYL GLYCOL 3350 17gm PACKET PO SCH ×3 (09:56→11:24)
[2017-07-09] MEDS ORDERED: BISACODYL 10 MG SUPPOSITORY RECTALLY PRN (10:00)
[2017-07-09] MEDS: CYCLOBENZAPRINE 5 MG TABLET PO SCH (11:50)
--- NOTE | 2017-07-09 15:25 | Progress Note ---
DATE 07/09/2017 FINDINGS Mrs. Mueller this morning denied significant abdominal pain. She stated that she has been having problems with her "bowels." She was requesting something to help her "bowels move." VITALS: Afebrile. Normotensive. Please refer to EMR. Last recorded vitals include temperature 97.5, pulse 90, respirations 16, blood pressure 145/61, SaO2 92% on room air. HEENT: Normocephalic. Pupils are equal, round and reactive to light and accommodation. CHEST: Clear to auscultation bilaterally. HEART: Regular rate and rhythm. Normal S1 and S2 without gallops, murmurs or clicks. ABDOMEN: Palpation of the abdomen reveals it to be completely soft and nontender. No evidence for guarding or rebound. No element of tenderness within the right upper quadrant. LABORATORY/RADIOGRAPH EVALUATION The patient had a CMP today and her AST, ALT, alk phos continue to improve. Total bilirubin is also now down to normal at 1.1. The patient is without significant electrolyte abnormalities. A CBC was obtained and found to be stable without marked abnormalities. Hemoglobin is stable but low at 9.8. ASSESSMENT 87-year-old female with a presentation of nausea, vomiting, increased liver function tests. The patient has made marked improvement since admission. The patient appears to be without acute surgical process. PLAN Hepatitis serology is still pending. This was a "batch run" and will likely be run today. From a general surgical standpoint, it would be my thought the patient could be discharged to home. Would not recommend any need for surgical intervention unless she would have recurrent elevation of her liver function tests/pancreatitis. The patient does not need to follow up with me in the office unless there are further concerns. She should return back to her PCP for her ongoing medical care. We will notify the patient of her pending hepatitis serology. Will go ahead and give the patient some milk of magnesia and prune juice today to facilitate bowel movement. MARCEL
[2017-07-09] MEDS ORDERED: ACETAMINOPHEN 500 MG TABLET PO PRN (19:46)
[2017-07-09] MEDS ORDERED: TRAMADOL 50 MG TABLET PO PRN (19:47)
[2017-07-09] MEDS: INSULIN ASPART 100unit/ml INJECTION SQ PRN (20:56)
[2017-07-09] MEDS: AMOXICILLIN 500 MG CAPSULE PO SCH (21:03)
[2017-07-10] MEDS ORDERED: AMOXICILLIN 500 MG CAPSULE PO SCH (01:00)
[2017-07-10] MEDS: PANTOPRAZOLE 40 MG TABLET PO SCH (05:50)
[2017-07-10] MEDS: AMOXICILLIN 500 MG CAPSULE PO SCH ×3 (05:50→08:35)
[2017-07-10 07:25] VITALS: RESP 18
[2017-07-10] MEDS: AMLODIPINE 5 MG TABLET PO SCH (08:35)
[2017-07-10] MEDS: POLYETHYL GLYCOL 3350 17gm PACKET PO SCH (08:35)
[2017-07-10] MEDS: ENOXAPARIN 40 MG/0.4 ML INJECTION SQ SCH (08:35)
[2017-07-10] MEDS: SENNA + DOCUSATE TABLET PO SCH (08:35)
[2017-07-10] MEDS: CITALOPRAM 10 MG TABLET PO SCH (08:35)
[2017-07-10] MEDS: ASPIRIN *EC* 81 MG TABLET PO SCH (08:35)
[2017-07-10] MEDS: INSULIN ASPART 100unit/ml INJECTION SQ PRN (12:09)
[2017-07-10 15:09] VITALS: BP 140/67; PULSE 99; TEMP 96.4; O2SAT 95
--- NOTE | 2017-07-10 22:13 | Discharge Summary ---
Discharge Information Date of admission: 07/07/17 02:00 Anticipated date of discharge: 07/10/17 Attending Physician: Lilibeth Villalba MD Primary care physician: Kendra Morales MD Consults: Consulting Provider: Harvinder Colvin Reason For Exam: concern for gallstone pancreatitis - Discharge Diagnosis (1) Pancreatitis, gallstone Status: Acute (2) Cholelithiasis Status: Acute (3) Hepatitis Status: Acute (4) Acute renal failure Status: Acute Acute gallstone pancreatitis, resolved Acute hepatitis secondary to above, improving Acute kidney injury, suspect prerenal, resolved Escherichia coli UTI, pansensitive Hypokalemia, not present on admission, resolved Acute encephalopathy Type II diabetes Anemia, suspect chronic Obstructive sleep apnea, on CPAP GERD Constipation - Laboratory Labs: White count on admission 20.8 with 88% neutrophil and 4% bands; hemoglobin 10.6 ; admission creatinine/BUN 1.6/25, AST 405, ALT 404, alkaline phosphatase 308, and bilirubin 4.1-largely conjugated. Admission lipase 1776 07/10/17 03:46 07/10/17 03:46 Acute hepatitis serologies all negative. Serum iron 48, TIBC 259, iron saturation 19% At discharge bilirubin 1.0, AST 101, ALT 165, and alkaline phosphatase 237 - Microbiology Urine culture obtained 07/09/17 with >100,000 colonies pansensitive Escherichia coli - Radiology Radiology: CT of the abdomen and pelvis with contrast on 07/07/17: Mild atelectasis in the lower lobes. Heart is mildly enlarged. The liver is fatty infiltrated without enhancing lesion or bile duct dilatation. Gallstones noted within the gallbladder without obvious adjacent inflammation or fluid. Evaluation is somewhat limited due to motion artifact in this area. The spleen is normal. The pancreas appears normal. The adrenal glands and kidneys are within normal limits. No abdominal or pelvic lymphadenopathy. Bladder is normal. Uterus is unremarkable. No free fluid or evidence of a bowel obstruction. The appendix is normal. Bone windows show right femoral hardware with bony demineralization, degenerative change and scoliosis in the lumbar spine. Chronic appearing L1 compression fracture. Impression: 1. No acute disease process seen in the abdomen or pelvis. 2. Cholelithiasis. 3. Hepatic steatosis. History of Present Illness HPI: Pleasant 87 year old female patient with N/V. I discussed with patient and also with ER DR who provided info from outside hospital. She has been having brown/bilious emesis intermittently for about 1 month, increasing episodes, now to daily. She says she is a person who tries to avoid going to drs so waitied until it got much worse/this bad to be seen. Was seen in [place] on , labs drawn eval'd and got outpatient sono. I believe ordering physician d/w Dr Colvin. GB US showed gallstones but reportedly no CBD dilatation noted. Was offered admit last kaitlin but was feeling ok so declined. Returned tonight when n/v worse. Aslo with soem intermittent diarrhea. She denied abd pain to me but told ER had RUQ pain. She denies fever chills. She does not drink alcohol. Has never had abdominal surgery, EGD or colonoscopy. In ER she got fluids and I asked for zosyn to be administered. Dr Rodriguez spoke w Dr Colvin who agreed would consult. Hospital Course This is a general summary of the patient's hospital course. For more details refer to the complete medical record. Hospital course: Patient was admitted on 07/07/17 with gallstone pancreatitis and acute kidney injury. She was started on IV Zosyn and IV fluids for a creatinine level of 1.6. Her renal failure was attributed to dehydration. Analgesics and antiemetics were available for symptom control. Dr. Colvin was consulted, and recommended a hepatitis panel and CT scan of her abdomen and pelvis. CT scan showed cholelithiasis without obvious inflammation or fluid. It also showed hepatic steatosis. Lipase normalized following day and liver functions trended down progressively but remained modestly elevated at discharge. Her diet was advanced from nothing by mouth to clear liquids and then to low-fat diet, which was well-tolerated by 07/09/17. Urine culture grew out pansensitive Escherichia coli. She was mildly anemic, and iron studies were obtained. Iron level was 48, TIBC 259, % saturation = 19. On 07/08/17, the patient became more encephalopathic with belligerence, and on 07/09/17, she was paranoid, thinking that the RN was trying to kill her. Dilaudid and Flexeril were discontinued, in the event that these medications were contributing to her encephalopathy. Following discontinuation of narcotics acute encephalopathy resolved and on 07/10 the patient was drowsy but pleasant in the morning and more alert later in the day. The patient denied any concerns on the 9 indicating that her appetite was fine and that she was not short of breath. She denied any pain. Examination prior to discharge revealed the patient to be in no distress and skin was nonicteric. Respirations were nonlabored with clear breath sounds in the abdomen was entirely benign with no tenderness in the right upper quadrant. The patient's asked about starting an antidepressant however it's noted that she is on citalopram and no change in medications was made. The patient will complete a 5 day course of antibiotics to treat the Escherichia coli UTI in another day and a half. Amlodipine was added for blood pressure control during the hospitalization. The patient is asked to follow up with Dr. Kendra Morales in approximately one week for follow-up. Time spent with patient: discharge greater than 30 minutes Discharge Plan - Med Rec/Dispo Referrals/Follow Up: Kendra Morales MD [Family Provider] - 1 Week [facility] Instructions: Pancreatitis (GEN), Biliary Colic (GEN), Low Fat Diet (DC) Prescriptions: New Amlodipine [Norvasc] 5 mg PO DAILY #30 tab Amoxicillin 500 mg PO Q8HR #5 cap PEG 3350 17gm PACKET [Miralax] 17 gm PO DAILY PRN packet PRN Reason: Constipation Tramadol [Ultram] 50 mg PO BID PRN tab PRN Reason: Pain Continue Atorvastatin Calcium 80 mg PO HS #0 Cyclobenzaprine HCl 5 mg PO DAILY #0 Aspirin [Adult Low Dose Aspirin EC] 81 mg PO DAILY Citalopram [Celexa] 10 mg PO DAILY Acetaminophen [Acetaminophen Extra Strength] 500 mg PO Q4H PRN PRN Reason: Pain Ondansetron [Zofran Odt] 1 tab PO Q6H PRN PRN Reason: Nausea Metformin [Glucophage] 1,000 mg PO BID Sitagliptin [Januvia] 100 mg PO DAILY PRN PRN Reason: Hyperglycemia - Disposition 01 Discharged Home, Self-Care
== END 2017-07-10 17:05 | disposition home or self-care (01) | DRG 438 ==
LOC: ED 23:27 → SUATTDRO 07-07 02:00 → SRG 07-07 02:39
PROVIDERS: ADMIT Pediatrics; ATTEND Internal Medicine